=== PATIENT | male | born 1960 | race Caucasian/White ===

== ENCOUNTER → 2018-05-26 10:03 | Outpatient (CLI) | payer OTHER, SELFPAY ==
[2018-05-26 11:02] LABS: BUN Creatinine Ratio 26.4 (6-22); Blood Urea Nitrogen 29 mg/dL (9-20); Calcium 10.1 mg/dL (8.4-10.2); Carbon Dioxide 23 mmol/L (22-32); Chloride 106 mmol/L (98-107); Cholesterol 183 mg/dL (140-199); Estimated Glomerular Filt Rate > 60.0 mL/min (>60); Glucose 111 mg/dL (70-100); HDL Cholesterol 42 mg/dL (40-60); HEMOLYSIS < 15 (0-50); LDL Cholesterol Calculated 103 mg/dL (<100); Potassium 4.8 mmol/L (3.4-5.1); Sodium 143 mmol/L (137-145); Triglycerides 191 mg/dL (35-150)
[2018-05-26 11:17] LABS: Vitamin D 25 Hydroxy (D3) 30.7 ng/mL (30.0-100.0)
== END ==
PROVIDERS: PCP Student in an Organized Health Care Education/Training Program; Visit Provider Student in an Organized Health Care Education/Training Program
DX: Z13.220 Encounter for screening for lipoid disorders (principal); E55.9 Vitamin D deficiency, unspecified; Z87.442 Personal history of urinary calculi
CPT/HCPCS: 36415; 80048; 80061; 82306

== ENCOUNTER → 2019-10-10 09:33 | Outpatient (CLI) | payer OTHER, SELFPAY ==
[2019-10-10 11:20] LABS: Hemoglobin A1C% w Est Avg Glu 6.5 % (4.0-6.0)
[2019-10-10 11:23] LABS: BUN Creatinine Ratio 17.3 (6-22); Blood Urea Nitrogen 19 mg/dL (9-20); Calcium 10.1 mg/dL (8.4-10.2); Carbon Dioxide 27 mmol/L (22-32); Chloride 103 mmol/L (98-107); Estimated Glomerular Filt Rate > 60.0 mL/min (>60); Glucose 102 mg/dL (70-100); HEMOLYSIS < 15 (0-50); Potassium 5.1 mmol/L (3.4-5.1); Sodium 139 mmol/L (137-145)
== END ==
PROVIDERS: PCP Student in an Organized Health Care Education/Training Program; Referring Provider Student in an Organized Health Care Education/Training Program; Visit Provider Student in an Organized Health Care Education/Training Program
DX: E66.9 Obesity, unspecified (principal); I10 Essential (primary) hypertension
CPT/HCPCS: 36415; 80048; 83036

== ENCOUNTER 2020-04-21 13:54 | Emergency (ER) | payer OTHER, SELFPAY ==
[2020-04-21 14:26] VITALS: BP 126/83; PULSE 85; RESP 12; TEMP 36.8; O2SAT 96; BMI 38.0
--- NOTE | 2020-04-21 14:34 | DI.RAD.S_ITS ---
PROCEDURE: XR KUB INDICATIONS: left flank pain hx protein stones TECHNIQUE: One view of the abdomen acquired. COMPARISON: CT, ABDOMEN WITH CONTRAST, 05/14/2010, 14:05. FINDINGS: Surgical changes and devices: None. Bowel: Bowel gas pattern is normal. Soft tissues: No kidney stones identified. No suspicious abdominal calcifications. Visualized solid organ contours appear normal in size. Bones: No suspicious bony lesions. Bilateral hip arthroplasties. IMPRESSION: No kidney stones identified. Consider further evaluation with CT KUB. Dictated by: Gonzalez Laird M.D. on 04/21/2020 at 13:53 Approved by: Gonzalez Larid M.D. on 04/21/2020 at 13:54
[2020-04-21 15:06] LABS: Add Manual Diff / Slide Review NO; Basophils Absolute Auto 100 /uL (0-100); Basophils Percent Auto 0.8 % (0-2); Eosinophils Absolute Auto 200 /uL (0-450); Eosinophils Percent Auto 1.3 % (2-4); Hematocrit 47.8 % (41-53); Hemoglobin 15.9 g/dL (13.5-17.5); Lymphocytes Absolute Auto 1600 /uL (1100-4500); Lymphocytes Percent Auto 12.2 % (25-40); Mean Corpuscular HGB Conc 33.3 % (30-36); Mean Corpuscular Hemoglobin 29.7 PG (26-34); Mean Corpuscular Volume 89.3 fL (80-100); Monocytes Absolute Auto 1100 /uL (0-900); Neutrophils Absolute Auto 10400 /uL (1500-7000); Neutrophils Percent Auto 77.7 % (50-75); Platelet Count 361 X10^3/uL (150-400); Red Blood Cell Count 5.36 X10^6/uL (4.5-5.9); Red Cell Distribution Width 14.5 % (11.6-14.8); White Blood Cell Count 13.4 X10^3/uL (4.5-11.0)
[2020-04-21 15:15] LABS: Alanine Aminotransferase 27 IU/L (<50); Albumin Globulin Ratio 1.4 (1.0-2.8); Alkaline Phosphatase 53 U/L (38-126); Aspartate Aminotransferase 29 IU/L (17-59); BUN Creatinine Ratio 16.2 (6-22); Bilirubin Total 1.3 mg/dL (0.2-1.3); Blood Urea Nitrogen 22 mg/dL (9-20); Calcium 9.9 mg/dL (8.4-10.2); Carbon Dioxide 27 mmol/L (22-32); Chloride 97 mmol/L (98-107); Estimated Glomerular Filt Rate 53.5 mL/min (>60); Globulin 3.7 g/dL (1.7-4.1); Glucose 118 mg/dL (80-110); HEMOLYSIS 21 (0-50); Potassium 4.7 mmol/L (3.4-5.1); Sodium 134 mmol/L (137-145); Total Protein 8.7 g/dL (6.3-8.2)
--- NOTE | 2020-04-21 16:44 | PC.NURSE ---
pt with history of protein kidney stones. having L flank pain radiating to grown. taking flowmax which is helping his urinary flow. States this feels like previous episodes of stones. denies blood in urine.
[2020-04-21 16:56] VITALS: PULSE 75; O2SAT 96
--- NOTE | 2020-04-21 16:58 | DI.CT.S_ITS ---
PROCEDURE: CT KIDNEY URETER BLADDER (KUB) INDICATIONS: left flank pain, hx stones TECHNIQUE: Noncontrast 5 mm thick sections acquired from the diaphragms to the symphysis. 5 mm thick coronal and sagittal reformats were then performed. For radiation dose reduction, the following was used: automated exposure control, adjustment of mA and/or kV according to patient size. COMPARISON: [facility], CT, ABDOMEN WITH CONTRAST, 05/14/2010, 14:05. [facility], CR, XR KUB, 04/21/2020, 14:33. FINDINGS: Image quality: There is artifact associated with the metallic hardware. Lung bases: Lung bases are clear. Heart size is normal. Urinary system: Both kidneys are normal in size. No kidney stones. No hydronephrosis or perinephric fat stranding. Both ureters appear non-dilated throughout their expected courses. Bladder wall thickness is normal; no calcified bladder stones. Other solid organs: Liver is normal in size. Gallbladder wall is not thickened. Pancreas is normal in contours. Spleen is normal in size. No adrenal nodules. Peritoneum and bowel: Unenhanced bowel loops demonstrate normal wall thickness and caliber. No free fluid or air. Colonic diverticulosis is seen, without findings of active diverticulitis. Nodes and vessels: No retroperitoneal or mesenteric adenopathy by size criteria. Aorta and inferior vena cava are normal in caliber. Abdominal wall: A mild periumbilical hernia is seen, containing fat. Pelvis: No free pelvic fluid. No inguinal hernias or adenopathy. Bones: No suspicious bony lesions. Bilateral hip arthroplasty hardware is seen. No vertebral body compression fractures. Focal L4-L5 degenerative change is seen. Milder degenerative changes are seen elsewhere. IMPRESSION: No findings of stones or obstructive uropathy can be seen. Incidental note is made of: Fat containing periumbilical hernia Focal L4-5 degenerative change Diverticulosis, without active diverticulitis Bilateral hip arthroplasty hardware, with associated streak artifact Dictated by: Anthony Alarcon M.D. on 04/21/2020 at 16:36 Approved by: Anthony Alarcon M.D. on 04/21/2020 at 16:38
[2020-04-21] MEDS: SODIUM CHLORIDE 0.9% 1,000 ML 1000 ML IV (17:18)
--- NOTE | 2020-04-21 20:19 | ED_ITS ---
HPI - Male Genitourinary <HARRIETT Restrepo - Last Filed: 04/21/20 20:23> General Chief complaint: Urogenital-Male Stated complaint: lower abdominal/groin pain/stones Time Seen by Provider: 04/21/20 16:52 Source: patient and family Mode of arrival: Ambulatory Limitations: no limitations History of Present Illness HPI Narrative: The patient is a 59-year-old male nonsmoker presents with a chief complaint of left-sided flank pain radiating around to the left side of his groin. He has a history of kidney stones, states this feels incredibly from earlier. States that it came on about 3 days ago. Has nausea and vomiting when he has severe pain. Pain is colicky. Denies any fevers dysuria or hematuria. Denies any chest pain or shortness of breath. He has taken 1 pain pill this m orning because the pain got very bad. He states that using incredibly pain when he got here, urinated and felt much improved once he came back to the emergency department from the waiting room. Related Data Previous Rx's Medication Instructions Recorded aspirin 81 mg chewable tablet 81 mg PO DAILY #30 tab 05/15/18 lisinopril 20 1 tab PO DAILY #90 tab 11/06/19 mg-hydrochlorothiazide 25 mg tablet potassium citrate 10 mEq (1,080 10 meq PO QDAY #90 tab 11/06/19 mg) tablet,extended release tamsulosin 0.4 mg capsule 0.4 mg PO DAILY 14 Days #14 cap 04/20/20 Allergies Allergy/AdvReac Type Severity Reaction Status Date / Time No Known Drug Allergies Allergy Verified 04/21/20 14:31 Review of Systems <HARRIETT Restrepo - Last Filed: 04/21/20 20:23> Review of Systems Narrative: GENERAL: Denies chills, fatigue, malaise, fever, sweats. HEENT: Denies sinus pain, ear pain, sore throat, difficulty swallowing, dizziness. RESPIRATORY: Denies dyspnea, cough, wheezing, hemoptysis, sputum. CARDIOVASCULAR: Denies chest pain, palpitations, orthopnea, edema, GASTROINTESTINAL: See HPI : See HPI MUSCULOSKELETAL: denies weakness, joint pain, or bony pain SKIN: Denies rash, skin lesions, or other NEUROLOGIC: Denies weakness, headache, numbness, change in speech, confusion, seizures, incoordination. PSYCHIATRIC: No concerning psychosocial issues. 12 point review of systems is negative except for those stated above Patient History <HRARIETT Restrepo - Last Filed: 04/21/20 20:23> Medical History (Updated 04/21/20 @ 18:35 by HARRIETT Restrepo) ADD (attention deficit disorder) (Chronic) Carpal tunnel syndrome (Resolved 2012) Colon polyps (Resolved 04/2017) Diverticulosis of colon (Resolved 04/2017) External hemorrhoids without complication (Chronic) Hypertension (Chronic 1989) Kidney stones (Resolved 2000) Low testosterone (Chronic 2011) Obesity (BMI 35.0-39.9 without comorbidity) (Chronic) Osteoarthritis (Chronic) Surgical History (Updated 05/15/18 @ 15:17 by Esteban Newsome MD) History of carpal tunnel repair (Resolved 11/2013) History of hip surgery (Resolved ~11/2016) History of lithotripsy (Resolved) Hx of colonoscopy with polypectomy (Resolved 04/2017) Family History (Updated 07/06/16 @ 00:00 by Conversion Provider) Brother Age: 71 Hypertension Brother Age: 68 Hypertension Father Colon cancer Heart disease Grandfather Cancer Mother Cancer Social History Smoking Status: Never smoker alcohol intake: never substance use type: does not use Smoking Status: Never smoker Substance Use Type: marijuana Exam <HARRIETT Restrepo - Last Filed: 04/21/20 20:23> Narrative Exam Narrative: GENERAL: This is a well-nourished, well-developed patient, in no acute distress HEAD: Atraumatic. Normocephalic. No temporal or scalp tenderness. EYES: Pupils equal round and reactive. Extraocular motions intact. No scleral icterus. No injection or drainage. ENT: Nose without bleeding, purulent drainage or septal hematoma. Wearing a mask Airway patent. NECK: Trachea midline. No JVD or lymphadenopathy. Supple, nontender, no meningeal signs. CARDIOVASCULAR: Regular rate and rhythm RESPIRATORY: Clear to auscultation. Breath sounds equal bilaterally. No wheezes, rales, or rhonchi. No cough. No increased respiratory effort. No accessory muscle use. GASTROINTESTINAL: Abdomen soft, non-tender, nondistended. No hepato- splenomegaly, or palpable masses. No guarding. EXTREMITIES: No clubbing, cyanosis, or edema. No joint tenderness, effusion, or edema noted. BACK: Nontender without deformity or crepitance. No flank tenderness. NEURO: AOx3. SKIN: No rash or erythema on visible skin Initial Vital Signs Initial Vital Signs: Vital Signs Temperature 98.3 F 04/21/20 14:26 Pulse Rate 85 04/21/20 14:26 Respiratory Rate 12 04/21/20 14:26 Blood Pressure 126/83 04/21/20 14:26 Pulse Oximetry 96 04/21/20 14:26 <Tamar Hernandez MD - Last Filed: 04/29/20 08:28> Initial Vital Signs Initial Vital Signs: Vital Signs Temperature 98.3 F 04/21/20 14:26 Pulse Rate 85 04/21/20 14:26 Respiratory Rate 12 04/21/20 14:26 Blood Pressure 126/83 04/21/20 14:26 Pulse Oximetry 96 04/21/20 14:26 Scores <HARRIETT Restrepo - Last Filed: 04/21/20 20:23> GCS Sarah coma scale eye opening: Spontaneous [place] coma scale verbal response: Orientated [place] coma scale motor response: Obey commands [place] coma scale total score: 15 Course <HARRIETT Restrepo - Last Filed: 04/21/20 20:23> Orders Ordered: Discontinued Medications Sodium Chloride (Normal Saline 0.9%) 1,000 mls @ 1,000 mls/hr IV BOLUS ONE Stop: 04/21/20 17:57 Last Infusion: 04/21/20 18:21 Dose: 0 mls/hr Documented by: Admin: 04/21/20 17:18 Dose: 1,000 mls/hr Documented by: CARMEN Vital Signs Vital signs: Vital Signs - 8 hr 04/21/20 14:26 04/21/20 16:56 Temperature 98.3 F Pulse Rate 85 75 Respiratory Rate 12 Blood Pressure 126/83 Pulse Oximetry 96 96 <Tamar Hernandez MD - Last Filed: 04/29/20 08:28> Orders Ordered: Discontinued Medications Sodium Chloride (Normal Saline 0.9%) 1,000 mls @ 1,000 mls/hr IV BOLUS ONE Stop: 04/21/20 17:57 Last Infusion: 04/21/20 18:21 Dose: 0 mls/hr Documented by: Admin: 04/21/20 17:18 Dose: 1,000 mls/hr Documented by: CARMEN Vital Signs Vital signs: Vital Signs - 8 hr 04/21/20 14:26 04/21/20 16:56 Temperature 98.3 F Pulse Rate 85 75 Respiratory Rate 12 Blood Pressure 126/83 Pulse Oximetry 96 96 MDM - Male Genitourinary <SUSAN Restrepo - Last Filed: 04/21/20 20:23> Lab Data Result diagrams: 04/21/20 14:58 04/21/20 14:58 Labs: Lab Results 04/21/20 04/21/20 Range/Units 14:58 14:58 WBC 13.4 H (4.5-11.0) X10^3/uL RBC 5.36 (4.5-5.9) X10^6/uL Hgb 15.9 (13.5-17.5) g/dL Hct 47.8 (41-53) % MCV 89.3 (80-100) fL MCH 29.7 (26-34) PG MCHC 33.3 (30-36) % RDW 14.5 (11.6-14.8) % Plt Count 361 (150-400) X10^3/uL Neut % (Auto) 77.7 H (50-75) % Lymph % (Auto) 12.2 L (25-40) % [place] % (Auto) 8.0 (3-14) % Eos % (Auto) 1.3 L (2-4) % Baso % (Auto) 0.8 (0-2) % Neut # (Auto) 90693 H (7998-6034) /uL Lymph # (Auto) 1600 (0306-4921) /uL [place] # (Auto) 1100 H (0-900) /uL Eos # (Auto) 200 (0-450) /uL Baso # (Auto) 100 (0-100) /uL Sodium 134 L (137-145) mmol/L Potassium 4.7 (3.4-5.1) mmol/L Chloride 97 L (98-107) mmol/L Carbon Dioxide 27 (22-32) mmol/L BUN 22 H (9-20) mg/dL Creatinine 1.36 H (0.66-1.25) mg/dL Estimated GFR 53.5 L (>60) mL/min BUN/Creatinine Ratio 16.2 (6-22) Glucose 118 H (80-110) mg/dL Calcium 9.9 (8.4-10.2) mg/dL Total Bilirubin 1.3 (0.2-1.3) mg/dL AST 29 (17-59) IU/L ALT 27 (<50) IU/L Alkaline Phosphatase 53 (38-126) U/L Total Protein 8.7 H (6.3-8.2) g/dL Albumin 5.0 (3.5-5.0) g/dL Globulin 3.7 (1.7-4.1) g/dL Albumin/Globulin Ratio 1.4 (1.0-2.8) Urine Dip Bedside Urine Glucose Negative Bedside Urine Bilirubin - Negative Bedside Urine Ketone - Negative Urine Specific [place] 1.020 Bedside Urine Occult Blood - Negative Bedside Urine pH 6.0 Bedside Urine Protein +/- 15 Bedside Urine Urobilinogen - Negative Bedside Urine Nitrite - Negative Bedside Urine Leukocytes - Negative Esterase Imaging Data CT scan - abdomen/pelvis: Radiologist's Impression: [address] [place] [address] CT Scan Report Signed Patient: Tru Boykin [facility]#: [id number] : 1960Acct:[id number] Age/Sex: 59 / MDate of Service: 04/21/20 Loc: ED Accession Number: [id number] Procedure: CT kidney ureter bladder (KUB) Ordering Provider: Claudia Crews [employer]- PROCEDURE: CT KIDNEY URETER BLADDER (KUB) INDICATIONS: left flank pain, hx stones TECHNIQUE: Noncontrast 5 mm thick sections acquired from the diaphragms to the symphysis. 5 mm thick coronal and sagittal reformats were then performed. For radiation dose reduction, the following was used: automated exposure control, adjustment of mA and/or kV according to patient size. COMPARISON: [facility], CT, ABDOMEN WITH CONTRAST, 05/14/2010, 14:05. [facility], CR, XR KUB, 04/21/2020, 14:33. FINDINGS: Image quality: There is artifact associated with the metallic hardware. Lung bases: Lung bases are clear. Heart size is normal. Urinary system: Both kidneys are normal in size. No kidney stones. No hydronephrosis or perinephric fat stranding. Both ureters appear non-dilated throughout their expected courses. Bladder wall thickness is normal; no calcified bladder stones. Other solid organs: Liver is normal in size. Gallbladder wall is not thickened. Pancreas is normal in contours. Spleen is normal in size. No adrenal nodules. Peritoneum and bowel: Unenhanced bowel loops demonstrate normal wall thickness and caliber. No free fluid or air. Colonic diverticulosis is seen, without findings of active diverticulitis. Nodes and vessels: No retroperitoneal or mesenteric adenopathy by size criteria. Aorta and inferior vena cava are normal in caliber. Abdominal wall: A mild periumbilical hernia is seen, containing fat. Pelvis: No free pelvic fluid. No inguinal hernias or adenopathy. Bones: No suspicious bony lesions. Bilateral hip arthroplasty hardware is seen. No vertebral body compression fractures. Focal L4-L5 degenerative change is seen. Milder degenerative changes are seen elsewhere. IMPRESSION: No findings of stones or obstructive uropathy can be seen. Abdominal x-ray: Radiologist's Impression: [address] [place] [id number] XRay Report Signed Patient: Tru Boykin [facility]#: [id number] : 1960Acct:[id number] Age/Sex: 59 / MDate of Service: 04/21/20 Loc: ED Accession Number: [id number] Procedure: XR KUB Ordering Provider: Claudia Crews PROCEDURE: XR KUB INDICATIONS: left flank pain hx protein stones TECHNIQUE: One view of the abdomen acquired. COMPARISON: CT, ABDOMEN WITH CONTRAST, 05/14/2010, 14:05. FINDINGS: Surgical changes and devices: None. Bowel: Bowel gas pattern is normal. Soft tissues: No kidney stones identified. No suspicious abdominal calcifications. Visualized solid organ contours appear normal in size. Bones: No suspicious bony lesions. Bilateral hip arthroplasties. IMPRESSION: No kidney stones identified. Consider further evaluation with CT KUB. Dictated by: Gonzalez Laird M.D. on 04/21/2020 at 13:53 Approved by: Gonzalez Laird M.D. on 04/21/2020 at 13:54 [facility] Narrative Medical decision making narrative: The patient is a 59-year-old male presents with a chief complaint of left-sided flank pain radiating around his abdomen who presents believing he has a kidney stone. He has a history thereof. He was initially and much discomfort, then urinated and felt much improved. He has no obvious kidney stone on imaging. His creatinine is slightly increased to 1.36. Given his presentation and complaints, consistency with previous presentations of kidney stones, it is entirely possible that he had a stone and passed it prior to imaging today. I discussed at length rest, pushing fluids, following up with primary care provider in the next few days to monitor renal function etcetera. Patient has no questions or concerns upon discharge and states understanding return precautions as well as follow-up care. The patient declined any pain medications on discharge. He has no signs of infection in his urine and appears well and hemodynamically stable throughout his stay in the emergency department. Patient and have no questions or concerns upon discharge and state understanding return precautions as well as follow-up care. <Tamar Hernandez MD - Last Filed: 04/29/20 08:28> Lab Data Labs: Lab Results 04/21/20 04/21/20 Range/Units 14:58 14:58 WBC 13.4 H (4.5-11.0) X10^3/uL RBC 5.36 (4.5-5.9) X10^6/uL Hgb 15.9 (13.5-17.5) g/dL Hct 47.8 (41-53) % MCV 89.3 (80-100) fL MCH 29.7 (26-34) PG MCHC 33.3 (30-36) % RDW 14.5 (11.6-14.8) % Plt Count 361 (150-400) X10^3/uL Neut % (Auto) 77.7 H (50-75) % Lymph % (Auto) 12.2 L (25-40) % [place] % (Auto) 8.0 (3-14) % Eos % (Auto) 1.3 L (2-4) % Baso % (Auto) 0.8 (0-2) % Neut # (Auto) 12544 H (7672-3171) /uL Lymph # (Auto) 1600 (1857-9257) /uL [place] # (Auto) 1100 H (0-900) /uL Eos # (Auto) 200 (0-450) /uL Baso # (Auto) 100 (0-100) /uL Sodium 134 L (137-145) mmol/L Potassium 4.7 (3.4-5.1) mmol/L Chloride 97 L (98-107) mmol/L Carbon Dioxide 27 (22-32) mmol/L BUN 22 H (9-20) mg/dL Creatinine 1.36 H (0.66-1.25) mg/dL Estimated GFR 53.5 L (>60) mL/min BUN/Creatinine Ratio 16.2 (6-22) Glucose 118 H (80-110) mg/dL Calcium 9.9 (8.4-10.2) mg/dL Total Bilirubin 1.3 (0.2-1.3) mg/dL AST 29 (17-59) IU/L ALT 27 (<50) IU/L Alkaline Phosphatase 53 (38-126) U/L Total Protein 8.7 H (6.3-8.2) g/dL Albumin 5.0 (3.5-5.0) g/dL Globulin 3.7 (1.7-4.1) g/dL Albumin/Globulin Ratio 1.4 (1.0-2.8) Urine Dip Bedside Urine Glucose Negative Bedside Urine Bilirubin - Negative Bedside Urine Ketone - Negative Urine Specific [place] 1.020 Bedside Urine Occult Blood - Negative Bedside Urine pH 6.0 Bedside Urine Protein +/- 15 Bedside Urine Urobilinogen - Negative Bedside Urine Nitrite - Negative Bedside Urine Leukocytes - Negative Esterase Discharge Plan Departure Patient Disposition: Home Clinical Impression: Acute flank pain Discharge Date/Time: 04/21/20 18:37 Instructions: DI for Abdominal Pain-Adult, DI for Flank Pain Activity Restrictions/Additional Instructions: Thank you for trusting us with your care today. As discussed, your CT shows no evidence of stones at this point time Given her initial presentation, I believe it is likely that you passed a stone. Please rest and push fluids Your creatinine did increase slightly. Please follow-up with primary care provider so this can be monitored. Please come back to the emergency department for any acute concerns. Prescriptions: No Action aspirin 81 mg tablet,chewable 81 mg PO DAILY Qty: 30 RF: 0 lisinopril-hydrochlorothiazide 20-25 mg tablet 1 tab PO DAILY Qty: 90 RF: 3 potassium citrate [Urocit-K 10] 10 mEq (1,080 mg) tablet extended release 10 meq PO QDAY Qty: 90 RF: 3 tamsulosin 0.4 mg capsule 0.4 mg PO DAILY 14 Days Qty: 14 RF: 0 Referrals: Esteban Newsome MD [Primary Care Provider] - <Tamar Hernandez MD - Last Filed: 04/29/20 08:28> Cosign ED Attending Cosignature Attestation: I was immediately available in the department for consultation throughout this patient's visit. I agree with documentation as above. Tamar Hernandez MD
== END 2020-04-21 18:37 | disposition home or self-care (01) ==
PROVIDERS: Emergency Provider Nurse Practitioner Family; PCP Student in an Organized Health Care Education/Training Program
DX: R10.9 Unspecified abdominal pain (principal); R79.89 Other specified abnormal findings of blood chemistry; Z87.442 Personal history of urinary calculi
CPT/HCPCS: 36415; 74018; 74176; 80053; 81003; 85025; 96360; 99284

== ENCOUNTER → 2020-05-16 10:35 | Outpatient (CLI) | payer OTHER, SELFPAY ==
[2020-05-16 12:06] LABS: BUN Creatinine Ratio 23.6 (6-22); Blood Urea Nitrogen 29 mg/dL (9-20); Calcium 10.2 mg/dL (8.4-10.2); Carbon Dioxide 29 mmol/L (22-32); Chloride 102 mmol/L (98-107); Estimated Glomerular Filt Rate > 60.0 mL/min (>60); Glucose 93 mg/dL (80-110); HEMOLYSIS < 15 (0-50); Potassium 4.5 mmol/L (3.4-5.1); Sodium 140 mmol/L (137-145)
== END ==
PROVIDERS: PCP Student in an Organized Health Care Education/Training Program; Referring Provider Student in an Organized Health Care Education/Training Program; Visit Provider Student in an Organized Health Care Education/Training Program
DX: N17.9 Acute kidney failure, unspecified (principal); N20.0 Calculus of kidney
CPT/HCPCS: 36415; 80048

== ENCOUNTER 2020-06-18 07:27 | Emergency (ER) | payer OTHER, SELFPAY ==
--- NOTE | 2020-06-18 07:29 | ED_ITS ---
HPI - Back Pain/Injury General Chief Complaint: Urogenital-Male Stated Complaint: left lower back pain/vomiting x6 days Time Seen by Provider: 06/18/20 07:29 Source: patient Mode of arrival: Ambulatory Limitations: no limitations History of Present Illness HPI Narrative: 59-year-old male nonsmoker with history hypertension and prior kidney stones requiring surgical intervention presents with a chief complaint of about 1 week worth of left flank pain reminiscent of prior stones. He denies any injury nor fever or chills. He has been nauseated and had a few episodes of vomiting that seemed to be associated with spikes in his pain. He denies any provocation or palliation of his pain and states it radiates around his left flank a bit. MD Complaint: back pain Onset (ago): day(s) Duration: intermittent Similar Symptoms Previously: Yes Location: left flank Severity: severe Quality: burning and stabbing Radiation: flank Relieving factors: none Exacerbating factors: none Related Data Previous Rx's Medication Instructions Recorded aspirin 81 mg chewable tablet 81 mg PO DAILY #30 tab 05/15/18 lisinopril 20 1 tab PO DAILY #90 tab 11/06/19 mg-hydrochlorothiazide 25 mg tablet potassium citrate 10 mEq (1,080 10 meq PO QDAY #90 tab 11/06/19 mg) tablet,extended release tamsulosin 0.4 mg capsule 0.4 mg PO DAILY #90 cap 04/30/20 hydrocodone-acetaminophen 1 tab PO Q4-6H PRN #10 tab 06/18/20 ketorolac 10 mg PO Q6H PRN #14 tab 06/18/20 ondansetron 4 mg PO TID-QID PRN #10 tab 06/18/20 tamsulosin [Flomax] 0.4 mg PO DAILY #10 cap 06/18/20 Allergies Allergy/AdvReac Type Severity Reaction Status Date / Time No Known Drug Allergies Allergy Verified 04/21/20 14:31 Review of Systems Constitutional Constitutional: Denies chills, Denies fatigue, Denies fever(s), Denies frequent falls, Denies lethargy and Denies weakness Eyes Eyes: Denies change in vision, Denies eye discharge, Denies irritation and Denies loss of vision ENT Ears, Nose, Mouth, and Throat: Denies change in voice, Denies dizziness, Denies neck pain, Denies sore throat and Denies throat swelling Cardiovascular Cardiovascular: Denies chest pain, Denies irregular heart rhythm, Denies lightheadedness, Denies palpitations, Denies dyspnea, Denies dyspnea on exertion and Denies orthopnea Respiratory Respiratory: Denies cough, Denies dyspnea, Denies dyspnea on exertion and Denies wheezing Gastrointestinal Gastrointestinal: Denies abdominal pain, Denies change in bowel habits, Denies diarrhea, Denies nausea and Denies vomiting Genitourinary Genitourinary: Reports flank pain Genitourinary: Reports flank pain Musculoskeletal Musculoskeletal: Denies neck pain and Denies numbness Integumentary/Breasts Skin/Breast: Denies pruritus, Denies erythema, Denies rash and Denies wounds Neurologic Neurologic: Denies behavioral changes, Denies confusion, Denies dizziness, Denies frequent falls, Denies loss of vision, Denies numbness and Denies weakness Psychiatric Psychiatric: Denies anxiety, Denies behavioral changes, Denies confusion, Denies depression, Denies homicidal ideation and Denies suicidal ideation Endocrine Endocrine: Denies fatigue, Denies flushing and Denies palpitations Hematologic/Lymphatic Hematologic/Lymphatic: Denies easy bruising Allergic/Immunologic Allergic/Immunologic: Denies urticaria, Denies throat swelling and Denies wheezing Patient History Medical History ADD (attention deficit disorder) (Chronic) Carpal tunnel syndrome (Resolved 2012) Colon polyps (Resolved 04/2017) Diverticulosis of colon (Resolved 04/2017) External hemorrhoids without complication (Chronic) Hypertension (Chronic 1989) Kidney stones (Resolved 2000) Low testosterone (Chronic 2011) Obesity (BMI 35.0-39.9 without comorbidity) (Chronic) Osteoarthritis (Chronic) Surgical History History of carpal tunnel repair (Resolved 11/2013) History of hip surgery (Resolved ~11/2016) History of lithotripsy (Resolved) Hx of colonoscopy with polypectomy (Resolved 04/2017) Family History Brother Age: 71 Hypertension Brother Age: 68 Hypertension Father Colon cancer Heart disease Grandfather Cancer Mother Cancer Social History Smoking Status: Never smoker alcohol intake: never substance use type: does not use Smoking Status: Never smoker Substance Use Type: marijuana Exam Narrative Exam Narrative: GENERAL: [59] year old patient appears stated age. Well-no urished, well-developed patient, in mild distress. Obviously uncomfortable, pacing in his room HEAD: Atraumatic. Normocephalic. EYES: Pupils equal round and reactive. Extraocular motions intact. No scleral icterus. No injection or drainage. ENT: Nose without bleeding, purulent drainage. Throat without erythema, tonsillar hypertrophy or exudate. Airway patent. NECK: Trachea midline. Non tender CARDIOVASCULAR: Regular rate and rhythm without murmurs, gallops, or rubs. RESPIRATORY: Clear to auscultation. Breath sounds equal bilaterally. No wheezes, rales, or rhonchi. GASTROINTESTINAL: Abdomen soft, non-tender, nondistended. EXTREMITIES: No edema or joint tenderness. BACK: Nontender without deformity or crepitance. No flank tenderness. NEURO: AOx3. SKIN: No rash or erythema of visible areas Initial Vital Signs Initial Vital Signs: Vital Signs Temperature 98.4 F 06/18/20 07:36 Pulse Rate 93 H 06/18/20 07:36 Respiratory Rate 19 06/18/20 07:36 Blood Pressure 140/88 06/18/20 07:36 Pulse Oximetry 98 06/18/20 07:36 Course Orders Ordered: ED Orders 06/18/20 07:45 Basic Metabolic Panel Stat Complete Blood Count AUTO DIFF Stat 06/18/20 08:32 CT kidney ureter bladder (KUB) Stat Discontinued Medications Sodium Chloride (Normal Saline 0.9%) 1,000 mls @ 1,000 mls/hr IV BOLUS ONE Stop: 06/18/20 08:30 Last Infusion: 06/18/20 09:01 Dose: 0 mls/hr Documented by: Admin: 06/18/20 08:21 Dose: 1,000 mls/hr Documented by: BTONER Ketorolac Tromethamine (Toradol) 15 mg IV NOW ONE Stop: 06/18/20 07:32 Last Admin: 06/18/20 08:25 Dose: 15 mg Documented by: BTONER Ondansetron HCl (Zofran) 4 mg IV Q4HR PRN PRN Reason: Nausea And Vomiting Last Admin: 06/18/20 08:25 Dose: 4 mg Documented by: BTONER Vital Signs Vital signs: Vital Signs - 8 hr 06/18/20 07:36 06/18/20 09:55 Temperature 98.4 F Pulse Rate 93 H Respiratory Rate 19 16 Blood Pressure 140/88 99/61 Pulse Oximetry 98 98 MDM - Back Pain/Injury Lab Data Result diagrams: 06/18/20 07:45 06/18/20 07:45 Labs: Lab Results 06/18/20 06/18/20 Range/Units 07:45 07:45 WBC 9.5 (4.5-11.0) X10^3/uL RBC 5.43 (4.5-5.9) X10^6/uL Hgb 16.4 (13.5-17.5) g/dL Hct 48.5 (41-53) % MCV 89.3 (80-100) fL MCH 30.2 (26-34) PG MCHC 33.8 (30-36) % RDW 14.4 (11.6-14.8) % Plt Count 357 (150-400) X10^3/uL Neut % (Auto) 64.3 (50-75) % Lymph % (Auto) 24.0 L (25-40) % Luce % (Auto) 8.3 (3-14) % Eos % (Auto) 2.7 (2-4) % Baso % (Auto) 0.7 (0-2) % Neut # (Auto) 6100 (9089-9571) /uL Lymph # (Auto) 2300 (8582-6492) /uL Luce # (Auto) 800 (0-900) /uL Eos # (Auto) 300 (0-450) /uL Baso # (Auto) 100 (0-100) /uL Sodium 133 L (137-145) mmol/L Potassium 4.2 (3.4-5.1) mmol/L Chloride 101 (98-107) mmol/L Carbon Dioxide 24 (22-32) mmol/L BUN 20 (9-20) mg/dL Creatinine 1.18 (0.66-1.25) mg/dL Estimated GFR > 60.0 (>60) mL/min BUN/Creatinine Ratio 16.9 (6-22) Glucose 135 H (80-110) mg/dL Calcium 9.6 (8.4-10.2) mg/dL Urine Dip Bedside Urine Glucose Negative Bedside Urine Bilirubin - Negative Bedside Urine Ketone - Negative Urine Specific [place] 1.020 Bedside Urine Occult Blood - Negative Bedside Urine pH 6.0 Bedside Urine Protein - Negative Bedside Urine Urobilinogen - Negative Bedside Urine Nitrite - Negative Bedside Urine Leukocytes - Negative Esterase Imaging Data CT scan - abdomen/pelvis: Radiologist's Impression: 8 Gray Crowley DO Find Patient Imaging - Tru Boykin 59 M 1960 ACTIVITY DATE EXAM STATUS AUTHOR 06/18/20 08:[address] [address] [address] Scan Report Signed Patient: Tru Boykin [facility]#: [id number] : 1960Acct:[id number] Age/Sex: 59 / MDate of Service: 06/18/20 Loc: ED Accession Number: [id number] Procedure: CT kidney ureter bladder (KUB) Ordering Provider: Gray Crowley D.O. PROCEDURE: CT KIDNEY URETER BLADDER (KUB) INDICATIONS: severe L flank pain, hx of stones with surgery TECHNIQUE: Noncontrast 5 mm thick sections acquired from the diaphragms to the symphysis. 5 mm thick coronal and sagittal reformats were then performed. For radiation dose reduction, the following was used: automated exposure control, adjustment of mA and/or kV according to patient size. COMPARISON: [facility], CT, CT KIDNEY URETER BLADDER (KUB), 04/21/2020, 17:00. FINDINGS: Image quality: Excellent. Lung bases: Lung bases are clear. Heart size is normal. Urinary system: Both kidneys are normal in size. A 2 mm nonobstructing calculus is seen in the inferior pole of the right kidney. No hydronephrosis or perinephric fat stranding. Both ureters appear non-dilated throughout their expected courses. Bladder wall thickness is normal; no calcified bladder stones. Other solid organs: Liver is normal in size. Gallbladder appears normal. Pancreas is normal in contours. Spleen is normal in size. No adrenal nodules. Peritoneum and bowel: Multiple diverticula are seen in the colon without signs of acute diverticulitis. The appendix appears normal. No signs of small bowel obstruction. No free fluid or air. Nodes and vessels: No retroperitoneal or mesenteric adenopathy by size criteria. Aorta and inferior vena cava are normal in caliber. Abdominal wall: There is a small fat containing periumbilical hernia. Pelvis: No free pelvic fluid. No inguinal hernias or adenopathy. Bones: No suspicious bony lesions. No vertebral body compression fractures. Postsurgical changes are seen from bilateral hip arthroplasties. Mild degenerative changes are seen in the spine. Stable calcifications are seen at the origin of the left adductor longus muscle that are most likely the sequela of a prior injury/strain. IMPRESSION: 1. Nonobstructing 2 mm calculus in the inferior pole of the right kidney. No hydronephrosis. 2. Colonic diverticulosis without signs of acute diverticulitis. Dictated by: Lew Eastman M.D. on 06/18/2020 at 8:45 Approved by: Lew Eastman M.D. on 06/18/2020 at 8:55 Discharge Plan Departure Patient Disposition: Home Clinical Impression: Acute flank pain Discharge Date/Time: 06/18/20 09:35 Instructions: DI for Kidney Stones Activity Restrictions/Additional Instructions: *You have been diagnosed with [left flank pain, possibly ureteral spasm or a passed kidney stone, however CT does not show a current kidney stone] *What to do: *Take medications as directed: Prescriptions have been sent to [facility] at your request *Follow up with your primary care provider in 2-3 days, call for an appointment. Let them know you were seen in the Emergency Department and that we ask that you be seen in follow up *Return to ER if you should have any new, worsening or concerning symptoms, such as [worsening pain, fever greater than 101 F, shaking chills, persistent v omiting or other bothersome symptoms] Prescriptions: New hydrocodone-acetaminophen 5-325 mg tablet 1 tab PO Q4-6H PRN (Reason: pain) Qty: 10 RF: 0 ketorolac 10 mg tablet 10 mg PO Q6H PRN (Reason: pain) Qty: 14 RF: 0 tamsulosin [Flomax] 0.4 mg capsule 0.4 mg PO DAILY Qty: 10 RF: 0 ondansetron 4 mg tablet,disintegrating 4 mg PO TID-QID PRN (Reason: nausea and vomiting) Qty: 10 RF: 0 No Action aspirin 81 mg tablet,chewable 81 mg PO DAILY Qty: 30 RF: 0 lisinopril-hydrochlorothiazide 20-25 mg tablet 1 tab PO DAILY Qty: 90 RF: 3 potassium citrate [Urocit-K 10] 10 mEq (1,080 mg) tablet extended release 10 meq PO QDAY Qty: 90 RF: 3 tamsulosin 0.4 mg capsule 0.4 mg PO DAILY Qty: 90 RF: 1 Referrals: Esteban Newsome MD [Primary Care Provider] -
[2020-06-18 07:36] VITALS: BP 140/88; PULSE 93; RESP 19; TEMP 36.9; O2SAT 98; BMI 39.3
[2020-06-18 07:54] LABS: Add Manual Diff / Slide Review NO; Basophils Absolute Auto 100 /uL (0-100); Basophils Percent Auto 0.7 % (0-2); Eosinophils Absolute Auto 300 /uL (0-450); Eosinophils Percent Auto 2.7 % (2-4); Hematocrit 48.5 % (41-53); Hemoglobin 16.4 g/dL (13.5-17.5); Lymphocytes Absolute Auto 2300 /uL (1100-4500); Mean Corpuscular HGB Conc 33.8 % (30-36); Mean Corpuscular Hemoglobin 30.2 PG (26-34); Mean Corpuscular Volume 89.3 fL (80-100); Monocytes Absolute Auto 800 /uL (0-900); Monocytes Percent Auto 8.3 % (3-14); Neutrophils Absolute Auto 6100 /uL (1500-7000); Neutrophils Percent Auto 64.3 % (50-75); Platelet Count 357 X10^3/uL (150-400); Red Blood Cell Count 5.43 X10^6/uL (4.5-5.9); Red Cell Distribution Width 14.4 % (11.6-14.8); White Blood Cell Count 9.5 X10^3/uL (4.5-11.0)
[2020-06-18 08:05] LABS: BUN Creatinine Ratio 16.9 (6-22); Blood Urea Nitrogen 20 mg/dL (9-20); Calcium 9.6 mg/dL (8.4-10.2); Carbon Dioxide 24 mmol/L (22-32); Chloride 101 mmol/L (98-107); Estimated Glomerular Filt Rate > 60.0 mL/min (>60); Glucose 135 mg/dL (80-110); HEMOLYSIS 24 (0-50); Potassium 4.2 mmol/L (3.4-5.1); Sodium 133 mmol/L (137-145)
[2020-06-18] MEDS: SODIUM CHLORIDE 0.9% 1,000 ML 1000 ML IV (08:21)
[2020-06-18] MEDS: ONDANSETRON 4 MG/2 ML INJ IV (08:25)
[2020-06-18] MEDS: KETOROLAC 60 MG/2 ML VIAL 15 MG IV (08:25)
--- NOTE | 2020-06-18 08:32 | DI.CT.S_ITS ---
PROCEDURE: CT KIDNEY URETER BLADDER (KUB) INDICATIONS: severe L flank pain, hx of stones with surgery TECHNIQUE: Noncontrast 5 mm thick sections acquired from the diaphragms to the symphysis. 5 mm thick coronal and sagittal reformats were then performed. For radiation dose reduction, the following was used: automated exposure control, adjustment of mA and/or kV according to patient size. COMPARISON: [facility], CT, CT KIDNEY URETER BLADDER (KUB), 04/21/2020, 17:00. FINDINGS: Image quality: Excellent. Lung bases: Lung bases are clear. Heart size is normal. Urinary system: Both kidneys are normal in size. A 2 mm nonobstructing calculus is seen in the inferior pole of the right kidney. No hydronephrosis or perinephric fat stranding. Both ureters appear non-dilated throughout their expected courses. Bladder wall thickness is normal; no calcified bladder stones. Other solid organs: Liver is normal in size. Gallbladder appears normal. Pancreas is normal in contours. Spleen is normal in size. No adrenal nodules. Peritoneum and bowel: Multiple diverticula are seen in the colon without signs of acute diverticulitis. The appendix appears normal. No signs of small bowel obstruction. No free fluid or air. Nodes and vessels: No retroperitoneal or mesenteric adenopathy by size criteria. Aorta and inferior vena cava are normal in caliber. Abdominal wall: There is a small fat containing periumbilical hernia. Pelvis: No free pelvic fluid. No inguinal hernias or adenopathy. Bones: No suspicious bony lesions. No vertebral body compression fractures. Postsurgical changes are seen from bilateral hip arthroplasties. Mild degenerative changes are seen in the spine. Stable calcifications are seen at the origin of the left adductor longus muscle that are most likely the sequela of a prior injury/strain. IMPRESSION: 1. Nonobstructing 2 mm calculus in the inferior pole of the right kidney. No hydronephrosis. 2. Colonic diverticulosis without signs of acute diverticulitis. Dictated by: Lew Eastman M.D. on 06/18/2020 at 8:45 Approved by: Lew Eastman M.D. on 06/18/2020 at 8:55
--- NOTE | 2020-06-18 08:44 | PC.NURSE ---
pt states feels like last time kidney stone.
[2020-06-18 09:55] VITALS: BP 99/61; RESP 16; O2SAT 98
== END 2020-06-18 09:35 | disposition home or self-care (01) ==
PROVIDERS: Emergency Provider Emergency Medicine; PCP Student in an Organized Health Care Education/Training Program
DX: R10.9 Unspecified abdominal pain (principal); R11.2 Nausea with vomiting, unspecified; Z87.442 Personal history of urinary calculi
CPT/HCPCS: 36415; 74176; 80048; 81003; 85025; 96361; 96374; 96375; 99284; J1885; J2405

== ENCOUNTER → 2020-06-20 17:01 | Outpatient (ROUT) | payer OTHER, SELFPAY ==
[2020-06-20 17:22] LABS: Hemoglobin A1C% w Est Avg Glu 6.4 % (4.0-6.0)
[2020-06-20 17:52] LABS: Prostate Specific Antigen Scrn 2.38 ng/mL (0.1-4.0)
== END ==
PROVIDERS: PCP Student in an Organized Health Care Education/Training Program; Visit Provider Student in an Organized Health Care Education/Training Program
DX: R73.03 Prediabetes (principal); Z12.5 Encounter for screening for malignant neoplasm of prostate
CPT/HCPCS: 83036; G0103

== ENCOUNTER → 2020-07-08 09:52 | Outpatient (CLI) | payer OTHER, SELFPAY ==
--- NOTE | 2020-07-08 11:33 | DIET.PN ---
Diabetes Intake: Initial Assessment Assess: Mr. Nunez is a 59 YOM referred for type 2 diabetes with a hx of kidney stones and obesity. He has been able to manage his diabetes without medication, but knows he needs to lose weight to avoid complications. 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 He does not have a glucometer. He reports nearly 30 lb weight loss since making dietary changes for improved glycemic control and kidney health. Labs: Per pt report: 6.5 Meds: na Diet: per 24 hr recall: B: 2 brkfast burritos, hashbrown, diet soda; oatmeal w/ helton L: 12 subway sandw on WW bread D: chicken stirfry w/ br rice Sn: potato chips, popcorn Wt: 280lb Ht: 72 in BMI: 38 BP: 140.80 DX: Altered nutrition related laboratory values related to impaired glucose metabolism, lack of previous exposure to nutrition information as evidenced by pt report, diagnosis of diabetes, previous diet high in refined carbohydrates. Intervention: 1. Completed intake assessment. Discussed barriers to care. 2. Discussed pathophysiology of diabetes. Reviewed A1c and its correlation to blood glucose numbers. Discussed recommended BG ranges. 3. Discussed importance of self-monitoring, how often, and when to check. 4. Reviewed hyper/hypoglycemia and treatment. 5. Reviewed safe disposal of equipment (strip/lancets/insulin needles). 6. Created SMART goals for pt self-care and success. 7. Discussed program curriculum outline and class needs based on individual goals. SMART Goals: 1. Pt goal of 225lb through improved dietary habits including portion control, calorie counting, and consistent carb intake as well as incorporating resistance training at least 2 x/week. Monitor/Evaluate: Pt will attend full DSME program. Basic Nutrition class scheduled for Jul 31.
== END ==
PROVIDERS: PCP Student in an Organized Health Care Education/Training Program; Referring Provider Student in an Organized Health Care Education/Training Program; Visit Provider Student in an Organized Health Care Education/Training Program
DX: E11.9 Type 2 diabetes mellitus without complications (principal); E66.9 Obesity, unspecified; Z71.3 Dietary counseling and surveillance; Z68.38 Body mass index [BMI] 38.0-38.9, adult; Z87.442 Personal history of urinary calculi
CPT/HCPCS: G0108

== ENCOUNTER 2020-07-13 05:47 | Emergency (ER) | payer OTHER, SELFPAY ==
[2020-07-13 05:56] VITALS: BP 139/86; PULSE 72; RESP 18; TEMP 37; O2SAT 96; BMI 38.0
--- NOTE | 2020-07-13 06:00 | ED_ITS ---
HPI - Male Genitourinary General Chief complaint: Urogenital-Male Stated complaint: right side pain Time Seen by Provider: 07/13/20 06:00 Source: patient Mode of arrival: Ambulatory Limitations: no limitations History of Present Illness HPI Narrative: 59-year-old male nonsmoker with history hypertension and prior ki dney stones requiring surgical intervention presents with a chief complaint of severe left flank pain with some radiation around his left side that started rather suddenly yesterday and has gradually worsened. He is unable to find a position of comfort and finds himself pacing. He denies provocation or palliation his pain. He has had nausea but denies any vomiting. He was seen here few weeks ago and diagnosed with the 2 mm stone on a CT scan and encouraged to follow-up with his primary care provider. He was then referred to local urology and had an evaluation. No interventions were performed. He denies runny nose, sore throat or cough. He denies chest pain or shortness of breath. He denies fever or chills. Onset (ago): hour(s) Duration: intermittent Severity: moderate Quality: aching and sharp Relieving factors: none Exacerbating factors: none Related Data Previous Rx's Medication Instructions Recorded aspirin 81 mg chewable tablet 81 mg PO DAILY #30 tab 05/15/18 lisinopril 20 1 tab PO DAILY #90 tab 11/06/19 mg-hydrochlorothiazide 25 mg tablet potassium citrate 10 mEq (1,080 10 meq PO QDAY #90 tab 11/06/19 mg) tablet,extended release tamsulosin 0.4 mg capsule 0.4 mg PO DAILY #90 cap 06/20/20 ketorolac 10 mg PO Q6H PRN #14 tab 07/13/20 cephalexin [Keflex] 500 mg PO TID #21 cap 07/14/20 cyclobenzaprine 10 mg PO TID PRN #12 tab 07/14/20 hydrocodone-acetaminophen 1 tab PO Q6H PRN #10 tab 07/14/20 hydrocodone-acetaminophen [Max] 1 tab PO Q4-6H PRN #10 tab 07/14/20 ondansetron HCl [Zofran] 4 mg PO Q6H PRN #14 tab 07/14/20 Allergies Allergy/AdvReac Type Severity Reaction Status Date / Time No Known Drug Allergies Allergy Verified 07/14/20 11:47 Review of Systems Constitutional Constitutional: Denies chills, Denies fatigue, Denies fever(s), Denies frequent falls, Denies lethargy and Denies weakness Eyes Eyes: Denies change in vision, Denies eye discharge, Denies irritation and Denies loss of vision ENT Ears, Nose, Mouth, and Throat: Denies change in voice, Denies dizziness, Denies neck pain, Denies sore throat and Denies throat swelling Cardiovascular Cardiovascular: Denies chest pain, Denies irregular heart rhythm, Denies ligh theadedness, Denies palpitations, Denies dyspnea, Denies dyspnea on exertion and Denies orthopnea Respiratory Respiratory: Denies cough, Denies dyspnea, Denies dyspnea on exertion and Denies wheezing Gastrointestinal Gastrointestinal: Denies abdominal pain, Denies change in bowel habits, Denies diarrhea, Denies nausea and Denies vomiting Genitourinary Genitourinary: Reports flank pain Genitourinary: Reports flank pain Musculoskeletal Musculoskeletal: Denies neck pain and Denies numbness Integumentary/Breasts Skin/Breast: Denies pruritus, Denies erythema, Denies rash and Denies wounds Neurologic Neurologic: Denies behavioral changes, Denies confusion, Denies dizziness, Denies frequent falls, Denies loss of vision, Denies numbness and Denies weakness Psychiatric Psychiatric: Denies anxiety, Denies behavioral changes, Denies confusion, Denies depression, Denies homicidal ideation and Denies suicidal ideation Endocrine Endocrine: Denies fatigue, Denies flushing and Denies palpitations Hematologic/Lymphatic Hematologic/Lymphatic: Denies easy bruising Allergic/Immunologic Allergic/Immunologic: Denies urticaria, Denies throat swelling and Denies wheezing Patient History Medical History ADD (attention deficit disorder) Carpal tunnel syndrome (2012) Colon polyps (04/2017) Diverticulosis of colon (04/2017) External hemorrhoids without complication Hypertension (1989) Kidney stones (2000) Low testosterone (2011) Obesity (BMI 35.0-39.9 without comorbidity) Osteoarthritis Pre-diabetes Surgical History History of carpal tunnel repair (11/2013) History of hip surgery (~11/2016) History of lithotripsy Hx of colonoscopy with polypectomy (04/2017) Family History Brother Age: 72 Hypertension Brother Age: 69 Hypertension Father Colon cancer Heart disease Grandfather Cancer Mother Cancer Social History Smoking Status: Never smoker alcohol intake: never substance use type: does not use eating out: 1-3 times/week Type(s) of exercise: advised to exercise at least 150 min/week (moderate intensity aerobic) and advised to perform resistance training at least 2x/week Smoking Status: Never smoker Substance Use Type: marijuana Exam Narrative Exam Narrative: GENERAL: [59] year old patient appears stated age. Well- nourished, well-developed patient, in moderate distress, pacing in his room, rubbing his left flank. HEAD: Atraumatic. Normocephalic. EYES: Pupils equal round and reactive. Extraocular motions intact. No scleral icterus. No injection or drainage. ENT: Nose without bleeding, purulent drainage. Throat without erythema, tonsill ar hypertrophy or exudate. Airway patent. NECK: Trachea midline. Non tender CARDIOVASCULAR: Regular rate and rhythm without murmurs, gallops, or rubs. RESPIRATORY: Clear to auscultation. Breath sounds equal bilaterally. No wheezes, rales, or rhonchi. GASTROINTESTINAL: Abdomen soft, non-tender, nondistended. EXTREMITIES: No edema or joint tenderness. BACK: Nontender without deformity or crepitance. No flank tenderness. NEURO: AOx3. SKIN: No rash or erythema of visible areas Initial Vital Signs Initial Vital Signs: Vital Signs Temperature 98.6 F 07/13/20 05:56 Pulse Rate 72 07/13/20 05:56 Respiratory Rate 18 07/13/20 05:56 Blood Pressure 139/86 07/13/20 05:56 Pulse Oximetry 96 07/13/20 05:56 Course Orders Ordered: Discontinued Medications Sodium Chloride (Normal Saline 0.9%) 1,000 mls @ 1,000 mls/hr IV BOLUS ONE Stop: 07/13/20 07:00 Last Infusion: 07/13/20 07:03 Dose: 0 mls/hr Documented by: Admin: 07/13/20 06:17 Dose: 1,000 mls/hr Documented by: FRANCESCO Ketorolac Tromethamine (Ketorolac 60 Mg/2 Ml Vial) 15 mg IV NOW ONE Stop: 07/13/20 06:02 Last Admin: 07/13/20 06:17 Dose: 15 mg Documented by: FRANCESCO Ondansetron HCl (Ondansetron 4 Mg/2 Ml Inj) 4 mg IV Q4HR PRN PRN Reason: Nausea And Vomiting Last Admin: 07/13/20 06:17 Dose: 4 mg Documented by: FRANCESCO Vital Signs Vital signs: Vital Signs - 8 hr 07/13/20 05:56 Temperature 98.6 F Pulse Rate 72 Respiratory Rate 18 Blood Pressure 139/86 Pulse Oximetry 96 MDM - Male Genitourinary Lab Data Result diagrams: 07/13/20 06:15 07/13/20 06:15 Labs: Lab Results 07/13/20 07/13/20 Range/Units 06:15 06:15 WBC 7.8 (4.5-11.0) X10^3/uL RBC 5.40 (4.5-5.9) X10^6/uL Hgb 16.4 (13.5-17.5) g/dL Hct 48.4 (41-53) % MCV 89.7 (80-100) fL MCH 30.4 (26-34) PG MCHC 33.9 (30-36) % RDW 13.8 (11.6-14.8) % Plt Count 323 (150-400) X10^3/uL Neut % (Auto) 58.8 (50-75) % Lymph % (Auto) 27.0 (25-40) % [place] % (Auto) 9.5 (3-14) % Eos % (Auto) 3.9 (2-4) % Baso % (Auto) 0.8 (0-2) % Neut # (Auto) 4600 (5863-7178) /uL Lymph # (Auto) 2100 (8683-9088) /uL [place] # (Auto) 700 (0-900) /uL Eos # (Auto) 300 (0-450) /uL Baso # (Auto) 100 (0-100) /uL Sodium 136 L (137-145) mmol/L Potassium 4.3 (3.4-5.1) mmol/L Chloride 102 (98-107) mmol/L Carbon Dioxide 26 (22-32) mmol/L BUN 27 H (9-20) mg/dL Creatinine 1.17 (0.66-1.25) mg/dL Estimated GFR > 60.0 (>60) mL/min BUN/Creatinine Ratio 23.1 H (6-22) Glucose 112 H (80-110) mg/dL Calcium 9.8 (8.4-10.2) mg/dL Urine Dip Bedside Urine Glucose Negative Bedside Urine Bilirubin - Negative Bedside Urine Ketone - Negative Urine Specific [place] 1.02 Bedside Urine Occult Blood - Negative Bedside Urine pH 6.0 Bedside Urine Protein - Negative Bedside Urine Urobilinogen - Negative Bedside Urine Nitrite - Negative Bedside Urine Leukocytes - Negative Esterase Discharge Plan Departure Patient Disposition: Home Clinical Impression: Acute flank pain Instructions: DI for Kidney Stones Activity Restrictions/Additional Instructions: *You have been diagnosed with [ left flank pain, possibly a kidney stone or even bowel gas. Xray, labs, and urine are all very reassuring. ] *What to do: *Take medications as directed: Please limit the use of your opioids as there is evidence of increased stool burden in your bowels which may be playing a role in your pain *Follow up with your primary care provider in 2-3 days, call for an appointment. Let them know you were seen in the Emergency Department and that we ask that you be seen in follow up *Return to ER if you should have any new, worsening or concerning symptoms Prescriptions: New ketorolac 10 mg tablet 10 mg PO Q6H PRN (Reason: pain) Qty: 14 RF: 0 No Action aspirin 81 mg tablet,chewable 81 mg PO DAILY Qty: 30 RF: 0 lisinopril-hydrochlorothiazide 20-25 mg tablet 1 tab PO DAILY Qty: 90 RF: 3 potassium citrate [Urocit-K 10] 10 mEq (1,080 mg) tablet extended release 10 meq PO QDAY Qty: 90 RF: 3 tamsulosin 0.4 mg capsule 0.4 mg PO DAILY Qty: 90 RF: 1 cephalexin [Keflex] 500 mg capsule 500 mg PO TID Qty: 21 RF: 0 hydrocodone-acetaminophen 5-325 mg tablet 1 tab PO Q6H PRN (Reason: pain) Qty: 10 RF: 0 ondansetron HCl [Zofran] 4 mg tablet 4 mg PO Q6H PRN (Reason: nausea and vomiting) Qty: 14 RF: 0 hydrocodone-acetaminophen [Max] 5-325 mg tablet 1 tab PO Q4-6H PRN (Reason: pain) Qty: 10 RF: 0 cyclobenzaprine 10 mg tablet 10 mg PO TID PRN (Reason: muscle spasm) Qty: 12 RF: 0 Referrals: Esteban Newsome MD [Primary Care Provider] -
--- NOTE | 2020-07-13 06:12 | DI.RAD.S_ITS ---
PROCEDURE: XR KUB INDICATIONS: left flank pain, known stone TECHNIQUE: One view of the abdomen acquired. COMPARISON: [facility], CR, XR KUB, 04/21/2020, 14:33. [facility], CT, CT KIDNEY URETER BLADDER (KUB), 04/21/2020, 17:00. [facility], CT, CT KIDNEY URETER BLADDER (KUB), 06/18/2020, 8:29. FINDINGS: Surgical changes and devices: Bilateral hip arthroplasty hardware is seen. Bowel: Bowel gas pattern is normal. Soft tissues: No suspicious abdominal calcifications. Visualized solid organ contours appear normal in size. Bones: No suspicious bony lesions. IMPRESSION: No stones are seen by plain film. Note: No significant discrepancy from the preliminary report. Dictated by: Anthony Alarcon M.D. on 07/13/2020 at 7:26 Approved by: Anthony Alarcon M.D. on 07/13/2020 at 7:27
[2020-07-13] MEDS: ONDANSETRON 4 MG/2 ML INJ IV (06:17)
[2020-07-13] MEDS: SODIUM CHLORIDE 0.9% 1,000 ML 1000 ML IV (06:17)
[2020-07-13] MEDS: KETOROLAC 60 MG/2 ML VIAL 15 MG IV (06:17)
[2020-07-13 06:21] LABS: Add Manual Diff / Slide Review NO; Basophils Absolute Auto 100 /uL (0-100); Basophils Percent Auto 0.8 % (0-2); Eosinophils Absolute Auto 300 /uL (0-450); Eosinophils Percent Auto 3.9 % (2-4); Hematocrit 48.4 % (41-53); Hemoglobin 16.4 g/dL (13.5-17.5); Lymphocytes Absolute Auto 2100 /uL (1100-4500); Mean Corpuscular HGB Conc 33.9 % (30-36); Mean Corpuscular Hemoglobin 30.4 PG (26-34); Mean Corpuscular Volume 89.7 fL (80-100); Monocytes Absolute Auto 700 /uL (0-900); Monocytes Percent Auto 9.5 % (3-14); Neutrophils Absolute Auto 4600 /uL (1500-7000); Neutrophils Percent Auto 58.8 % (50-75); Platelet Count 323 X10^3/uL (150-400); Red Cell Distribution Width 13.8 % (11.6-14.8); White Blood Cell Count 7.8 X10^3/uL (4.5-11.0)
[2020-07-13 06:37] LABS: BUN Creatinine Ratio 23.1 (6-22); Blood Urea Nitrogen 27 mg/dL (9-20); Calcium 9.8 mg/dL (8.4-10.2); Carbon Dioxide 26 mmol/L (22-32); Chloride 102 mmol/L (98-107); Estimated Glomerular Filt Rate > 60.0 mL/min (>60); Glucose 112 mg/dL (80-110); HEMOLYSIS < 15 (0-50); Potassium 4.3 mmol/L (3.4-5.1); Sodium 136 mmol/L (137-145)
== END 2020-07-13 07:04 | disposition home or self-care (01) ==
PROVIDERS: Emergency Provider Emergency Medicine; PCP Student in an Organized Health Care Education/Training Program
DX: R10.9 Unspecified abdominal pain (principal); N20.0 Calculus of kidney; R11.0 Nausea
CPT/HCPCS: 36415; 74018; 80048; 81003; 85025; 96361; 96374; 96375; 99281; 99284; J1885; J2405

== ENCOUNTER 2020-07-14 03:24 | Emergency (ER) | payer OTHER, SELFPAY ==
[2020-07-14 03:33] VITALS: BP 139/83; PULSE 86; RESP 20; TEMP 36.4; O2SAT 97; BMI 38.0
--- NOTE | 2020-07-14 03:42 | DI.CT.S_ITS ---
PROCEDURE: CT KIDNEY URETER BLADDER (KUB) INDICATIONS: left flank pain on going for 2 weeks TECHNIQUE: Noncontrast 5 mm thick sections acquired from the diaphragms to the symphysis. 5 mm thick coronal and sagittal reformats were then performed. For radiation dose reduction, the following was used: automated exposure control, adjustment of mA and/or kV according to patient size. COMPARISON: [facility], CT, ABDOMEN WITH CONTRAST, 05/14/2010, 14:05. [facility], CT, CT KIDNEY URETER BLADDER (KUB), 06/18/2020, 8:29. FINDINGS: Image quality: There is metallic streak artifact from patient's bilateral hip prostheses. Lung bases: Lung bases are clear. Heart size is normal. Urinary system: There is a punctate nonobstructing stone within the inferior pole of the right kidney. Bilateral parapelvic cysts are redemonstrated. No evidence of hydronephrosis. Bilateral mild nonspecific perinephric stranding is redemonstrated bilaterally. Visualized ureters appear non-dilated throughout their expected courses. There is minimal periureteral fat stranding along the mid to distal left ureter. The distal ureters are not well visualized at the ureterovesicular junctions. The urinary bladder is also obscured due to metallic streak artifact in the pelvis. Bladder wall appears grossly within normal limits. Other solid organs: There is a small hypodensity in the left hepatic lobe measuring up to 5 mm which appears stable compared to the prior studies. Gallbladder appears within normal limits without calcified gallstones. Pancreas is normal in contours without peripancreatic fat stranding or fluid collections. Spleen is normal in size. No adrenal nodules. Peritoneum and bowel: Unenhanced bowel loops demonstrate normal wall thickness and caliber. The appendix is normal in appearance. There is colonic diverticulosis without acute diverticulitis. No free fluid or air. Nodes and vessels: No retroperitoneal or mesenteric adenopathy by size criteria. Aorta and inferior vena cava are normal in caliber. Abdominal wall: No ventral hernias. Pelvis: No free pelvic fluid. No inguinal hernias or adenopathy. Bones: No suspicious bony lesions. No vertebral body compression fractures. IMPRESSION: 1. No evidence of hydronephrosis. 2. Punctate nonobstructing right renal stone. 3. Nonspecific bilateral perinephric stranding redemonstrated likely representing chronic changes. 4. Minimal periureteral fat stranding along the distal left ureter without associated dilatation is also nonspecific and may reflect a possible recently passed stone. 5. Colonic diverticulosis without acute diverticulitis. Concordant with preliminary interpretation. Dictated by: Bryn Vela M.D. on 07/14/2020 at 8:54 Approved by: Bryn Vela M.D. on 07/14/2020 at 9:06
[2020-07-14] MEDS: SODIUM CHLORIDE 0.9% 1,000 ML 150 ML IV (03:49)
[2020-07-14] MEDS: KETOROLAC 60 MG/2 ML VIAL 15 MG IV (03:49)
[2020-07-14 03:51] LABS: Add Manual Diff / Slide Review NO; Basophils Absolute Auto 100 /uL (0-100); Basophils Percent Auto 1.1 % (0-2); Eosinophils Absolute Auto 300 /uL (0-450); Eosinophils Percent Auto 3.2 % (2-4); Hematocrit 47.1 % (41-53); Hemoglobin 16.1 g/dL (13.5-17.5); Lymphocytes Absolute Auto 2000 /uL (1100-4500); Lymphocytes Percent Auto 25.5 % (25-40); Mean Corpuscular HGB Conc 34.2 % (30-36); Mean Corpuscular Hemoglobin 30.3 PG (26-34); Mean Corpuscular Volume 88.6 fL (80-100); Monocytes Absolute Auto 700 /uL (0-900); Monocytes Percent Auto 8.9 % (3-14); Neutrophils Absolute Auto 4900 /uL (1500-7000); Neutrophils Percent Auto 61.3 % (50-75); Platelet Count 327 X10^3/uL (150-400); Red Blood Cell Count 5.32 X10^6/uL (4.5-5.9); Red Cell Distribution Width 14.1 % (11.6-14.8)
--- NOTE | 2020-07-14 03:55 | ED.MALEGU ---
HPI - Male Genitourinary General Chief complaint: Urogenital-Male Stated complaint: acute side pain right Time Seen by Provider: 07/14/20 03:32 Source: patient Mode of arrival: Ambulatory Limitations: no limitations History of Present Illness HPI Narrative: Patient is a 5-year-old male with history of a kidney stone presenting for the 2nd time in 2 days for ongoing of left flank pain. He said this has really been going on for the last 2 weeks off and on since March. He had a CT 06/10/2020 which confirmed a 2 mm stone in the right inferior pole of the kidney but nothing in the left. 2 days ago he was even received Toradol along with a prescription. He says the pain is out of control now. Pain is nonradiating to his leg or groin. He has not had any nausea or vomiting. Onset (ago): week(s) Duration: intermittent Location: left flank Related Data Previous Rx's Medication Instructions Recorded aspirin 81 mg chewable tablet 81 mg PO DAILY #30 tab 05/15/18 lisinopril 20 1 tab PO DAILY #90 tab 11/06/19 mg-hydrochlorothiazide 25 mg tablet potassium citrate 10 mEq (1,080 10 meq PO QDAY #90 tab 11/06/19 mg) tablet,extended release tamsulosin 0.4 mg capsule 0.4 mg PO DAILY #90 cap 06/20/20 ketorolac 10 mg PO Q6H PRN #14 tab 07/13/20 cephalexin [Keflex] 500 mg PO TID #21 cap 07/14/20 hydrocodone-acetaminophen 1 tab PO Q6H PRN #10 tab 07/14/20 Allergies Allergy/AdvReac Type Severity Reaction Status Date / Time No Known Drug Allergies Allergy Verified 06/20/20 15:58 Review of Systems Review of Systems Narrative: GENERAL: Denies chills, fatigue, malaise, fever, sweats, travel HEENT: Denies sinus pain, ear pain, sore throat, difficulty swallowing, neck pain RESPIRATORY: Denies dyspnea, cough, wheezing, hemoptysis, sputum. CARDIOVASCULAR: Denies chest pain, palpitations, orthopnea, edema GASTROINTESTINAL: Denies nausea, vomiting, abdominal pain, diarrhea, constipation, melena. : See HPI MUSCULOSKELETAL: Denies weakness, joint pain, or bony pain SKIN: No rash, no erythema, no pruritus NEUROLOGIC: Denies weakness, dizziness, headache, numbness, change in speech, confusion PSYCHIATRIC: No concerning psychosocial issues. 12 point review of systems is negative except for those stated above and HPI Patient History Medical History ADD (attention deficit disorder) Carpal tunnel syndrome (2012) Colon polyps (04/2017) Diverticulosis of colon (04/2017) External hemorrhoids without complication Hypertension (1989) Kidney stones (2000) Low testosterone (2011) Obesity (BMI 35.0-39.9 without comorbidity) Osteoarthritis Pre-diabetes Surgical History History of carpal tunnel repair (11/2013) History of hip surgery (~11/2016) History of lithotripsy Hx of colonoscopy with polypectomy (04/2017) Family History Brother Age: 72 Hypertension Brother Age: 69 Hypertension Father Colon cancer Heart disease Grandfather Cancer Mother Cancer Social History Smoking Status: Never smoker alcohol intake: never substance use type: does not use eating out: 1-3 times/week Type(s) of exercise: advised to exercise at least 150 min/week (moderate intensity aerobic) and advised to perform resistance training at least 2x/week Smoking Status: Never smoker Substance Use Type: marijuana Exam Initial Vital Signs Initial Vital Signs: Vital Signs Temperature 97.6 F 07/14/20 03:33 Pulse Rate 86 07/14/20 03:33 Respiratory Rate 20 07/14/20 03:33 Blood Pressure 139/83 07/14/20 03:33 Pulse Oximetry 97 07/14/20 03:33 GENERAL: Pacing room appears extremely uncomfortable and in no acute distress. HEENT: Head atraumatic,EOMI, pupils reactive, face symmetric, moist mucous membranes CARDIOVASCULAR: Regular rate and rhythm without murmurs, rubs or gallops. RESPIRATORY: Breath sounds equal bilaterally, no wheezes rales or rhonchi. ABDOMEN: Soft, nontender. Normoactive bowel sounds all 4 quadrants. No guarding or rebound. : Left CVA tenderness EXTREMITIES: Normal range of motion, no clubbing or edema. Neurovascularly intact NEUROLOGICAL: Alert and oriented x4.Normal gait and speech.] SKIN: Warm, dry, no laceration, no petechiae, no rashes or lesions. Course Orders Ordered: ED Orders 07/14/20 03:42 CT kidney ureter bladder (KUB) Stat 07/14/20 03:45 Complete Blood Count AUTO DIFF Stat Comprehensive Metabolic Panel Stat Lipase Stat Discontinued Medications Cefazolin Sodium (Cephalexin 250 Mg Prepack) 1 bottle MISC SEEINSTR ONE Stop: 07/14/20 05:11 Last Admin: 07/14/20 05:48 Dose: Not Given Documented by: FRANCESCO Hydromorphone HCl (Hydromorphone 1 Mg Inj) 1 mg IM NOW ONE Stop: 07/14/20 05:47 Last Admin: 07/14/20 06:04 Dose: 1 mg Documented by: FRANCESCO Sodium Chloride (Normal Saline 0.9%) 1,000 mls @ 150 mls/hr IV CONT LOVE Last Infusion: 07/14/20 05:47 Dose: 0 mls/hr Documented by: Admin: 07/14/20 03:49 Dose: 150 mls/hr Documented by: FRANCESCO Ketorolac Tromethamine (Ketorolac 60 Mg/2 Ml Vial) 15 mg IV NOW ONE Stop: 07/14/20 03:44 Last Admin: 07/14/20 03:49 Dose: 15 mg Documented by: FRANCESCO Ondansetron HCl (Ondansetron 4 Mg Odt Prepack) 1 bottle MISC SEEINSTR ONE Stop: 07/14/20 05:47 Last Admin: 07/14/20 06:04 Dose: 1 bottle Documented by: FRANCESCO Ondansetron HCl (Ondansetron 4 Mg Odt) 4 mg SL NOW ONE Stop: 07/14/20 05:47 Last Admin: 07/14/20 06:04 Dose: 4 mg Documented by: FRANCESCO Trimethoprim/Sulfamethoxazole (Trimeth/Sulfa 160/800 Prepack) 1 bottle MISC SEEINSTR ONE Stop: 07/14/20 05:01 Vital Signs Vital signs: Vital Signs - 8 hr 07/14/20 03:33 07/14/20 06:04 Temperature 97.6 F Pulse Rate 86 81 Respiratory Rate 20 18 Blood Pressure 139/83 116/83 Pulse Oximetry 97 97 MDM - Male Genitourinary Lab Data Attestation: I reviewed the patient's lab results. Result diagrams: 07/14/20 03:45 07/14/20 03:45 Labs: Lab Results 07/14/20 07/14/20 Range/Units 03:45 03:45 WBC 8.0 (4.5-11.0) X10^3/uL RBC 5.32 (4.5-5.9) X10^6/uL Hgb 16.1 (13.5-17.5) g/dL Hct 47.1 (41-53) % MCV 88.6 (80-100) fL MCH 30.3 (26-34) PG MCHC 34.2 (30-36) % RDW 14.1 (11.6-14.8) % Plt Count 327 (150-400) X10^3/uL Neut % (Auto) 61.3 (50-75) % Lymph % (Auto) 25.5 (25-40) % [place] % (Auto) 8.9 (3-14) % Eos % (Auto) 3.2 (2-4) % Baso % (Auto) 1.1 (0-2) % Neut # (Auto) 4900 (1626-7317) /uL Lymph # (Auto) 2000 (4364-6274) /uL [place] # (Auto) 700 (0-900) /uL Eos # (Auto) 300 (0-450) /uL Baso # (Auto) 100 (0-100) /uL Sodium 133 L (137-145) mmol/L Potassium 4.5 (3.4-5.1) mmol/L Chloride 101 (98-107) mmol/L Carbon Dioxide 26 (22-32) mmol/L BUN 24 H (9-20) mg/dL Creatinine 1.28 H (0.66-1.25) mg/dL Estimated GFR 57.3 L (>60) mL/min BUN/Creatinine Ratio 18.8 (6-22) Glucose 121 H (80-110) mg/dL Calcium 9.5 (8.4-10.2) mg/dL Total Bilirubin 1.6 H (0.2-1.3) mg/dL AST 30 (17-59) IU/L ALT 28 (<50) IU/L Alkaline Phosphatase 50 (38-126) U/L Total Protein 8.1 (6.3-8.2) g/dL Albumin 4.5 (3.5-5.0) g/dL Globulin 3.6 (1.7-4.1) g/dL Albumin/Globulin Ratio 1.3 (1.0-2.8) Lipase 59 (23-300) U/L Urine Dip Bedside Urine Glucose Negative Bedside Urine Bilirubin - Negative Bedside Urine Ketone - Negative Urine Specific [place] 1.025 Bedside Urine Occult Blood - Negative Bedside Urine pH 5.5 Bedside Urine Protein - Negative Bedside Urine Urobilinogen - Negative Bedside Urine Nitrite - Negative Bedside Urine Leukocytes - Negative Esterase Imaging Data CT scan - abdomen/pelvis: Radiologist's Impression: Preliminary report: Nonobstructing right lower pole intrarenal calculus. Mild bilateral perinephric inflammatory changes which is nonspecific finding. Mild left. A ureteral inflammatory changes possibly related to infection or recently passed left stone. No evidence of colitis diverticulitis bowel obstruction or acute appendicitis. MDM Narrative Medical decision making narrative: The patient is having significant pain pacing the room appears to clinically be a kidney stone. A previous CT did not show stone on the left side only the right. Pain improved with Toradol and Dilaudid. CT again today does not show any kidney stone on the left possible pyelonephritis or recently passed stone. However patient has been having ongoing symptoms for number of weeks. He has no leukocytosis or fever his urinalysis is clean questionable pyelonephritis. However nothing else seems to be working will try him on Keflex. Patient was discharged and then immediately upon being discharged she had severe pain and nausea. He was given Zofran and Dilaudid which seemed to help. Discharge Plan Departure Patient Disposition: Home Clinical Impression: Urinary tract infection Qualifiers: Urinary tract infection type: acute pyelonephritis Qualified Code(s): N10 - Acute pyelonephritis Instructions: DI for Kidney Infection Activity Restrictions/Additional Instructions: *You have been diagnosed with presumed kidney infection *What to do: At this time you see their likely passed a kidney stone or you possibly have an infection. It is strongly recommended that he follow-up with urology *Continue to take medications as directed--> SENT TO [facility] [place] Keflex 500 mg 3 times a day for 7 days [place] 1 tablet every 6 hours if needed for severe pain *Follow up with your primary care provider in 2-3 days *Return to ER if you should have increasing pain fever, or any new, worsening or concerning symptoms CONTROLLED SUBSTANCE DISCHARGE (Narcotoic/benzodiazepine/Flexeril/Phenergan) 1. You have been prescribed narcotic medications, it does have acetaminophen/Tylenol/paracetamol in it so do not take extra Tylenol or Tylenol containing products TRAMADOL DOES NOT CONTAIN TYLENOL 2. Please understand that we cannot provide further refills of narcotics, benzodiazepines or controlled substances through the ED and her pain management will need to be through your provider. 3. While on these medications you cannot drive or operate heavy machinery. 4. You cannot sign legal documents or perform any duties such as this. 5. As long as you're taking opiate pain medications he should also be taking a stool softener such as Colace, Dulcolax, MiraLAX or prune juice, to help avoid constipation. Prescriptions: New cephalexin [Keflex] 500 mg capsule 500 mg PO TID Qty: 21 RF: 0 hydrocodone-acetaminophen 5-325 mg tablet 1 tab PO Q6H PRN (Reason: pain) Qty: 10 RF: 0 No Action aspirin 81 mg tablet,chewable 81 mg PO DAILY Qty: 30 RF: 0 lisinopril-hydrochlorothiazide 20-25 mg tablet 1 tab PO DAILY Qty: 90 RF: 3 potassium citrate [Urocit-K 10] 10 mEq (1,080 mg) tablet extended release 10 meq PO QDAY Qty: 90 RF: 3 tamsulosin 0.4 mg capsule 0.4 mg PO DAILY Qty: 90 RF: 1 ketorolac 10 mg tablet 10 mg PO Q6H PRN (Reason: pain) Qty: 14 RF: 0 Referrals: Esteban Newsome MD [Primary Care Provider] -
[2020-07-14 04:01] LABS: Alanine Aminotransferase 28 IU/L (<50); Albumin 4.5 g/dL (3.5-5.0); Albumin Globulin Ratio 1.3 (1.0-2.8); Alkaline Phosphatase 50 U/L (38-126); Aspartate Aminotransferase 30 IU/L (17-59); BUN Creatinine Ratio 18.8 (6-22); Bilirubin Total 1.6 mg/dL (0.2-1.3); Blood Urea Nitrogen 24 mg/dL (9-20); Calcium 9.5 mg/dL (8.4-10.2); Carbon Dioxide 26 mmol/L (22-32); Chloride 101 mmol/L (98-107); Estimated Glomerular Filt Rate 57.3 mL/min (>60); Globulin 3.6 g/dL (1.7-4.1); Glucose 121 mg/dL (80-110); HEMOLYSIS 31 (0-50); Lipase 59 U/L (23-300); Potassium 4.5 mmol/L (3.4-5.1); Sodium 133 mmol/L (137-145); Total Protein 8.1 g/dL (6.3-8.2)
[2020-07-14 06:04] VITALS: BP 116/83; PULSE 81; RESP 18; O2SAT 97
[2020-07-14] MEDS: HYDROMORPHONE 1 MG INJ IM (06:04)
[2020-07-14] MEDS: ONDANSETRON 4 MG ODT SL (06:04)
[2020-07-14] MEDS: ONDANSETRON 4 MG ODT PREPACK 1 BOTTLE MISC (06:04)
== END 2020-07-14 06:06 | disposition home or self-care (01) ==
PROVIDERS: Emergency Provider Emergency Medicine; PCP Student in an Organized Health Care Education/Training Program
DX: N10 Acute pyelonephritis (principal); N39.0 Urinary tract infection, site not specified; R11.0 Nausea; Z87.442 Personal history of urinary calculi; R10.9 Unspecified abdominal pain
CPT/HCPCS: 36415; 74176; 80048; 80053; 81003; 83690; 85025; 87086; 96361; 96372; 96374; 96375; 99281; 99284; STOP; J1170; J1885; J2405

== ENCOUNTER 2020-07-14 11:35 | Emergency (ER) | payer OTHER, SELFPAY ==
--- NOTE | 2020-07-14 11:54 | ED_ITS ---
HPI - Recheck/Abnormal Lab/Rx General Chief Complaint: Recheck/Abnormal Lab/Rx Stated Complaint: Kidney stones of some sort,inflammation Time Seen by Provider: 07/14/20 11:45 Source: patient Mode of arrival: Ambulatory Limitations: no limitations History of Present Illness HPI narrative: 59-year-old male who was seen in the emergency department just several hours ago for left-sided flank pain. He has a history of kidney stones. During that evaluation he was evaluated the CT scan and labs. Review that CT scan shows inflammation of the left-sided ureter which they thought was consistent with a recently passed stone. He had a punctate stone in his right kidney but no other signs of infection. No other intra-abdominal pathology. Patient was discharged home. His pain has continued. The family called mul tiple times prior to returning to the emergency department asking for referral to see Urology. Your unfortunately unable to help them as I was not the provider who saw the patient last evening. The return to the emergency department stating that they needed to see a urologist stating that their [facility] provider's office told them to come to the emergency department because we has a department could refer them to a urologist. Patient states he has been taking the medicines that he was prescribed. He also describes some constipation which he normally gets with opioid use. Denies any fevers. Has had some nausea. Related Data Previous Rx's Medication Instructions Recorded aspirin 81 mg chewable tablet 81 mg PO DAILY #30 tab 05/15/18 lisinopril 20 1 tab PO DAILY #90 tab 11/06/19 mg-hydrochlorothiazide 25 mg tablet potassium citrate 10 mEq (1,080 10 meq PO QDAY #90 tab 11/06/19 mg) tablet,extended release tamsulosin 0.4 mg capsule 0.4 mg PO DAILY #90 cap 06/20/20 ketorolac 10 mg PO Q6H PRN #14 tab 07/13/20 cephalexin [Keflex] 500 mg PO TID #21 cap 07/14/20 cyclobenzaprine 10 mg PO TID PRN #12 tab 07/14/20 hydrocodone-acetaminophen 1 tab PO Q6H PRN #10 tab 07/14/20 hydrocodone-acetaminophen [Wales] 1 tab PO Q4-6H PRN #10 tab 07/14/20 ondansetron HCl [Zofran] 4 mg PO Q6H PRN #14 tab 07/14/20 Allergies Allergy/AdvReac Type Severity Reaction Status Date / Time No Known Drug Allergies Allergy Verified 07/14/20 11:47 Review of Systems Constitutional Constitutional: Denies chills, Denies fever(s) and Denies headache(s) ENT Ears, Nose, Mouth, and Throat: Denies headache(s) Cardiovascular Cardiovascular: Denies chest pain and Denies dyspnea Respiratory Respiratory: Denies dyspnea Gastrointestinal Gastrointestinal: Reports constipation, Reports nausea and Denies vomiting Comments: Left-sided flank pain Genitourinary Genitourinary: Denies dysuria and Reports urinary hesitancy Genitourinary: Denies dysuria and Reports urinary hesitancy Musculoskeletal Musculoskeletal: Denies arthralgias and Denies myalgias Integumentary/Breasts Skin/Breast: Denies lesions and Denies rash Neurologic Neurologic: Denies behavioral changes and Denies headache(s) Psychiatric Psychiatric: Denies behavioral changes Hematologic/Lymphatic Hematologic/Lymphatic: Denies easy bleeding and Denies easy bruising Allergic/Immunologic Allergic/Immunologic: Denies urticaria Patient History Medical History ADD (attention deficit disorder) Carpal tunnel syndrome (2012) Colon polyps (04/2017) Diverticulosis of colon (04/2017) External hemorrhoids without complication Hypertension (1989) Kidney stones (2000) Low testosterone (2011) Obesity (BMI 35.0-39.9 without comorbidity) Osteoarthritis Pre-diabetes Surgical History History of carpal tunnel repair (11/2013) History of hip surgery (~11/2016) History of lithotripsy Hx of colonoscopy with polypectomy (04/2017) Family History Brother Age: 72 Hypertension Brother Age: 69 Hypertension Father Colon cancer Heart disease Grandfather Cancer Mother Cancer Social History Smoking Status: Never smoker alcohol intake: never substance use type: does not use eating out: 1-3 times/week Type(s) of exercise: advised to exercise at least 150 min/week (moderate intensity aerobic) and advised to perform resistance training at least 2x/week Smoking Status: Never smoker Substance Use Type: marijuana Exam Initial Vital Signs Initial Vital Signs: Vital Signs Pulse Rate 59 L 07/14/20 11:55 Blood Pressure 143/83 H 07/14/20 11:55 Pulse Oximetry 98 07/14/20 11:55 Const General: cooperative and well developed Limitations: mental status not altered HENMT Head: normal to inspection and normocephalic Resp Effort & Inspection: normal respiratory effort Auscultation: clear to auscultation bilaterally Cardio Rate: regular rate Rhythm: regular rhythm GI Inspection: non-distended Palpation: soft, No firm and No tender Back/Spine/Pelvis Back: CVA tenderness left Skin Lesions: no lesions Neuro General: patient alert and patient awake Cognition: normal cognition Speech: speech normal Extrem General: normal to inspection and capillary refill normal Psych Appearance: grossly normal and well kempt Scores GCS Agness coma scale eye opening: Spontaneous Agness coma scale verbal response: Orientated Agness coma scale motor response: Obey commands Sarah coma scale total score: 15 Course Orders Ordered: ED Orders 07/14/20 11:58 Basic Metabolic Panel Stat Complete Blood Count AUTO DIFF Stat 07/14/20 14:56 Urine Culture Stat Discontinued Medications Hydrocodone Bitart/Acetaminophen (Hydrocodone/Acet 5/325 Tablet) 1 tab PO NOW ONE Stop: 07/14/20 14:27 Last Admin: 07/14/20 14:48 Dose: 1 tab Documented by: DARBY Hydromorphone HCl (Hydromorphone 1 Mg Inj) 1 mg IV NOW ONE Stop: 07/14/20 12:43 Last Admin: 07/14/20 12:51 Dose: 1 mg Documented by: DARBY Ondansetron HCl (Ondansetron 4 Mg/2 Ml Inj) 4 mg IV NOW ONE Stop: 07/14/20 12:43 Last Admin: 07/14/20 12:51 Dose: 4 mg Documented by: DARBY Vital Signs Vital signs: Vital Signs - 8 hr 07/14/20 11:55 07/14/20 12:00 07/14/20 12:48 Pulse Rate 59 L 62 60 Respiratory Rate Blood Pressure 143/83 H 129/87 122/82 Pulse Oximetry 98 98 98 07/14/20 14:57 Pulse Rate 60 Respiratory Rate 14 Blood Pressure 132/88 Pulse Oximetry 98 MDM - Recheck/Abnormal Lab/Rx Medical Records Attestation: I reviewed the patient's medical records. Lab Data Attestation: I reviewed the patient's lab results. Result diagrams: 07/14/20 11:58 07/14/20 11:58 Labs: Lab Results 07/14/20 07/14/20 Range/Units 11:58 11:58 WBC 7.8 (4.5-11.0) X10^3/uL RBC 5.11 (4.5-5.9) X10^6/uL Hgb 15.4 (13.5-17.5) g/dL Hct 45.5 (41-53) % MCV 89.1 (80-100) fL MCH 30.2 (26-34) PG MCHC 33.9 (30-36) % RDW 14.1 (11.6-14.8) % Plt Count 287 (150-400) X10^3/uL Neut % (Auto) 73.2 (50-75) % Lymph % (Auto) 16.5 L (25-40) % Cache % (Auto) 7.7 (3-14) % Eos % (Auto) 1.9 L (2-4) % Baso % (Auto) 0.7 (0-2) % Neut # (Auto) 5700 (5466-9723) /uL Lymph # (Auto) 1300 (7959-5578) /uL Cache # (Auto) 600 (0-900) /uL Eos # (Auto) 100 (0-450) /uL Baso # (Auto) 100 (0-100) /uL Sodium 135 L (137-145) mmol/L Potassium 4.1 (3.4-5.1) mmol/L Chloride 101 (98-107) mmol/L Carbon Dioxide 27 (22-32) mmol/L BUN 24 H (9-20) mg/dL Creatinine 1.36 H (0.66-1.25) mg/dL Estimated GFR 53.5 L (>60) mL/min BUN/Creatinine Ratio 17.6 (6-22) Glucose 111 H (80-110) mg/dL Calcium 9.4 (8.4-10.2) mg/dL Urine Dip Bedside Urine Glucose Negative Bedside Urine Bilirubin - Negative Bedside Urine Ketone +/- 5 Urine Specific [place] 1.020 Bedside Urine Occult Blood - Negative Bedside Urine pH 6.0 Bedside Urine Protein - Negative Bedside Urine Urobilinogen - Negative Bedside Urine Nitrite - Negative Bedside Urine Leukocytes - Negative Esterase MDM Narrative Medical decision making narrative: Patient arrives today with continued pain that he was evaluated for last evening. I was able to review his labs at that time. His CT scan showed no acute intra-abdominal pathology. The inflammation around the left ureter was reported to be consistent with a recently passed stone. He does have a history of stones any thought that that was potentially was happening however he is continuing to have symptoms. Repeated his labs today does not show leukocytosis. His kidney function today is similar to yesterday. His urine has no blood and no signs of an infection. He does have some reproducible pain on had his left flank along the paraspinal muscles. His symptoms could potentially be muscular in origin. There are no skin changes consistent with zoster. Considered repeating a CT scan with contrast however given his symptoms today and lack of leukocytosis and unchanged labs I felt that the risks of getting the CT scan and the radiation outweigh any potential benefit. Had a long discussion with him and his . I offered to contact our urologist at the [facility] however I told them given his CT scan last evening and his labs today that the be unlikely that they would accept any transfers there is no emergent urologic condition occurring. We will hold on consultation after this discussion. Patient's stated that she went back to his primary doctor's office and was told that the patient could be admitted for pain control. I did discuss the case with Dr. anderson who was on-call for Internal Medicine who declined to admit the patient for pain control. I agree with this refusal. I do not feel that there is an emergent urological condition going on. A urine culture from today's urine was pending. I feel we should hold on further workup for now however did told the patient that if his symptoms continue to worsen or if he develops a rash or develops fevers or other urinary symptoms or if his pain moves that he should return to the emergency department. Given the fact this somewhat reproducible with palpation will start the patient on muscle relaxers however he was told that of these do not improve his symptoms after 1 or 2 does the should stop taking them. Will also have him stop taking the antibiotics as his urine today is negative. We will contact him after the urine culture results and if is positive to restart the antibioti cs. I also contacted the Urology Department here at the hospital and they have information of the patient stated that he can call and make an outpatient follow-up if you would like. This information was passed on to the patient and his . They both expressed understanding and agreement. Discharge Plan Departure Patient Disposition: Home Clinical Impression: Acute flank pain Instructions: DI for Flank Pain Activity Restrictions/Additional Instructions: Recommend that you contact your insurance company and also the urology department here at [facility] for a follow-up. Also recommend you contact your primary provider. I do recommend that you stop the Keflex/Cephalexin. A urine culture was pending at the time your discharging we will contact you if you need to restart this medication. Also recommend that you stop the Ultram/tramadol and start taking the new medications as directed. Prescriptions: New ondansetron HCl [Zofran] 4 mg tablet 4 mg PO Q6H PRN (Reason: nausea and vomiting) Qty: 14 RF: 0 hydrocodone-acetaminophen [Wales] 5-325 mg tablet 1 tab PO Q4-6H PRN (Reason: pain) Qty: 10 RF: 0 cyclobenzaprine 10 mg tablet 10 mg PO TID PRN (Reason: muscle spasm) Qty: 12 RF: 0 No Action aspirin 81 mg tablet,chewable 81 mg PO DAILY Qty: 30 RF: 0 lisinopril-hydrochlorothiazide 20-25 mg tablet 1 tab PO DAILY Qty: 90 RF: 3 potassium citrate [Urocit-K 10] 10 mEq (1,080 mg) tablet extended release 10 meq PO QDAY Qty: 90 RF: 3 tamsulosin 0.4 mg capsule 0.4 mg PO DAILY Qty: 90 RF: 1 cephalexin [Keflex] 500 mg capsule 500 mg PO TID Qty: 21 RF: 0 hydrocodone-acetaminophen 5-325 mg tablet 1 tab PO Q6H PRN (Reason: pain) Qty: 10 RF: 0 ketorolac 10 mg tablet 10 mg PO Q6H PRN (Reason: pain) Qty: 14 RF: 0 Referrals: Esteban Newsome MD [Primary Care Provider] -
[2020-07-14 11:55] VITALS: BP 143/83; PULSE 59; O2SAT 98
[2020-07-14 12:00] VITALS: BP 129/87; PULSE 62; O2SAT 98
[2020-07-14 12:05] LABS: Add Manual Diff / Slide Review NO; Basophils Absolute Auto 100 /uL (0-100); Basophils Percent Auto 0.7 % (0-2); Eosinophils Absolute Auto 100 /uL (0-450); Eosinophils Percent Auto 1.9 % (2-4); Hematocrit 45.5 % (41-53); Hemoglobin 15.4 g/dL (13.5-17.5); Lymphocytes Absolute Auto 1300 /uL (1100-4500); Lymphocytes Percent Auto 16.5 % (25-40); Mean Corpuscular HGB Conc 33.9 % (30-36); Mean Corpuscular Hemoglobin 30.2 PG (26-34); Mean Corpuscular Volume 89.1 fL (80-100); Monocytes Absolute Auto 600 /uL (0-900); Monocytes Percent Auto 7.7 % (3-14); Neutrophils Absolute Auto 5700 /uL (1500-7000); Neutrophils Percent Auto 73.2 % (50-75); Platelet Count 287 X10^3/uL (150-400); Red Blood Cell Count 5.11 X10^6/uL (4.5-5.9); Red Cell Distribution Width 14.1 % (11.6-14.8); White Blood Cell Count 7.8 X10^3/uL (4.5-11.0)
[2020-07-14 12:14] LABS: BUN Creatinine Ratio 17.6 (6-22); Blood Urea Nitrogen 24 mg/dL (9-20); Calcium 9.4 mg/dL (8.4-10.2); Carbon Dioxide 27 mmol/L (22-32); Chloride 101 mmol/L (98-107); Estimated Glomerular Filt Rate 53.5 mL/min (>60); Glucose 111 mg/dL (80-110); HEMOLYSIS < 15 (0-50); Potassium 4.1 mmol/L (3.4-5.1); Sodium 135 mmol/L (137-145)
[2020-07-14 12:48] VITALS: BP 122/82; PULSE 60; O2SAT 98
[2020-07-14] MEDS: HYDROMORPHONE 1 MG INJ IV (12:51)
[2020-07-14] MEDS: ONDANSETRON 4 MG/2 ML INJ IV (12:51)
[2020-07-14] MEDS: HYDROCODONE/ACET 5/325 TABLET 1 TAB PO (14:48)
[2020-07-14 14:57] VITALS: BP 132/88; PULSE 60; RESP 14; O2SAT 98
== END 2020-07-14 14:59 | disposition home or self-care (01) ==
PROVIDERS: Emergency Provider Emergency Medicine; PCP Student in an Organized Health Care Education/Training Program
DX: R10.9 Unspecified abdominal pain (principal); Z87.442 Personal history of urinary calculi; R11.0 Nausea
CPT/HCPCS: 36415; 80048; 81003; 85025; 87086; J1170; J2405

== ENCOUNTER 2020-07-16 08:52 | Emergency (ER) | payer OTHER, SELFPAY ==
[2020-07-16 09:00] VITALS: BP 134/89; PULSE 80; RESP 18; TEMP 36.5; O2SAT 100; BMI 38.0
--- NOTE | 2020-07-16 09:06 | ED.GENADULT ---
HPI - General Adult General Chief complaint: Abdominal Pain Stated complaint: buldging out the side pretty bad Time Seen by Provider: 07/16/20 08:54 Source: patient Mode of arrival: Ambulatory Limitations: no limitations History of Present Illness HPI narrative: Patient is a 59-year-old male here for the 3rd time in the past week for issues with his left flank. He was initially seen and diagnosed with what they thought was a recently passed left-sided kidney stone. He had a CT scan at that time. Had a slight elevation in his creatinine. He returned several hours later where I evaluated him for very similar symptoms. He had no change in his laboratory results. Had no skin changes of her concerning for zoster. I sent him home with a prescription for muscle relaxers as I thought that it was potentially a muscle spasm issue. Since that time he has been taking his medicines and he feels that the muscle relaxers have been helping his symptoms. He returns to the emergency department today because he woke up this morning with a bulge in his left flank. He denies any rashes. No nausea vomiting. Urinating fine. Did have a bowel movement this morning. States that the bulge is not painful. He still thinks that the muscle relaxers are helping his back/flank pain. Reports no new trauma. Related Data Previous Rx's Medication Instructions Recorded aspirin 81 mg chewable tablet 81 mg PO DAILY #30 tab 05/15/18 lisinopril 20 1 tab PO DAILY #90 tab 11/06/19 mg-hydrochlorothiazide 25 mg tablet potassium citrate 10 mEq (1,080 10 meq PO QDAY #90 tab 11/06/19 mg) tablet,extended release tamsulosin 0.4 mg capsule 0.4 mg PO DAILY #90 cap 06/20/20 ketorolac 10 mg PO Q6H PRN #14 tab 07/13/20 cephalexin [Keflex] 500 mg PO TID #21 cap 07/14/20 cyclobenzaprine 10 mg PO TID PRN #12 tab 07/14/20 hydrocodone-acetaminophen 1 tab PO Q6H PRN #10 tab 07/14/20 hydrocodone-acetaminophen [[place]] 1 tab PO Q4-6H PRN #10 tab 07/14/20 ondansetron HCl [Zofran] 4 mg PO Q6H PRN #14 tab 11/23/20 cyclobenzaprine 10 mg PO TID PRN #21 tab 07/16/20 gabapentin 300 mg PO BID #30 cap 07/16/20 hydrocodone-acetaminophen [[place]] 1 tab PO Q6H PRN #14 tab 07/16/20 Allergies Allergy/AdvReac Type Severity Reaction Status Date / Time No Known Drug Allergies Allergy Verified 07/14/20 11:47 Review of Systems Constitutional Constitutional: Denies fatigue, Denies fever(s) and Denies headache(s) ENT Ears, Nose, Mouth, and Throat: Denies headache(s) Cardiovascular Cardiovascular: Denies chest pain and Denies dyspnea Respiratory Respiratory: Denies dyspnea Gastrointestinal Gastrointestinal: Denies abdominal pain, Denies change in bowel habits, Denies nausea and Denies vomiting Comments: Bulge left flank Genitourinary Genitourinary: Denies dysuria Genitourinary: Denies dysuria Musculoskeletal Comments: Left lower thoracic/lumbar back pain Integumentary/Breasts Skin/Breast: Denies lesions and Denies rash Neurologic Neurologic: Denies behavioral changes and Denies headache(s) Psychiatric Psychiatric: Denies behavioral changes Endocrine Endocrine: Denies fatigue Hematologic/Lymphatic Hematologic/Lymphatic: Denies easy bleeding and Denies easy bruising Allergic/Immunologic Allergic/Immunologic: Denies urticaria Patient History Medical History ADD (attention deficit disorder) Carpal tunnel syndrome (2012) Colon polyps (04/2017) Diverticulosis of colon (04/2017) External hemorrhoids without complication Hypertension (1989) Kidney stones (2000) Low testosterone (2011) Obesity (BMI 35.0-39.9 without comorbidity) Osteoarthritis Pre-diabetes Surgical History History of carpal tunnel repair (11/2013) History of hip surgery (~11/2016) History of lithotripsy Hx of colonoscopy with polypectomy (04/2017) Family History Brother Age: 72 Hypertension Brother Age: 69 Hypertension Father Colon cancer Heart disease Grandfather Cancer Mother Cancer Social History Smoking Status: Never smoker alcohol intake: never substance use type: does not use eating out: 1-3 times/week Type(s) of exercise: advised to exercise at least 150 min/week (moderate intensity aerobic) and advised to perform resistance training at least 2x/week Smoking Status: Never smoker Substance Use Type: marijuana Exam Initial Vital Signs Initial Vital Signs: Vital Signs Temperature 97.7 F 07/16/20 09:00 Pulse Rate 80 07/16/20 09:00 Respiratory Rate 18 07/16/20 09:00 Blood Pressure 134/89 07/16/20 09:00 Pulse Oximetry 100 07/16/20 09:00 Const General: cooperative, healthy appearing and comfortable Limitations: mental status not altered HENMT Head: normal to inspection and normocephalic Resp Effort & Inspection: normal respiratory effort Cardio Rate: regular rate GI Inspection: non-distended Palpation: soft, No firm and No tender Back/Spine/Pelvis Other: Patient does have a 8 cm x 5 cm bulge on his left flank about the level of the kidney. It is soft. Does disappear when he lays down on his right side. Skin Lesions: no lesions Rashes: no rashes Neuro General: patient alert and patient awake Cognition: normal cognition Speech: speech normal Extrem General: normal to inspection and capillary refill normal Psych Appearance: grossly normal and well kempt Course Orders Ordered: ED Orders 07/16/20 09:30 Complete Blood Count AUTO DIFF Stat Comprehensive Metabolic Panel Stat Lipase Stat 07/16/20 10:13 CT abdomen pelvis w con Stat 07/16/20 10:55 US abdomen limited Stat 07/16/20 11:22 US renal complete Stat Discontinued Medications Hydrocodone Bitart/Acetaminophen (Hydrocodone/Acet 5/325 Tablet) 1 tab PO NOW ONE Stop: 07/16/20 14:39 Last Admin: 07/16/20 14:49 Dose: 1 tab Documented by: ELIZABETH Cyclobenzaprine HCl (Cyclobenzaprine 10 Mg Tablet) 10 mg PO NOW ONE Stop: 07/16/20 09:52 Last Admin: 07/16/20 09:56 Dose: 10 mg Documented by: ELIZABETH Sodium Chloride (Normal Saline 0.9%) 1,000 mls @ 1,000 mls/hr IV BOLUS ONE Stop: 07/16/20 10:05 Last Infusion: 07/16/20 12:01 Dose: 0 mls/hr Documented by: Admin: 07/16/20 09:41 Dose: 1,000 mls/hr Documented by: GERI Ketorolac Tromethamine (Ketorolac 60 Mg/2 Ml Vial) 30 mg IV NOW ONE Stop: 07/16/20 12:39 Last Admin: 07/16/20 13:06 Dose: 30 mg Documented by: GERI Vital Signs Vital signs: Vital Signs - 8 hr 07/16/20 09:00 07/16/20 14:16 Temperature 97.7 F Pulse Rate 80 78 Respiratory Rate 18 21 Blood Pressure 134/89 105/57 L Pulse Oximetry 100 98 Medical Decision Making Medical Records Medical records reviewed: Yes I reviewed the patient's medical records. Lab Data Lab results reviewed: Yes I reviewed the patient's lab results. Result diagrams: 07/16/20 09:30 07/16/20 09:30 Labs: Lab Results 07/16/20 07/16/20 Range/Units 09:30 09:30 WBC 6.2 (4.5-11.0) X10^3/uL RBC 5.13 (4.5-5.9) X10^6/uL Hgb 15.5 (13.5-17.5) g/dL Hct 45.9 (41-53) % MCV 89.5 (80-100) fL MCH 30.3 (26-34) PG MCHC 33.8 (30-36) % RDW 13.8 (11.6-14.8) % Plt Count 280 (150-400) X10^3/uL Neut % (Auto) 65.5 (50-75) % Lymph % (Auto) 20.8 L (25-40) % [place] % (Auto) 8.3 (3-14) % Eos % (Auto) 4.2 H (2-4) % Baso % (Auto) 1.2 (0-2) % Neut # (Auto) 4000 (4864-2411) /uL Lymph # (Auto) 1300 (5886-3744) /uL [place] # (Auto) 500 (0-900) /uL Eos # (Auto) 300 (0-450) /uL Baso # (Auto) 100 (0-100) /uL Sodium 136 L (137-145) mmol/L Potassium 4.1 (3.4-5.1) mmol/L Chloride 104 (98-107) mmol/L Carbon Dioxide 25 (22-32) mmol/L BUN 25 H (9-20) mg/dL Creatinine 1.31 H (0.66-1.25) mg/dL Estimated GFR 55.8 L (>60) mL/min BUN/Creatinine Ratio 19.1 (6-22) Glucose 106 (80-110) mg/dL Calcium 9.3 (8.4-10.2) mg/dL Total Bilirubin 1.5 H (0.2-1.3) mg/dL AST 27 (17-59) IU/L ALT 23 (<50) IU/L Alkaline Phosphatase 48 (38-126) U/L Total Protein 7.4 (6.3-8.2) g/dL Albumin 4.4 (3.5-5.0) g/dL Globulin 3.0 (1.7-4.1) g/dL Albumin/Globulin Ratio 1.5 (1.0-2.8) Lipase 47 (23-300) U/L Imaging Data CT scan - abdomen/pelvis: Radiologist's Impression: [address] [id number] Scan ReportSigned Patient: Tru Boykin [facility]#: [id number]: 1960Acct:[id number]/Sex: 59 / MDate of Service: 07/16/20Loc: EDAccession Number: [id number] Procedure: CT abdomen pelvis w con Ordering Provider: Carlos Cleveland D.O. PROCEDURE: CT ABDOMEN PELVIS W CON INDICATIONS: Left-sided flank bulging TECHNIQUE: After the administration of intravenous contrast, 5 mm thick sections acquired from the diaphragm to the symphysis. 5 mm coronal and sagittal reformats were acquired. For radiation dose reduction, the following was used: automated exposure control, adjustment of mA and/or kV according to patient size. COMPARISON: [facility], CT, CT KIDNEY URETER BLADDER (KUB), 07/14/2020, 3:54. FINDINGS: Image quality: Excellent. ABDOMEN: Lung bases: Lung bases are clear. Heart size is normal. Solid organs: Liver is normal in size and enhancement. 5 mm hypodensity in the left hepatic lobe appears stable when compared to prior studies. Gallbladder appears normal. Biliary system is non dilated. Pancreas enhances normally. Spleen is normal in size and enhancement. No adrenal nodules. Kidneys demonstrate normal size and enhancement, without hydronephrosis. A punctate nonobstructing calculus is again seen in the inferior pole of the right kidney. Bilateral parapelvic cysts are noted. Chronic bilateral perinephric stranding appears stable. Perirenal fat appears mildly prominent but symmetric. No ureteral calculus is seen. The previously seen minimal distal left periureteral fat stranding has slightly decreased when compared to the prior exam. Peritoneum and bowel: A few scattered diverticula are seen in the colon. The appendix appears normal. There are no signs of bowel obstruction. No free fluid or air. Nodes and vessels: No retroperitoneal or mesenteric adenopathy by size criteria. Aorta and inferior vena cava are normal in size. Miscellaneous: A small fat containing umbilical hernia is present. PELVIS: Genitourinary: Bladder wall thickness is normal. Miscellaneous: No inguinal hernias or adenopathy. Bones: Bilateral hip arthroplasties are noted with associated metallic streak artifact. Mild multilevel degenerative changes are seen in the included spine. No suspicious bony lesions. No vertebral body compression fractures. IMPRESSION: 1. No acute abnormality is seen. No significant interval change when compared to the CT from 07/14/2020. 2. Punctate nonobstructing right renal calculus appears stable. 3. Minimal distal left periureteral fat stranding has mildly decreased when compared to the prior study. 4. Mild colonic diverticulosis without signs of acute diverticulitis. Dictated by: Lew Eastman M.D. on 07/16/2020 at 10:25 Approved by: Lew Eastman M.D. on 07/16/2020 at 10:38 Renal ultrasound: Radiologist's Impression: [address] [id number] ReportSigned Patient: Tru Boykin [facility]#: [id number]: 1960Acct:[id number]/Sex: 59 / MDate of Service: 07/16/20Loc: EDAccession Number: [id number] Procedure: US renal complete Ordering Provider: Carlos Cleveland D.O. PROCEDURE: US RENAL COMPLETE INDICATIONS: L kidney pain TECHNIQUE: Real-time scanning was performed of the kidneys and bladder, with image documentation. COMPARISON: [facility], , US ABDOMEN LIMITED, 07/16/2020, 11:38. [facility], CT, CT ABDOMEN PELVIS W CON, 07/16/2020, 10:08. [facility], CT, CT KIDNEY URETER BLADDER (KUB), 07/14/2020, 3:54. FINDINGS: Kidneys: Kidneys are normal in size. Right kidney measures 14.2 cm long; left kidney measures 14.3 cm long. Right renal cortical thickness is 1.3 cm; left renal cortical thickness is 1.3 cm. Renal cortical echotexture is normal. No hydronephrosis. No suspicious solid mass lesions. At the inferior pole of the right kidney, there is a 1.7 cm cyst. The patient's known right lower pole kidney stone is not seen on the current study. No left-sided stones are seen. Echogenic foci are seen involving the left kidney, which are regarded to be artifactual. Bladder: Bladder demonstrate no intraluminal masses or stones. On pre-void images, both ureteral jets are noted with color Doppler interrogation. (Of note, ureteral jets may not be detectable in up to 25% of cases due to insufficient differences in specific gravity between ureteral and bladder urine). Miscellaneous: No free pelvic fluid. IMPRESSION: No left-sided hydronephrosis can be seen. No ultrasound imaging explanation is found for the patient's presenting history of left-sided kidney pain. Dictated by: Anthony Alarcon M.D. on 07/16/2020 at 11:17 Approved by: Anthony Alarcon M.D. on 07/16/2020 at 11:21 Limited abdominal ultrasound: Radiologist's Impression: No abnormality identified by ultrasound. Depending on the clinical status follow-up contrast in hands MR scanning may become necessary MDM Narrative Medical decision making narrative: Patient looks better today than when I evaluated him a couple days ago. He does state that the Flexeril that I discharge him home with seems to be helping his symptoms somewhat although it does not last. He woke up this morning with what appears to be a bulge/mass in his anterior left flank. I agree and was easily seen when the patient is standing and does seem to resolve when he lays down. His CT scan today shows no acute pathology. Does appear that the stranding around the ureters which was seen during his 1st visit here several days ago is improving. His blood work today is unchanged. His renal ultrasound is normal. A ultrasound of the area of the ball shows no acute pathology. I am unsure exactly what is causing his left flank pain and what is causing the bulge in his left abdomen. Does not appear to be a kidney stone. Does not appear to be any mass or hernia. Does not appear to be an infectious etiology. There was no broken ribs. Is not enlarged spleen. Is not hydronephrosis. Is not a bowel obstruction. The fact that he is getting some relief from the Flexeril makes me think that his initial back pain is musculoskeletal in etiology however on exam does not appear to have a specific muscle spasm. Also considered other etiologies such as zoster that has not presented itself as a rash. He has no testicular pain. I feel that there is little more that we could do for him in the emergency department other than pain control. I was able to contact his primary doctor's office and got an appointment scheduled with him at the beginning of next week with a provider who had an opening. Will have him continue with the Flexeril and I refilled this. Will have him switch from the ketorolac to an [id number] nonsteroidal anti-inflammatory. Will place him on a H2 yara. He was given the name of famotidine that he can purchased [id number]. Also start him on gabapentin. Informed him that this medicine could potentially need to be increased however the next several days will be a trial to see if his symptoms improve with this. Also send home with [place] for breakthrough pain. Family and his understand the lack of a definitive etiology of his symptoms. They expressed understanding and agreement with this plan. Discharge Plan Departure Patient Disposition: Home Clinical Impression: Flank pain Instructions: DI for Flank Pain Activity Restrictions/Additional Instructions: I was able to schedule you an appointment on Tuesday July 21, [address] Bejarano at 930 in the morning. Please check in 15 minutes prior to this.. This will be at the [facility]. I recommend that you stop taking the ketorolac and start on a anti-inflammatories such as Motrin/ibuprofen or Naprosyn. This can be purchased [id number]. Also recommend that you start on a heartburn/stomach ulcer medication such as Pepcid/famotidine. This can also be purchased [id number]. Your last dose of cyclobenzaprine was given here in the emergency department at 1000. Return to the emergency department for any new or worsening symptoms Prescriptions: New cyclobenzaprine 10 mg tablet 10 mg PO TID PRN (Reason: muscle spasm) Qty: 21 RF: 0 hydrocodone-acetaminophen [[place]] 5-325 mg tablet 1 tab PO Q6H PRN (Reason: pain) Qty: 14 RF: 0 gabapentin 300 mg capsule 300 mg PO BID Qty: 30 RF: 0 No Action aspirin 81 mg tablet,chewable 81 mg PO DAILY Qty: 30 RF: 0 lisinopril-hydrochlorothiazide 20-25 mg tablet 1 tab PO DAILY Qty: 90 RF: 3 potassium citrate [Urocit-K 10] 10 mEq (1,080 mg) tablet extended release 10 meq PO QDAY Qty: 90 RF: 3 tamsulosin 0.4 mg capsule 0.4 mg PO DAILY Qty: 90 RF: 1 cephalexin [Keflex] 500 mg capsule 500 mg PO TID Qty: 21 RF: 0 hydrocodone-acetaminophen 5-325 mg tablet 1 tab PO Q6H PRN (Reason: pain) Qty: 10 RF: 0 ondansetron HCl [Zofran] 4 mg tablet 4 mg PO Q6H PRN (Reason: nausea and vomiting) Qty: 14 RF: 0 hydrocodone-acetaminophen [[place]] 5-325 mg tablet 1 tab PO Q4-6H PRN (Reason: pain) Qty: 10 RF: 0 cyclobenzaprine 10 mg tablet 10 mg PO TID PRN (Reason: muscle spasm) Qty: 12 RF: 0 ketorolac 10 mg tablet 10 mg PO Q6H PRN (Reason: pain) Qty: 14 RF: 0 Referrals: Esteban Newsome MD [Primary Care Provider] -
[2020-07-16 09:40] LABS: Add Manual Diff / Slide Review NO; Basophils Absolute Auto 100 /uL (0-100); Basophils Percent Auto 1.2 % (0-2); Eosinophils Absolute Auto 300 /uL (0-450); Eosinophils Percent Auto 4.2 % (2-4); Hematocrit 45.9 % (41-53); Hemoglobin 15.5 g/dL (13.5-17.5); Lymphocytes Absolute Auto 1300 /uL (1100-4500); Lymphocytes Percent Auto 20.8 % (25-40); Mean Corpuscular HGB Conc 33.8 % (30-36); Mean Corpuscular Hemoglobin 30.3 PG (26-34); Mean Corpuscular Volume 89.5 fL (80-100); Monocytes Absolute Auto 500 /uL (0-900); Monocytes Percent Auto 8.3 % (3-14); Neutrophils Absolute Auto 4000 /uL (1500-7000); Neutrophils Percent Auto 65.5 % (50-75); Platelet Count 280 X10^3/uL (150-400); Red Blood Cell Count 5.13 X10^6/uL (4.5-5.9); Red Cell Distribution Width 13.8 % (11.6-14.8); White Blood Cell Count 6.2 X10^3/uL (4.5-11.0)
[2020-07-16] MEDS: SODIUM CHLORIDE 0.9% 1,000 ML 1000 ML IV (09:41)
[2020-07-16 09:51] LABS: Alanine Aminotransferase 23 IU/L (<50); Albumin 4.4 g/dL (3.5-5.0); Albumin Globulin Ratio 1.5 (1.0-2.8); Alkaline Phosphatase 48 U/L (38-126); Aspartate Aminotransferase 27 IU/L (17-59); BUN Creatinine Ratio 19.1 (6-22); Bilirubin Total 1.5 mg/dL (0.2-1.3); Blood Urea Nitrogen 25 mg/dL (9-20); Calcium 9.3 mg/dL (8.4-10.2); Carbon Dioxide 25 mmol/L (22-32); Chloride 104 mmol/L (98-107); Estimated Glomerular Filt Rate 55.8 mL/min (>60); Glucose 106 mg/dL (80-110); HEMOLYSIS < 15 (0-50); Lipase 47 U/L (23-300); Potassium 4.1 mmol/L (3.4-5.1); Sodium 136 mmol/L (137-145); Total Protein 7.4 g/dL (6.3-8.2)
[2020-07-16] MEDS: CYCLOBENZAPRINE 10 MG TABLET PO (09:56)
--- NOTE | 2020-07-16 10:13 | DI.CT.S_ITS ---
PROCEDURE: CT ABDOMEN PELVIS W CON INDICATIONS: Left-sided flank bulging TECHNIQUE: After the administration of intravenous contrast, 5 mm thick sections acquired from the diaphragm to the symphysis. 5 mm coronal and sagittal reformats were acquired. For radiation dose reduction, the following was used: automated exposure control, adjustment of mA and/or kV according to patient size. COMPARISON: [facility], CT, CT KIDNEY URETER BLADDER (KUB), 07/14/2020, 3:54. FINDINGS: Image quality: Excellent. ABDOMEN: Lung bases: Lung bases are clear. Heart size is normal. Solid organs: Liver is normal in size and enhancement. 5 mm hypodensity in the left hepatic lobe appears stable when compared to prior studies. Gallbladder appears normal. Biliary system is non dilated. Pancreas enhances normally. Spleen is normal in size and enhancement. No adrenal nodules. Kidneys demonstrate normal size and enhancement, without hydronephrosis. A punctate nonobstructing calculus is again seen in the inferior pole of the right kidney. Bilateral parapelvic cysts are noted. Chronic bilateral perinephric stranding appears stable. Perirenal fat appears mildly prominent but symmetric. No ureteral calculus is seen. The previously seen minimal distal left periureteral fat stranding has slightly decreased when compared to the prior exam. Peritoneum and bowel: A few scattered diverticula are seen in the colon. The appendix appears normal. There are no signs of bowel obstruction. No free fluid or air. Nodes and vessels: No retroperitoneal or mesenteric adenopathy by size criteria. Aorta and inferior vena cava are normal in size. Miscellaneous: A small fat containing umbilical hernia is present. PELVIS: Genitourinary: Bladder wall thickness is normal. Miscellaneous: No inguinal hernias or adenopathy. Bones: Bilateral hip arthroplasties are noted with associated metallic streak artifact. Mild multilevel degenerative changes are seen in the included spine. No suspicious bony lesions. No vertebral body compression fractures. IMPRESSION: 1. No acute abnormality is seen. No significant interval change when compared to the CT from 07/14/2020. 2. Punctate nonobstructing right renal calculus appears stable. 3. Minimal distal left periureteral fat stranding has mildly decreased when compared to the prior study. 4. Mild colonic diverticulosis without signs of acute diverticulitis. Dictated by: Lew Eastman M.D. on 07/16/2020 at 10:25 Approved by: Lew Eastman M.D. on 07/16/2020 at 10:38
--- NOTE | 2020-07-16 10:55 | DI.US.S_ITS ---
PROCEDURE: US ABDOMEN LIMITED INDICATIONS: Left-sided soft tissue mass lower abdominal body wall TECHNIQUE: Real-time focused scanning was performed of the abdomen, with image documentation. COMPARISON: None. FINDINGS: No lipoma or herniation found, source of current symptoms is not seen. IMPRESSION: No abnormality identified by ultrasound. Depending on the clinical status follow-up by contrast-enhanced MR scanning may become necessary. Dictated by: Michael Machado M.D. on 07/16/2020 at 12:03 Approved by: Michael Machado M.D. on 07/16/2020 at 12:04
--- NOTE | 2020-07-16 11:22 | DI.US.S_ITS ---
PROCEDURE: US RENAL COMPLETE INDICATIONS: L kidney pain TECHNIQUE: Real-time scanning was performed of the kidneys and bladder, with image documentation. COMPARISON: [facility], US, US ABDOMEN LIMITED, 07/16/2020, 11:38. [facility], CT, CT ABDOMEN PELVIS W CON, 07/16/2020, 10:08. [facility], CT, CT KIDNEY URETER BLADDER (KUB), 07/14/2020, 3:54. FINDINGS: Kidneys: Kidneys are normal in size. Right kidney measures 14.2 cm long; left kidney measures 14.3 cm long. Right renal cortical thickness is 1.3 cm; left renal cortical thickness is 1.3 cm. Renal cortical echotexture is normal. No hydronephrosis. No suspicious solid mass lesions. At the inferior pole of the right kidney, there is a 1.7 cm cyst. The patient's known right lower pole kidney stone is not seen on the current study. No left-sided stones are seen. Echogenic foci are seen involving the left kidney, which are regarded to be artifactual. Bladder: Bladder demonstrate no intraluminal masses or stones. On pre-void images, both ureteral jets are noted with color Doppler interrogation. (Of note, ureteral jets may not be detectable in up to 25% of cases due to insufficient differences in specific gravity between ureteral and bladder urine). Miscellaneous: No free pelvic fluid. IMPRESSION: No left-sided hydronephrosis can be seen. No ultrasound imaging explanation is found for the patient's presenting history of left-sided kidney pain. Dictated by: Anthony Alarcon M.D. on 07/16/2020 at 11:17 Approved by: Anthony Alarcon M.D. on 07/16/2020 at 11:21
[2020-07-16] MEDS: KETOROLAC 60 MG/2 ML VIAL 30 MG IV (13:06)
[2020-07-16 14:16] VITALS: BP 105/57; PULSE 78; RESP 21; O2SAT 98
[2020-07-16] MEDS: HYDROCODONE/ACET 5/325 TABLET 1 TAB PO (14:49)
== END 2020-07-16 14:58 | disposition home or self-care (01) ==
PROVIDERS: Emergency Provider Emergency Medicine; PCP Student in an Organized Health Care Education/Training Program
DX: R10.9 Unspecified abdominal pain (principal); R19.09 Other intra-abdominal and pelvic swelling, mass and lump
CPT/HCPCS: 36415; 74177; 76705; 76770; 80053; 83690; 85025; 96361; 96374; 99284; J1885; Q9967

== ENCOUNTER → 2020-08-05 09:51 | Outpatient (CLI) | payer OTHER, SELFPAY ==
--- NOTE | 2020-08-05 11:53 | DIET.PN ---
Diabetes: Healthy Eating 2 Intervention: Fats effects on glucose, weight, heart disease, cholesterol Sat Vs Unsat Protein- animal and plant based options Low, med, high fat meats Sugar substitutes Sodium Health claims Grocery shopping guidelines Eating away from home Alcohol Sick day guidelines Ketone Testing
== END ==
PROVIDERS: PCP Student in an Organized Health Care Education/Training Program; Referring Provider Student in an Organized Health Care Education/Training Program; Visit Provider Student in an Organized Health Care Education/Training Program
DX: E11.9 Type 2 diabetes mellitus without complications (principal); Z71.3 Dietary counseling and surveillance
CPT/HCPCS: G0109

== ENCOUNTER → 2020-09-02 09:52 | Outpatient (CLI) | payer OTHER, SELFPAY ==
--- NOTE | 2020-09-02 11:17 | DIET.PN ---
Diabetes: Healthy Eating 1 Intervention: ? Discussed pathophysiology of diabetes and impact of nutrition/diet on blood sugar control.? Discussed fed versus non-fed state.?? ? Reviewed importance of Balance, Variety, and Moderation. ? Discussed the effect of carbohydrates/protein/fat on blood sugar control.? ? Stressed importance of consistent carbohydrate intake at each meal and provided instructions for recommended servings/portions of carbohydrates/protein per meal. Provided educational material. ? Reviewed carbohydrate counting and measuring carbohydrate content via serving sizes and reading nutrition labels.? Provided handouts.?? ? Discussed the difference between simple versus complex carbohydrates and the effect of fiber on blood sugar control.? Discussed various methods to increase fiber content in diet. ? Discussed the plate method for creating more carbohydrate conscious balanced meals. ? Stressed importance of meal timing and not going >4-5 hours between meals. Encouraged adding protein to evening snack to support glucose control overnight. ? Discussed importance of making dietary habits part of lifestyle change.
== END ==
PROVIDERS: PCP Student in an Organized Health Care Education/Training Program; Referring Provider Student in an Organized Health Care Education/Training Program; Visit Provider Student in an Organized Health Care Education/Training Program
DX: E11.9 Type 2 diabetes mellitus without complications (principal); Z71.3 Dietary counseling and surveillance
CPT/HCPCS: G0109

== ENCOUNTER → 2020-09-10 10:57 | Outpatient (CLI) | payer OTHER, SELFPAY ==
--- NOTE | 2020-09-10 12:15 | DIET.PN ---
DIABETES Nutrition Initial Assessment:? ASSESS:?? Mr. Boykin is a 59 yom??referred for type 2 diabetes seen as part of DSME program. He has made several changes to his dietary habits including reduced portion sizes, reduced sodium and sugar substitute intake, increased vegetables and water. He has lost 12 lbs since our visit in Jun. He has not been able to be active due to severe neck, flank, and knee pain. He recently thought he had another kidney stone which was found to be shingles. He is content with steady weight loss. ??? LABS: Per pt report:? A1c: 6.4 ? MEDS:?? na ? DIET: Per 24-hour recall:? B: oatmeal, strawb, milk, stevia Eating Out: 1-3x/wk Changes in Appetite: no change; eating less Nutrition Supplements: ? Weight: 268lb Height: 72in BMI: ? 36.3 ? Exercise:? active at work NUTRITION DX 1. Altered Nutrition related labs related to impaired glucose metabolism, lack of previous exposure to accurate nutrition information as evidenced by pt report, dx of diabetes, previous diet high in refined carbohydrates.? INTERVENTION(s): 1. Reviewed pathophysiology of diabetes and impact of nutrition/diet on blood sugar control.? Discussed fed versus non-fed state.?? 2. Discussed the effect of carbohydrates/protein/fat on blood sugar control.? Stressed importance of consistent carbohydrate intake at each meal and provided instructions for recommended servings/portions of carbohydrates/protein per meal. Provided pt with educational material. 3. Reviewed carbohydrate counting and measuring carbohydrate content via serving sizes and reading nutrition labels.? Provided handouts.?? 4. Discussed the difference between simple versus complex carbohydrates and the effect of fiber on blood sugar control.? Discussed various methods to increase fiber content in diet. 5. Stressed importance of meal timing and not going >4-5 hours between meals. Encouraged adding protein to evening snack to support glucose control overnight. Patient agreeable. 6. Discussed healthy weight loss goals of 1-2lbs per week through diet and exercise.? Pt agreeable to walking at least 30 minutes daily. 7. Recommend monitoring fasting and alternating 2 hr PP mealtime glucose. MONITOR/EVALUATE: Anticipate good compliance.? Nutrition follow-up scheduled for 1 month.
[2020-09-10 12:16] VITALS: BMI 36.4
== END ==
PROVIDERS: PCP Student in an Organized Health Care Education/Training Program; Referring Provider Student in an Organized Health Care Education/Training Program; Visit Provider Student in an Organized Health Care Education/Training Program
DX: E11.9 Type 2 diabetes mellitus without complications (principal)
CPT/HCPCS: G0109

== ENCOUNTER → 2020-11-14 09:50 | Outpatient (CLI) | payer OTHER, SELFPAY ==
--- NOTE | 2020-11-14 09:51 | DI.RAD.S_ITS ---
PROCEDURE: XR KUB INDICATIONS: Kidney stone TECHNIQUE: One view of the abdomen acquired. COMPARISON: [facility], US, US ABDOMEN LIMITED, 07/16/2020, 11:38. [facility], US, US RENAL COMPLETE, 07/16/2020, 11:30. [facility], CT, CT ABDOMEN PELVIS W CON, 07/16/2020, 10:08. [facility], CT, CT KIDNEY URETER BLADDER (KUB), 07/14/2020, 3:54. [facility], CR, XR KUB, 07/13/2020, 6:14. FINDINGS: Surgical changes and devices: Bilateral hip arthroplasties are present. Bowel: Bowel gas pattern is normal. Soft tissues: No suspicious abdominal calcifications. Visualized solid organ contours appear normal in size. Bones: No suspicious bony lesions. IMPRESSION: No visualized calcification overlying the renal shadows or expected course of the ureters. Dictated by: Gisselle Henley M.D. on 11/14/2020 at 10:24 Approved by: Gisselle Henley M.D. on 11/14/2020 at 10:25
[2020-11-14 10:36] LABS: Calcium 9.7 mg/dL (8.4-10.2); Uric Acid 7.9 mg/dL (3.5-8.5)
[2020-11-15 06:37] LABS: Parathyroid Hormone Int 44 pg/mL (15-65)
== END ==
PROVIDERS: PCP Student in an Organized Health Care Education/Training Program; Referring Provider Specialist; Visit Provider Specialist
DX: N20.0 Calculus of kidney (principal)
CPT/HCPCS: 36415; 74018; 82310; 83970; 84550

== ENCOUNTER → 2021-07-06 10:09 | Outpatient (CLI) | payer OTHER, SELFPAY ==
--- NOTE | 2021-07-06 10:11 | DI.RAD.S_ITS ---
PROCEDURE: XR KUB INDICATIONS: Kidney stone TECHNIQUE: One view of the abdomen acquired. COMPARISON: [facility], CT, CT ABDOMEN PELVIS W CON, 07/16/2020, 10:08. [facility], CR, XR KUB, 11/14/2020, 9:51. [facility], CR, XR KUB, 07/13/2020, 6:14. FINDINGS: Surgical changes and devices: None. Bowel: Bowel gas pattern is normal. Soft tissues: No suspicious abdominal calcifications. Visualized solid organ contours appear normal in size. Bones: No suspicious bony lesions. Bilateral hip arthroplasties. IMPRESSION: No kidney stone identified. Dictated by: Gonzalez Laird M.D. on 07/06/2021 at 11:43 Approved by: Gonzalez Laird M.D. on 07/06/2021 at 11:46
== END ==
PROVIDERS: PCP Student in an Organized Health Care Education/Training Program; Referring Provider Specialist; Visit Provider Specialist
DX: N20.1 Calculus of ureter (principal)
CPT/HCPCS: 74018

== ENCOUNTER → 2021-09-16 10:53 | Outpatient (CLI) | payer OTHER, SELFPAY ==
[2021-09-16 12:22] LABS: COVID19 -Nasal RAPID Negative (Negative)
== END ==
PROVIDERS: PCP Student in an Organized Health Care Education/Training Program; Referring Provider Physician Assistant; Visit Provider Physician Assistant
DX: Z20.822 Contact with and (suspected) exposure to COVID-19 (principal)
CPT/HCPCS: 87635

== ENCOUNTER → 2021-10-12 10:16 | Outpatient (CLI) | payer OTHER, SELFPAY ==
[2021-10-12 12:09] LABS: Hemoglobin A1C% w Est Avg Glu 6.8 % (4.0-6.0)
[2021-10-12 12:11] LABS: BUN Creatinine Ratio 19.3 (6-22); Blood Urea Nitrogen 28 mg/dL (9-20); Calcium 9.6 mg/dL (8.4-10.2); Carbon Dioxide 26 mmol/L (22-32); Chloride 105 mmol/L (98-107); Cholesterol 197 mg/dL (140-199); Estimated Glomerular Filt Rate 49.5 mL/min (>60); Glucose 113 mg/dL (80-110); HDL Cholesterol 36 mg/dL (40-60); HEMOLYSIS < 15 (0-50); LDL Cholesterol Calculated 111 mg/dL (<100); Potassium 4.5 mmol/L (3.4-5.1); Sodium 137 mmol/L (137-145); Triglycerides 251 mg/dL (35-150)
[2021-10-12 12:40] LABS: Prostate Specific Antigen Scrn 3.52 ng/mL (0.1-4.0)
== END ==
PROVIDERS: PCP Student in an Organized Health Care Education/Training Program; Referring Provider Student in an Organized Health Care Education/Training Program; Visit Provider Student in an Organized Health Care Education/Training Program
DX: I10 Essential (primary) hypertension (principal); Z87.442 Personal history of urinary calculi; E11.9 Type 2 diabetes mellitus without complications; Z13.220 Encounter for screening for lipoid disorders; Z12.5 Encounter for screening for malignant neoplasm of prostate
CPT/HCPCS: 36415; 80048; 80061; 83036; G0103

== ENCOUNTER → 2021-11-02 11:35 | Outpatient (CLI) | payer OTHER, SELFPAY ==
[2021-11-02 13:15] LABS: Appearance Urine UA CLEAR; Bilirubin Urine UA NEGATIVE (NEGATIVE); Color Urine UA YELLOW; Glucose Urine UA NEGATIVE (Negative); Ketones Urine UA NEGATIVE (NEGATIVE); Leukocyte Esterase Urine UA NEGATIVE (NEGATIVE); Nitrite Urine UA NEGATIVE (Negative); Occult Blood Urine UA TRACE-LYSED (Negative); Protein Urine UA NEGATIVE (Negative); Specific Gravity Urine UA 1.025 (1.000-1.035); Urobilinogen Urine UA 0.2 E.U./dL (0.2)
[2021-11-02 13:16] LABS: BUN Creatinine Ratio 21.8 (6-22); Blood Urea Nitrogen 31 mg/dL (9-20); Estimated Glomerular Filt Rate 50.7 mL/min (>60)
[2021-11-02 13:27] LABS: Bacteria Urine None Seen; Culture Indicated Urine Cult Not Indicated; RBC Urine None Seen (0-5/HPF); Urine Comments Microscopic Normal; WBC Urine None Seen (0-5/HPF)
[2021-11-02 19:33] LABS: Microalbumin Urine Random 8.1 mg/dL (0-1.6)
[2021-11-02 19:45] LABS: Creatinine Urine Random 153.7 mg/dL; Microalbumi Creatinin Ratio Ur 52.7 ug/mg CR (<30)
== END ==
PROVIDERS: PCP Student in an Organized Health Care Education/Training Program; Referring Provider Student in an Organized Health Care Education/Training Program; Visit Provider Student in an Organized Health Care Education/Training Program
DX: N17.9 Acute kidney failure, unspecified (principal)
CPT/HCPCS: 36415; 81001; 82043; 82565; 82570; 84520

== ENCOUNTER → 2022-01-20 08:10 | Outpatient (CLI) | payer OTHER, SELFPAY ==
[2022-01-20 08:49] LABS: Hemoglobin A1C% w Est Avg Glu 6.5 % (4.0-6.0)
[2022-01-20 08:57] LABS: Cholesterol 135 mg/dL (140-199); HDL Cholesterol 33 mg/dL (40-60); LDL Cholesterol Calculated 83 mg/dL (<100); Triglycerides 96 mg/dL (35-150)
[2022-01-20 09:24] LABS: Prostate Specific Antigen Scrn 3.91 ng/mL (0.1-4.0)
== END ==
PROVIDERS: PCP Student in an Organized Health Care Education/Training Program; Referring Provider Student in an Organized Health Care Education/Training Program; Visit Provider Student in an Organized Health Care Education/Training Program
DX: E11.69 Type 2 diabetes mellitus with other specified complication (principal); E78.5 Hyperlipidemia, unspecified; Z12.5 Encounter for screening for malignant neoplasm of prostate
CPT/HCPCS: 36415; 80061; 83036; G0103

== ENCOUNTER → 2022-02-01 11:43 | Outpatient (CLI) | payer OTHER, SELFPAY ==
[2022-02-01 12:51] LABS: Creatinine Urine Random 73.1 mg/dL; Protein (Total) Urine Random 6 mg/dL (0-12); Protein Creatinine Ratio Urine 0.08 GRAM/24H
[2022-02-01 12:58] LABS: Hematocrit 43.5 % (41-53); Hemoglobin 14.9 g/dL (13.5-17.5)
[2022-02-01 13:15] LABS: Blood Urea Nitrogen 30 mg/dL (9-20); Calcium 9.9 mg/dL (8.4-10.2); Carbon Dioxide 25 mmol/L (22-32); Chloride 103 mmol/L (98-107); Estimated Glomerular Filt Rate > 60 mL/min (>60); Glucose 90 mg/dL (80-110); HEMOLYSIS < 15 (0-50); Potassium 4.3 mmol/L (3.4-5.1); Sodium 137 mmol/L (137-145)
== END ==
PROVIDERS: PCP Student in an Organized Health Care Education/Training Program; Referring Provider Student in an Organized Health Care Education/Training Program; Visit Provider Student in an Organized Health Care Education/Training Program
DX: N05.9 Unspecified nephritic syndrome with unspecified morphologic changes (principal); D64.9 Anemia, unspecified; R80.9 Proteinuria, unspecified
CPT/HCPCS: 36415; 80048; 82570; 84156; 85014; 85018

== ENCOUNTER → 2022-04-22 08:47 | Outpatient (CLI) | payer OTHER, SELFPAY ==
[2022-04-22 10:43] LABS: Hematocrit 42.8 % (41-53); Hemoglobin 14.5 g/dL (13.5-17.5)
[2022-04-22 11:24] LABS: BUN Creatinine Ratio 23.8 (6-22); Blood Urea Nitrogen 34 mg/dL (9-20); Calcium 9.5 mg/dL (8.4-10.2); Carbon Dioxide 28 mmol/L (22-32); Chloride 101 mmol/L (98-107); Estimated Glomerular Filt Rate 55 mL/min (>60); Glucose 82 mg/dL (80-110); HEMOLYSIS < 15 (0-50); Phosphorous 2.4 mg/dL (2.3-3.7); Potassium 4.6 mmol/L (3.4-5.1); Sodium 139 mmol/L (137-145); Uric Acid 8.4 mg/dL (3.5-8.5)
[2022-04-22 11:37] LABS: Appearance Urine UA CLEAR; Bilirubin Urine UA NEGATIVE (NEGATIVE); Color Urine UA YELLOW; Glucose Urine UA NEGATIVE (Negative); Ketones Urine UA NEGATIVE (NEGATIVE); Leukocyte Esterase Urine UA NEGATIVE (NEGATIVE); Nitrite Urine UA NEGATIVE (Negative); Occult Blood Urine UA NEGATIVE (Negative); Protein Urine UA NEGATIVE (Negative); Urobilinogen Urine UA 0.2 E.U./dL (0.2)
[2022-04-22 12:09] LABS: Bacteria Urine None Seen; Culture Indicated Urine Cult Not Indicated; RBC Urine None Seen (0-5/HPF); Urine Comments Microscopic Normal; WBC Urine None Seen (0-5/HPF)
[2022-04-23 05:47] LABS: Parathyroid Hormone Int 46 pg/mL (15-65)
== END ==
PROVIDERS: PCP Student in an Organized Health Care Education/Training Program; Referring Provider Student in an Organized Health Care Education/Training Program; Visit Provider Student in an Organized Health Care Education/Training Program
DX: N05.9 Unspecified nephritic syndrome with unspecified morphologic changes (principal); D64.9 Anemia, unspecified; E83.30 Disorder of phosphorus metabolism, unspecified; N25.81 Secondary hyperparathyroidism of renal origin; M10.00 Idiopathic gout, unspecified site; N30.00 Acute cystitis without hematuria
CPT/HCPCS: 36415; 80048; 81001; 83970; 84100; 84550; 85014; 85018

== ENCOUNTER → 2022-06-16 07:22 | Outpatient (CLI) | payer OTHER, SELFPAY ==
[2022-06-16 08:59] LABS: Prostate Specific Antigen 4.46 ng/mL (0.10-4.00)
== END ==
PROVIDERS: PCP Student in an Organized Health Care Education/Training Program; Referring Provider Specialist; Visit Provider Specialist
DX: R97.20 Elevated prostate specific antigen [PSA] (principal)
CPT/HCPCS: 36415; 84153

== ENCOUNTER → 2022-07-20 08:52 | Outpatient (CLI) | payer OTHER, SELFPAY ==
[2022-07-20 11:31] LABS: Hemoglobin A1C% w Est Avg Glu 6.3 % (4.0-6.0)
== END ==
PROVIDERS: PCP Student in an Organized Health Care Education/Training Program; Referring Provider Student in an Organized Health Care Education/Training Program; Visit Provider Student in an Organized Health Care Education/Training Program
DX: E11.9 Type 2 diabetes mellitus without complications (principal)
CPT/HCPCS: 36415; 83036

== ENCOUNTER → 2022-09-06 07:26 | Outpatient (CLI) | payer OTHER, SELFPAY ==
[2022-09-06 08:40] LABS: Hematocrit 46.5 % (41-53); Hemoglobin 15.7 g/dL (13.5-17.5)
[2022-09-06 08:52] LABS: BUN Creatinine Ratio 23.1 (6-22); Blood Urea Nitrogen 28 mg/dL (9-20); Calcium 9.3 mg/dL (8.4-10.2); Carbon Dioxide 26 mmol/L (22-32); Chloride 102 mmol/L (98-107); Estimated Glomerular Filt Rate > 60 mL/min (>60); Glucose 102 mg/dL (80-110); HEMOLYSIS < 15 (0-50); Potassium 4.2 mmol/L (3.4-5.1); Sodium 136 mmol/L (137-145); Uric Acid 7.6 mg/dL (3.5-8.5)
[2022-09-08 11:49] LABS: PSA Free % 35.2 % (.); PSA, Total 3.3 ng/mL (0.0-4.0); Parathyroid Hormone Int 59 pg/mL (15-65)
== END ==
PROVIDERS: Specialist; PCP Student in an Organized Health Care Education/Training Program; Referring Provider Student in an Organized Health Care Education/Training Program; Visit Provider Student in an Organized Health Care Education/Training Program
DX: N05.9 Unspecified nephritic syndrome with unspecified morphologic changes (principal); D64.9 Anemia, unspecified; M10.00 Idiopathic gout, unspecified site; N25.81 Secondary hyperparathyroidism of renal origin; R97.20 Elevated prostate specific antigen [PSA]
CPT/HCPCS: 36415; 80048; 83970; 84153; 84154; 84550; 85014; 85018

== ENCOUNTER → 2022-12-10 07:54 | Outpatient (CLI) | payer OTHER, SELFPAY ==
[2022-12-10 09:11] LABS: BUN Creatinine Ratio 19.5 (6-22); Blood Urea Nitrogen 25 mg/dL (9-20); Calcium 9.6 mg/dL (8.4-10.2); Carbon Dioxide 27 mmol/L (22-32); Chloride 101 mmol/L (98-107); Estimated Glomerular Filt Rate > 60 mL/min (>60); Glucose 108 mg/dL (80-110); HEMOLYSIS < 15 (0-50); Potassium 4.4 mmol/L (3.4-5.1); Sodium 137 mmol/L (137-145); Uric Acid 7.3 mg/dL (3.5-8.5)
[2022-12-14 12:08] LABS: Parathyroid Hormone Int 69 pg/mL (15-65)
[2022-12-14 12:08] LABS: PSA Free % 33.5 % (.); PSA, Total 3.1 ng/mL (0.0-4.0)
== END ==
PROVIDERS: Specialist; PCP Student in an Organized Health Care Education/Training Program; Referring Provider Student in an Organized Health Care Education/Training Program; Visit Provider Student in an Organized Health Care Education/Training Program
DX: N05.9 Unspecified nephritic syndrome with unspecified morphologic changes (principal); M10.00 Idiopathic gout, unspecified site; R80.9 Proteinuria, unspecified; N25.81 Secondary hyperparathyroidism of renal origin; R97.20 Elevated prostate specific antigen [PSA]
CPT/HCPCS: 36415; 80048; 83970; 84153; 84154; 84550

== ENCOUNTER → 2023-01-10 07:31 | Outpatient (CLI) | payer OTHER, SELFPAY ==
[2023-01-10 08:52] LABS: BUN Creatinine Ratio 23.7 (6-22); Blood Urea Nitrogen 31 mg/dL (9-20); Calcium 9.6 mg/dL (8.4-10.2); Carbon Dioxide 27 mmol/L (22-32); Chloride 98 mmol/L (98-107); Cholesterol 133 mg/dL (140-199); Estimated Glomerular Filt Rate > 60 mL/min (>60); Glucose 88 mg/dL (80-110); HDL Cholesterol 35 mg/dL (40-60); HEMOLYSIS < 15 (0-50); LDL Cholesterol Calculated 72 mg/dL (<100); Potassium 4.4 mmol/L (3.4-5.1); Sodium 134 mmol/L (137-145); Triglycerides 128 mg/dL (35-150)
[2023-01-11 03:10] LABS: x Labcorp Estim. Avg Glu (eAG) 140 mg/dL (.); x Labcorp Hemoglobin A1c 6.5 % (4.8-5.6)
== END ==
PROVIDERS: PCP Student in an Organized Health Care Education/Training Program; Referring Provider Student in an Organized Health Care Education/Training Program; Visit Provider Student in an Organized Health Care Education/Training Program
DX: E11.69 Type 2 diabetes mellitus with other specified complication (principal); E11.9 Type 2 diabetes mellitus without complications; E78.5 Hyperlipidemia, unspecified; I10 Essential (primary) hypertension
CPT/HCPCS: 36415; 80048; 80061; 83036

== ENCOUNTER → 2023-01-11 08:55 | Outpatient (CLI) | payer OTHER, SELFPAY ==
[2023-01-11 10:38] LABS: Creatinine Urine Random 56.6 mg/dL
[2023-01-11 10:42] LABS: Microalbumi Creatinin Ratio Ur 10.6 ug/mg CR (<30); Microalbumin Urine Random 0.6 mg/dL (0-1.6)
== END ==
PROVIDERS: PCP Student in an Organized Health Care Education/Training Program; Referring Provider Student in an Organized Health Care Education/Training Program; Visit Provider Student in an Organized Health Care Education/Training Program
DX: E11.69 Type 2 diabetes mellitus with other specified complication (principal); E11.9 Type 2 diabetes mellitus without complications; E78.5 Hyperlipidemia, unspecified; I10 Essential (primary) hypertension
CPT/HCPCS: 82043; 82570

== ENCOUNTER 2023-03-09 10:33 | Emergency (ER) | payer OTHER, SELFPAY ==
[2023-03-09] VITALS (15 sets, daily range): BP systolic 98–110; BP diastolic 53–64; PULSE 53–65; RESP 18; TEMP 35.7; O2SAT 93–100; BMI 36.6
--- NOTE | 2023-03-09 10:48 | DI.CT.S_ITS ---
PROCEDURE: CT KIDNEY URETER BLADDER (KUB) INDICATIONS: left flank pain, radiates to abd TECHNIQUE: Axial sections were acquired from the lung bases to the pubic symphysis. Coronal and sagittal reformats were performed. For radiation dose reduction, the following was used: automated exposure control, adjustment of mA and/or kV according to patient size. COMPARISON: [facility], CT, CT KIDNEY URETER BLADDER (KUB), 07/14/2020, 3:54. [facility], CT, CT ABDOMEN PELVIS W CON, 07/16/2020, 10:08. FINDINGS: Image quality: Portions of the lower pelvis are suboptimally evaluated secondary to metallic streak artifact from bilateral hip arthroplasty. Lung bases: Unremarkable. Heart: No significant findings. URINARY: Right Kidney: Renal atrophy is present. Parapelvic cysts. Punctate inferior pole calcification. No obstruction. Simple exophytic cyst. Right Ureter: No hydroureter. Left Kidney: Renal atrophy with parapelvic cysts. No stones. No obstruction. Left Ureter: No hydroureter. Bladder: Normal wall thickness. No stones. ABDOMEN: Liver: Unremarkable. Gallbladder: Unremarkable. Biliary ducts: Unremarkable. Pancreas: Unremarkable. Spleen: Unremarkable. Adrenal Glands: Unremarkable. Stomach and Bowel: Stomach, small bowel loops, and colon are nonobstructive. Colonic diverticula are present. No inflammatory change. Peritoneum: No abnormal intraperitoneal fluid. No free air. Ventral Wall: Fat containing ventral hernia. Abdominal Nodes: No enlarged retroperitoneal or mesenteric lymph nodes. Vessels: Aorta and inferior vena cava are normal in size. PELVIS: Pelvic Organs: Unremarkable. Pelvic Nodes: Unremarkable. Miscellaneous: Fat containing left inguinal hernia. Bones: Unremarkable. IMPRESSION: No acute intra-abdominal pelvic process. Diverticulosis. Dictated by: Gisselle Henley M.D. on 03/09/2023 at 13:16 Approved by: Gisselle Henley M.D. on 03/09/2023 at 13:19
[2023-03-09] MEDS: ONDANSETRON 4 MG/2 ML INJ IV (10:51)
[2023-03-09] MEDS: KETOROLAC 30 MG/ML VIAL 15 MG IV (10:51)
[2023-03-09 10:56] LABS: Add Manual Diff / Slide Review NO; Basophils Absolute Auto 100 /uL (0-100); Basophils Percent Auto 0.5 % (0-2); Eosinophils Absolute Auto 200 /uL (0-450); Eosinophils Percent Auto 1.8 % (2-4); Hematocrit 47.1 % (41-53); Hemoglobin 16.5 g/dL (13.5-17.5); Lymphocytes Absolute Auto 2000 /uL (1100-4500); Lymphocytes Percent Auto 14.9 % (25-40); Mean Corpuscular Hemoglobin 30.8 PG (26-34); Monocytes Absolute Auto 800 /uL (0-900); Monocytes Percent Auto 5.6 % (3-14); Neutrophils Absolute Auto 10500 /uL (1500-7000); Neutrophils Percent Auto 77.2 % (50-75); Platelet Count 359 X10^3/uL (150-400); Red Blood Cell Count 5.35 X10^6/uL (4.5-5.9); White Blood Cell Count 13.7 X10^3/uL (4.5-11.0)
[2023-03-09 11:12] LABS: Alanine Aminotransferase 27 IU/L (<50); Albumin 4.8 g/dL (3.5-5.0); Albumin Globulin Ratio 1.4 (1.0-2.8); Alkaline Phosphatase 85 U/L (38-126); Aspartate Aminotransferase 28 IU/L (17-59); BUN Creatinine Ratio 21.8 (6-22); Bilirubin Total 1.9 mg/dL (0.2-1.3); Blood Urea Nitrogen 29 mg/dL (9-20); Calcium 9.8 mg/dL (8.4-10.2); Carbon Dioxide 20 mmol/L (22-32); Chloride 97 mmol/L (98-107); Estimated Glomerular Filt Rate > 60 mL/min (>60); Globulin 3.5 g/dL (1.7-4.1); Glucose 176 mg/dL (80-110); HEMOLYSIS < 15 (0-50); Lipase 61 U/L (23-300); Potassium 4.2 mmol/L (3.4-5.1); Sodium 130 mmol/L (137-145); Total Protein 8.3 g/dL (6.3-8.2)
[2023-03-09] MEDS: HYDROMORPHONE 1 MG INJ IV (11:29)
--- NOTE | 2023-03-09 12:13 | ED.ABDPAIN ---
HPI - Abdominal Pain <Alfonso Bennett PA-C - Last Filed: 03/09/23 16:48> General Chief Complaint: Abdominal Pain Stated Complaint: Kidney pain Time Seen by Provider: 03/09/23 11:24 Source: patient Mode of arrival: Ambulatory History of Present Illness HPI narrative: This is a 62-year-old male presents emergency department Due to left-sided flank pain that radiates to the abdomen. Patient has been having pain for last 2 weeks. History of kidney stones and the patient states this feels somewhat similar.. Established urologist, Dr. Garza for which he saw yesterday and a CT scan was ordered. Patient denies any hematuria, penile discharge, testicular pain, nausea, vomiting, or any other concerning signs or symptoms. Related Data Home Medications Medication Instructions Recorded Confirmed aspirin 81 mg tablet,delayed 81 mg PO DAILY 09/29/20 03/08/23 release (Adult Aspirin Regimen) allopurinol 100 mg tablet 100 mg PO DAILY 10/06/22 03/08/23 Previous Rx's Medication Instructions Recorded lisinopril 20 See Rx Instructions .Route 10/12/22 mg-hydrochlorothiazide 25 mg tablet .COMPLEX #90 tabs potassium citrate 15 mEq (1,620 15 meq PO TID #270 tabs 12/23/22 mg) tablet,extended release atorvastatin 40 mg tablet (Lipitor) 40 mg PO DAILY cholesterol #90 tabs 01/18/23 semaglutide 0.25 mg or 0.5 mg (2 0.25 mg (0.4 mL) SUBCUT QWEEK #3 mL 01/18/23 mg/3 mL) subcutaneous pen injector (Ozempic) tamsulosin 0.4 mg capsule See Rx Instructions .Route 02/08/23 .COMPLEX #90 caps hydrocodone 5 mg-acetaminophen 325 1 tab PO Q8H PRN pain #20 tabs 03/09/23 mg tablet ondansetron 4 mg disintegrating 4 mg PO Q8H PRN nausea and 03/09/23 tablet vomiting #20 tabs tamsulosin 0.4 mg capsule (Flomax) 0.4 mg PO DAILY #14 caps 03/09/23 Allergies Allergy/AdvReac Type Severity Reaction Status Date / Time No Known Drug Allergies Allergy Verified 03/08/23 07:44 Review of Systems <Alfonso Bennett PA-C - Last Filed: 03/09/23 16:48> Review of Systems Narrative: GENERAL: Denies chills, fatigue, malaise, fever, sweats. HEENT: Denies sinus pain, ear pain, sore throat, difficulty swallowing, dizziness. RESPIRATORY: Denies dyspnea, cough, wheezing, hemoptysis, sputum. CARDIOVASCULAR: Denies chest pain, palpitations, orthopnea, edema, GASTROINTESTINAL: Reports left-sided abdominal pain, Denies nausea, vomiting, diarrhea, constipation, melena. : Denies dysuria, frequency, incontinence, hematuria, urinary retention. MUSCULOSKELETAL: denies weakness, joint pain, or bony pain SKIN: Denies rash, skin lesions, or other NEUROLOGIC: Denies weakness, headache, numbness, change in speech, confusion, seizures, incoordination. PSYCHIATRIC: No concerning psychosocial issues. 12 point review of systems is negative except for those stated above Patient History <Alfonso Bennett PA-C - Last Filed: 03/09/23 16:48> Medical History (Updated 03/09/23 @ 13:57 by Alfonso Bennett PA-C) ADD (attention deficit disorder) Arthritis Benign essential HTN BPH w urinary obs/LUTS Carpal tunnel syndrome (2012) CKD (chronic kidney disease) stage 3, GFR 30-59 ml/min Colon polyps (04/2017) Diverticulosis of colon (04/2017) External hemorrhoids without complication Gout History of elevated PSA Hyperlipidemia Hypertension (1989) Low testosterone (2011) Obesity (BMI 35.0-39.9 without comorbidity) Osteoarthritis Pre-diabetes Renal colic on left side Surgical History History of carpal tunnel repair (11/2013) History of hip surgery (~11/2016) History of lithotripsy Hx of colonoscopy with polypectomy (04/2017) Family History Brother Age: 74 Hypertension Kidney stones Brother Age: 71 Hypertension Kidney stones Father Colon cancer Heart disease Hyperlipidemia Hypertension Grandfather Cancer Mother Cancer Social History marital status: number of children: 2 occupational status: employed Smoking Status: Never smoker alcohol intake: never substance use type: does not use caffeine: No eating out: 1-3 times/week Type(s) of exercise: advised to exercise at least 150 min/week (moderate intensity aerobic) and advised to perform resistance training at least 2x/week Smoking Status: Never smoker Substance Use Type: marijuana Exam <Alfonso Bennett PA-C - Last Filed: 03/09/23 16:48> Narrative Exam Narrative: GENERAL: Well-developed patient, in mild distress. HEAD: Atraumatic. Normocephalic. EYES: Pupils equal round and reactive. Extraocular motions intact. No scleral icterus. No injection or drainage. ENT: Nose without bleeding, purulent drainage. Throat without erythema, tonsillar hypertrophy or exudate. Airway patent. NECK: Trachea midline. Non tender CARDIOVASCULAR: Regular rate and rhythm without murmurs, gallops, or rubs. RESPIRATORY: Clear to auscultation. Breath sounds equal bilaterally. No wheezes, rales, or rhonchi. GASTROINTESTINAL: Abdomen soft, non-tender, nondistended. EXTREMITIES: No edema or joint tenderness. BACK: Nontender without deformity or crepitance. No flank tenderness. NEURO: AOx3. SKIN: No rash or erythema of visible areas Initial Vital Signs Initial Vital Signs: Vital Signs Pulse Rate 64 03/09/23 10:42 Pulse Oximetry 96 03/09/23 10:42 <Claudia Tucker DO - Last Filed: 03/09/23 19:24> Initial Vital Signs Initial Vital Signs: Vital Signs Pulse Rate 64 03/09/23 10:42 Pulse Oximetry 96 03/09/23 10:42 Course <Alfonso Bennett PA-C - Last Filed: 03/09/23 16:48> Orders Ordered: ED Orders 03/09/23 10:48 CT kidney ureter bladder (KUB) Stat Complete Blood Count AUTO DIFF Stat Comprehensive Metabolic Panel Stat Lipase Stat EKG-12 Lead Stat 03/09/23 12:14 Urine Microscopic Stat Discontinued Medications Hydromorphone HCl (Hydromorphone 1 Mg Inj) 1 mg IV NOW ONE Stop: 03/09/23 11:25 Last Admin: 03/09/23 11:29 Dose: 1 mg Documented By: YUN Ketorolac Tromethamine (Ketorolac 30 Mg/Ml Vial) 15 mg IV NOW ONE Stop: 03/09/23 10:49 Last Admin: 03/09/23 10:51 Dose: 15 mg Documented By: YUN Ondansetron HCl (Ondansetron 4 Mg/2 Ml Inj) 4 mg IV NOW PRN PRN Reason: Nausea And Vomiting Last Admin: 03/09/23 10:51 Dose: 4 mg Documented By: YUN Vital Signs Vital signs: Vital Signs - 8 hr 03/09/23 11:30 03/09/23 11:31 03/09/23 11:31 Pulse Rate 53 L 54 L Blood Pressure 110/53 L Pulse Oximetry 100 100 03/09/23 12:00 03/09/23 12:01 03/09/23 12:01 Pulse Rate 58 L 58 L Blood Pressure 98/64 Pulse Oximetry 100 99 03/09/23 12:14 03/09/23 12:16 03/09/23 12:16 Pulse Rate 60 58 L Blood Pressure 109/63 Pulse Oximetry 95 99 03/09/23 12:30 03/09/23 13:00 03/09/23 13:30 Pulse Rate 58 L 54 L 56 L Blood Pressure Pulse Oximetry 100 93 99 03/09/23 14:00 03/09/23 14:03 03/09/23 14:03 Pulse Rate 54 L 61 Blood Pressure 107/64 Pulse Oximetry 99 99 <Cluadia Tucker, - Last Filed: 03/09/23 19:24> Orders Ordered: ED Orders 03/09/23 10:48 CT kidney ureter bladder (KUB) Stat Complete Blood Count AUTO DIFF Stat Comprehensive Metabolic Panel Stat Lipase Stat EKG-12 Lead Stat 03/09/23 12:14 Urine Microscopic Stat Discontinued Medications Hydromorphone HCl (Hydromorphone 1 Mg Inj) 1 mg IV NOW ONE Stop: 03/09/23 11:25 Last Admin: 03/09/23 11:29 Dose: 1 mg Documented By: YUN Ketorolac Tromethamine (Ketorolac 30 Mg/Ml Vial) 15 mg IV NOW ONE Stop: 03/09/23 10:49 Last Admin: 03/09/23 10:51 Dose: 15 mg Documented By: YUN Ondansetron HCl (Ondansetron 4 Mg/2 Ml Inj) 4 mg IV NOW PRN PRN Reason: Nausea And Vomiting Last Admin: 03/09/23 10:51 Dose: 4 mg Documented By: YUN Vital Signs Vital signs: Vital Signs - 8 hr 03/09/23 11:30 03/09/23 11:31 03/09/23 11:31 Pulse Rate 53 L 54 L Blood Pressure 110/53 L Pulse Oximetry 100 100 03/09/23 12:00 03/09/23 12:01 03/09/23 12:01 Pulse Rate 58 L 58 L Blood Pressure 98/64 Pulse Oximetry 100 99 03/09/23 12:14 03/09/23 12:16 03/09/23 12:16 Pulse Rate 60 58 L Blood Pressure 109/63 Pulse Oximetry 95 99 03/09/23 12:30 03/09/23 13:00 03/09/23 13:30 Pulse Rate 58 L 54 L 56 L Blood Pressure Pulse Oximetry 100 93 99 03/09/23 14:00 03/09/23 14:03 03/09/23 14:03 Pulse Rate 54 L 61 Blood Pressure 107/64 Pulse Oximetry 99 99 MDM - Abdominal Pain <Alfonso Bennett PA-C - Last Filed: 03/09/23 16:48> Lab Data 03/09/23 10:48 03/09/23 10:48 Labs: Lab Results 03/09/23 03/09/23 03/09/23 Range/Units 10:48 10:48 12:14 WBC 13.7 H (4.5-11.0) X10^3/uL RBC 5.35 (4.5-5.9) X10^6/uL Hgb 16.5 (13.5-17.5) g/dL Hct 47.1 (41-53) % MCV 88.0 (80-100) fL MCH 30.8 (26-34) PG MCHC 35.0 (30-36) % RDW 14.0 (11.6-14.8) % Plt Count 359 (150-400) X10^3/uL Neut % (Auto) 77.2 H (50-75) % Lymph % (Auto) 14.9 L (25-40) % [place] % (Auto) 5.6 (3-14) % Eos % (Auto) 1.8 L (2-4) % Baso % (Auto) 0.5 (0-2) % Neut # (Auto) 73990 H (4867-6237) /uL Lymph # (Auto) 2000 (8722-7897) /uL [place] # (Auto) 800 (0-900) /uL Eos # (Auto) 200 (0-450) /uL Baso # (Auto) 100 (0-100) /uL Sodium 130 L (137-145) mmol/L Potassium 4.2 (3.4-5.1) mmol/L Chloride 97 L (98-107) mmol/L Carbon Dioxide 20 L (22-32) mmol/L BUN 29 H (9-20) mg/dL Creatinine 1.33 H (0.66-1.25) mg/dL Estimated GFR > 60 (>60) mL/min BUN/Creatinine Ratio 21.8 (6-22) Glucose 176 H (80-110) mg/dL Calcium 9.8 (8.4-10.2) mg/dL Total Bilirubin 1.9 H (0.2-1.3) mg/dL AST 28 (17-59) IU/L ALT 27 (<50) IU/L Alkaline Phosphatase 85 (38-126) U/L Total Protein 8.3 H (6.3-8.2) g/dL Albumin 4.8 (3.5-5.0) g/dL Globulin 3.5 (1.7-4.1) g/dL Albumin/Globulin Ratio 1.4 (1.0-2.8) Lipase 61 (23-300) U/L Urine RBC 0-1/hpf (0-5/HPF) Urine WBC 0-1/hpf (0-5/HPF) Ur Squamous Epith Cells 0-1 /hpf (0-5/HPF) Urine Bacteria None seen (None) Hyaline Casts 0-1/lpf (None) Ur Culture Indicated? Cult not indicated Point of care testing: Urine Dip Bedside Urine Glucose Negative Bedside Urine Bilirubin - Negative Bedside Urine Ketone ++ 40 Urine Specific Omro 1.025 Bedside Urine Occult Blood - Negative Bedside Urine pH 6.0 Bedside Urine Protein +/- 15 Bedside Urine Urobilinogen - Negative Bedside Urine Nitrite - Negative Bedside Urine Leukocytes - Negative Esterase Imaging Data CT scan - abdomen/pelvis: Radiologist's Impression: [address] [address] [address] Scan Report Signed Patient: Tru Boykin MR#: [id number] : 1960 Acct:[id number] Age/Sex: 62 / M Date of Service: 03/09/23 Loc: ED Accession Number: [id number] ?? Procedure: CT kidney ureter bladder (KUB) Ordering Provider: Claudia Tucker D.O. PROCEDURE:? CT KIDNEY URETER BLADDER (KUB) ? INDICATIONS:? left flank pain, radiates to abd ? TECHNIQUE:? Axial sections were acquired from the lung bases to the pubic symphysis.? Coronal and sagittal reformats were performed.? For radiation dose reduction, the following was used: ?automated exposure control, adjustment of mA and/or kV according to patient size.? ? COMPARISON:? [facility], CT, CT KIDNEY URETER BLADDER (KUB), 07/14/2020, 3:54.? [facility], CT, CT ABDOMEN PELVIS W CON, 07/16/2020, 10:08. ? FINDINGS:? Image quality:? Portions of the lower pelvis are suboptimally evaluated secondary to metallic streak artifact from bilateral hip arthroplasty. ? Lung bases:? Unremarkable.? ? Heart:? No significant findings. ? URINARY: Right Kidney:? Renal atrophy is present.? Parapelvic cysts.? Punctate inferior pole calcification.? No obstruction.? Simple exophytic cyst.? Right Ureter:? No hydroureter.? ? Left Kidney:? Renal atrophy with parapelvic cysts.? No stones.? No obstruction.? Left Ureter:? No hydroureter.? ? Bladder:? Normal wall thickness. No stones. ? ? ? ABDOMEN: Liver:? Unremarkable.? ? Gallbladder:? Unremarkable.? ? Biliary ducts:? Unremarkable.? ? Pancreas:? Unremarkable.? ? Spleen:? Unremarkable.? ? Adrenal Glands:? Unremarkable.? ? ? Stomach and Bowel:? Stomach, small bowel loops, and colon are nonobstructive.? Colonic diverticula are present.? No inflammatory change. Peritoneum:? No abnormal intraperitoneal fluid.? No free air.? ? Ventral Wall: ? Fat containing ventral hernia.? Abdominal Nodes:? No enlarged retroperitoneal or mesenteric lymph nodes.? Vessels:? Aorta and inferior vena cava are normal in size.? ? PELVIS: Pelvic Organs:? Unremarkable.? ? Pelvic Nodes: Unremarkable. Miscellaneous:? Fat containing left inguinal hernia. ? Bones:? Unremarkable. ? IMPRESSION:? ? No acute intra-abdominal pelvic process. ? Diverticulosis. ? ? ? Dictated by: Gisselle Henley M.D. on 03/09/2023 at 13:16 ? ? Approved by: Gisselle Henley M.D. on 03/09/2023 at 13:19 ? MDM Narrative Medical decision making narrative: MDM * differential diagnosis includes but not limited to pyelonephritis, kidney stone, UTI, hydronephrosis, gonorrhea, chlamydia, diverticulosis , muscular strain * Prior records reviewed: Patient has not been here for similar complaints in the past. * My lab interpretation: Patient's CBC showed mild leukocytosis at 13.7. Hemoglobin within normal limits. Mildly hyponatremic at 1:30 a.m.. Mild elevated creatinine of 1.33 elbows though this appears chronic for the patient. * My imaging interpretation: CT showed no acute findings, did show diverticulosis. * Clinical Decision Rules/Scores evaluated: None * Independent discussions with: None ED Course: This is a 62-year-old male presents emergency department due to left flank pain for the last 3 weeks. He states that it does feel similar to kidney stones he is in the past and has an established urologist already who we saw [address] scan was ordered which showed no obvious kidney stones but did show diverticulosis. Patient states that he has a history of kidney stones that ?do not show up on CT scan ?which maybe a possibility. Recommended he follow up with his urologist later this week which has a established. Urinalysis showed no evidence of urinary tract infection. Lab work unremarkable although he did have a mild leukocytosis suspected to be reactive. Also recommended provided diverticulosis recommendations as it is maybe a possible cause of the patient's pain. Patient will follow up with Urology outpatient. Shared Decision Making: Discussed plan with patient who is comfortable with the plan. Social Considerations: None Disposition: Discharged to home <Claudia Tucker, - Last Filed: 03/09/23 19:24> Lab Data Labs: Lab Results 03/09/23 03/09/23 03/09/23 Range/Units 10:48 10:48 12:14 WBC 13.7 H (4.5-11.0) X10^3/uL RBC 5.35 (4.5-5.9) X10^6/uL Hgb 16.5 (13.5-17.5) g/dL Hct 47.1 (41-53) % MCV 88.0 (80-100) fL MCH 30.8 (26-34) PG MCHC 35.0 (30-36) % RDW 14.0 (11.6-14.8) % Plt Count 359 (150-400) X10^3/uL Neut % (Auto) 77.2 H (50-75) % Lymph % (Auto) 14.9 L (25-40) % [place] % (Auto) 5.6 (3-14) % Eos % (Auto) 1.8 L (2-4) % Baso % (Auto) 0.5 (0-2) % Neut # (Auto) 78468 H (0539-4487) /uL Lymph # (Auto) 2000 (8768-1241) /uL [place] # (Auto) 800 (0-900) /uL Eos # (Auto) 200 (0-450) /uL Baso # (Auto) 100 (0-100) /uL Sodium 130 L (137-145) mmol/L Potassium 4.2 (3.4-5.1) mmol/L Chloride 97 L (98-107) mmol/L Carbon Dioxide 20 L (22-32) mmol/L BUN 29 H (9-20) mg/dL Creatinine 1.33 H (0.66-1.25) mg/dL Estimated GFR > 60 (>60) mL/min BUN/Creatinine Ratio 21.8 (6-22) Glucose 176 H (80-110) mg/dL Calcium 9.8 (8.4-10.2) mg/dL Total Bilirubin 1.9 H (0.2-1.3) mg/dL AST 28 (17-59) IU/L ALT 27 (<50) IU/L Alkaline Phosphatase 85 (38-126) U/L Total Protein 8.3 H (6.3-8.2) g/dL Albumin 4.8 (3.5-5.0) g/dL Globulin 3.5 (1.7-4.1) g/dL Albumin/Globulin Ratio 1.4 (1.0-2.8) Lipase 61 (23-300) U/L Urine RBC 0-1/hpf (0-5/HPF) Urine WBC 0-1/hpf (0-5/HPF) Ur Squamous Epith Cells 0-1 /hpf (0-5/HPF) Urine Bacteria None seen (None) Hyaline Casts 0-1/lpf (None) Ur Culture Indicated? Cult not indicated Point of care testing: Urine Dip Bedside Urine Glucose Negative Bedside Urine Bilirubin - Negative Bedside Urine Ketone ++ 40 Urine Specific Omro 1.025 Bedside Urine Occult Blood - Negative Bedside Urine pH 6.0 Bedside Urine Protein +/- 15 Bedside Urine Urobilinogen - Negative Bedside Urine Nitrite - Negative Bedside Urine Leukocytes - Negative Esterase Discharge Plan Departure Patient Disposition: Home Clinical Impression: Acute flank pain Instructions: DI for Diverticulosis Activity Restrictions/Additional Instructions: Thank you for coming to the [facility] Emergency Department today. As we discussed your CT scan showed no obvious findings of any kidney stone. It did show diverticulosis which you are already aware of. I recommended follow up with the urologist as scheduled to discuss further investigation of the cause of your pain. Please take the medications as prescribed. I hope you feel better soon. Prescriptions: New tamsulosin [Flomax] 0.4 mg capsule 0.4 mg PO DAILY Qty: 14 0RF ondansetron 4 mg tablet,disintegrating 4 mg PO Q8H PRN (Reason: nausea and vomiting) Qty: 20 0RF hydrocodone-acetaminophen 5-325 mg tablet 1 tab PO Q8H PRN (Reason: pain) Qty: 20 0RF No Action aspirin [Adult Aspirin Regimen] 81 mg tablet,delayed release (DR/EC) 81 mg PO DAILY lisinopril-hydrochlorothiazide 20-25 mg tablet See Rx Instructions .ROUTE .COMPLEX Qty: 90 2RF Dose Instruction: Take 1 tablet by mouth daily Rx Instructions: Take 1 tablet by mouth daily potassium citrate 15 mEq tablet extended release 15 meq PO TID Qty: 270 3RF Rx Instructions: Take with meals tamsulosin 0.4 mg capsule See Rx Instructions .ROUTE .COMPLEX Qty: 90 3RF Dose Instruction: Take 1 capsule (0.4 mg) by mouth daily Rx Instructions: Take 1 capsule (0.4 mg) by mouth daily atorvastatin [Lipitor] 40 mg tablet 40 mg PO DAILY Qty: 90 3RF Ozempic 0.25 mg or 0.5 mg (2 mg/3 mL) pen injector 0.25 mg SUBCUT QWEEK Qty: 3 11RF Rx Instructions: for 4 weeks, then 0.5 mg subQ weekly allopurinol 100 mg tablet 100 mg PO DAILY Referrals: Esteban Newsome MD [Primary Care Provider] - Stand Alone Forms: Patient Portal/API <Claudia Tucker DO - Last Filed: 03/09/23 19:24> Cosign ED Attending Cosretaature Attestation: I was immediately available in the department for consultation. Documentation has been reviewed. Patient case was discussed with myself, notes patient describes history of radiopaque kidney stones he does have follow up with Urology. Reviewed plan, return precautions.
[2023-03-09 12:39] LABS: Bacteria Urine None Seen; Culture Indicated Urine Cult Not Indicated; Hyaline Casts Urine 0-1/LPF; RBC Urine 0-1/HPF (0-5/HPF); Squamous Epithelial Cell Urine 0-1 /HPF (0-5/HPF); WBC Urine 0-1/HPF (0-5/HPF)
== END 2023-03-09 14:12 | disposition home or self-care (01) ==
PROVIDERS: Emergency Medicine; Emergency Provider Physician Assistant Medical; PCP Student in an Organized Health Care Education/Training Program
DX: R10.9 Unspecified abdominal pain (principal); R00.1 Bradycardia, unspecified
CPT/HCPCS: 36415; 74176; 80053; 81003; 81015; 83690; 85025; 93005; 96374; 96375; 99284; J1170; J1885; J2405

== ENCOUNTER 2023-03-16 16:51 | Emergency (ER) | payer OTHER, SELFPAY ==
[2023-03-16] VITALS (14 sets, daily range): BP systolic 91–113; BP diastolic 51–69; PULSE 50–86; RESP 22; TEMP 36.6; O2SAT 97–99; BMI 36.6
[2023-03-16] MEDS: ONDANSETRON 4 MG/2 ML INJ IV (17:49)
[2023-03-16 18:07] LABS: Add Manual Diff / Slide Review NO; Basophils Absolute Auto 0 /uL (0-100); Basophils Percent Auto 0.5 % (0-2); Eosinophils Absolute Auto 100 /uL (0-450); Eosinophils Percent Auto 1.4 % (2-4); Hematocrit 45.4 % (41-53); Lymphocytes Absolute Auto 1600 /uL (1100-4500); Lymphocytes Percent Auto 15.3 % (25-40); Mean Corpuscular HGB Conc 35.2 % (30-36); Mean Corpuscular Hemoglobin 30.7 PG (26-34); Mean Corpuscular Volume 87.3 fL (80-100); Monocytes Absolute Auto 700 /uL (0-900); Monocytes Percent Auto 6.7 % (3-14); Neutrophils Absolute Auto 7800 /uL (1500-7000); Neutrophils Percent Auto 76.1 % (50-75); Platelet Count 313 X10^3/uL (150-400); Red Blood Cell Count 5.21 X10^6/uL (4.5-5.9); Red Cell Distribution Width 14.1 % (11.6-14.8); White Blood Cell Count 10.2 X10^3/uL (4.5-11.0)
[2023-03-16 18:08] LABS: Alanine Aminotransferase 23 IU/L (<50); Albumin 4.4 g/dL (3.5-5.0); Albumin Globulin Ratio 1.4 (1.0-2.8); Alkaline Phosphatase 81 U/L (38-126); Aspartate Aminotransferase 32 IU/L (17-59); BUN Creatinine Ratio 18.1 (6-22); Bilirubin Total 1.7 mg/dL (0.2-1.3); Blood Urea Nitrogen 21 mg/dL (9-20); Calcium 9.6 mg/dL (8.4-10.2); Carbon Dioxide 20 mmol/L (22-32); Chloride 98 mmol/L (98-107); Estimated Glomerular Filt Rate > 60 mL/min (>60); Globulin 3.2 g/dL (1.7-4.1); Glucose 124 mg/dL (80-110); HEMOLYSIS 29 (0-50); Lipase 49 U/L (23-300); Potassium 3.8 mmol/L (3.4-5.1); Sodium 132 mmol/L (137-145); Total Protein 7.6 g/dL (6.3-8.2)
[2023-03-16] MEDS: KETOROLAC 30 MG/ML VIAL IV (20:33)
--- NOTE | 2023-03-16 21:26 | ED.ABDPAIN ---
HPI - Abdominal Pain General Chief Complaint: Abdominal Pain Stated Complaint: lt sided back pain Time Seen by Provider: 03/16/23 21:18 Source: patient Mode of arrival: Ambulatory History of Present Illness HPI narrative: Patient is a 62-year-old male history of nephrolithiasis, hypertension, hyperlipidemia, diabetes presenting today with ongoing left-sided flank pain. Seen evaluated here on March 09 thought to have nephrolithiasis but workup was negative. He reports that this happened 1 other time he had protein stone which were not detectable another urologist many years ago to go get them out. He also had a diagnosis of internal shingles as well. He is not had any fever or chills. Reports it is very reproducible with palpation vomiting. He can not quite find a comfortable position. He feels like he is bloated. He is finally passing some gas today he. He feels like after he urinates the pain gets worse. He denies any chest pain or shortness of breath. He does feel nauseous at times. He thinks that if he would vomit like to be excruciating. He does not really have any flank pain it seems to be left quadrant pain. Related Data Home Medications Medication Instructions Recorded Confirmed aspirin 81 mg tablet,delayed 81 mg PO DAILY 09/29/20 03/08/23 release (Adult Aspirin Regimen) allopurinol 100 mg tablet 100 mg PO DAILY 10/06/22 03/08/23 Previous Rx's Medication Instructions Recorded lisinopril 20 See Rx Instructions .Route 10/12/22 mg-hydrochlorothiazide 25 mg tablet .COMPLEX #90 tabs potassium citrate 15 mEq (1,620 15 meq PO TID #270 tabs 12/23/22 mg) tablet,extended release atorvastatin 40 mg tablet (Lipitor) 40 mg PO DAILY cholesterol #90 tabs 01/18/23 semaglutide 0.25 mg or 0.5 mg (2 0.25 mg (0.4 mL) SUBCUT QWEEK #3 mL 01/18/23 mg/3 mL) subcutaneous pen injector (Ozempic) tamsulosin 0.4 mg capsule See Rx Instructions .Route 02/08/23 .COMPLEX #90 caps hydrocodone 5 mg-acetaminophen 325 1 tab PO Q8H PRN pain #20 tabs 03/09/23 mg tablet ondansetron 4 mg disintegrating 4 mg PO Q8H PRN nausea and 03/09/23 tablet vomiting #20 tabs tamsulosin 0.4 mg capsule (Flomax) 0.4 mg PO DAILY #14 caps 03/09/23 Allergies Allergy/AdvReac Type Severity Reaction Status Date / Time No Known Drug Allergies Allergy Verified 03/08/23 07:44 Review of Systems Review of Systems ROS Unobtainable: All systems reviewed & are unremarkable except as noted in HPI and below Patient History Medical History ADD (attention deficit disorder) Arthritis Benign essential HTN BPH w urinary obs/LUTS Carpal tunnel syndrome (2012) CKD (chronic kidney disease) stage 3, GFR 30-59 ml/min Colon polyps (04/2017) Diverticulosis of colon (04/2017) External hemorrhoids without complication Gout History of elevated PSA Hyperlipidemia Hypertension (1989) Low testosterone (2011) Obesity (BMI 35.0-39.9 without comorbidity) Osteoarthritis Pre-diabetes Renal colic on left side Surgical History History of carpal tunnel repair (11/2013) History of hip surgery (~11/2016) History of lithotripsy Hx of colonoscopy with polypectomy (04/2017) Family History Brother Age: 74 Hypertension Kidney stones Brother Age: 71 Hypertension Kidney stones Father Colon cancer Heart disease Hyperlipidemia Hypertension Grandfather Cancer Mother Cancer Social History marital status: number of children: 2 occupational status: employed Smoking Status: Never smoker alcohol intake: never substance use type: does not use caffeine: No eating out: 1-3 times/week Type(s) of exercise: advised to exercise at least 150 min/week (moderate intensity aerobic) and advised to perform resistance training at least 2x/week Smoking Status: Never smoker Substance Use Type: marijuana Exam Initial Vital Signs Initial Vital Signs: Vital Signs Temperature 98 F 03/16/23 17:02 Pulse Rate 86 03/16/23 17:02 Respiratory Rate 22 03/16/23 17:02 Blood Pressure 113/69 03/16/23 17:02 Pulse Oximetry 98 03/16/23 17:02 Oxygen Delivery Method Room Air 03/16/23 17:02 GENERAL: Alert pleasant 62-year-old male and in no acute distress. HEENT: Head atraumatic,EOMI, pupils reactive, face symmetric, moist mucous membranes CARDIOVASCULAR: Regular rate and rhythm without murmurs, rubs or gallops. RESPIRATORY: Breath sounds equal bilaterally, no wheezes rales or rhonchi. ABDOMEN: Soft, mild distention normal bowel sounds mild left upper quadrant pain no guarding no rebound : No CVA tenderness EXTREMITIES: Normal range of motion, no clubbing or edema. Neurovascularly intact NEUROLOGICAL: Alert and oriented x4. SKIN: Warm, dry, no laceration, no petechiae, no rashes or lesions. Course Orders Ordered: ED Orders 03/16/23 21:40 CT abdomen pelvis w con Stat 03/16/23 21:41 EKG-12 Lead Stat Discontinued Medications Sodium Chloride (Normal Saline 0.9%) 1,000 mls @ 1,000 mls/hr IV BOLUS ONE Stop: 03/16/23 22:29 Last Infusion: 03/16/23 23:48 Dose: 0 mls/hr Documented By: Admin: 03/16/23 21:57 Dose: 1,000 mls/hr Documented By: GREGORIO Ketorolac Tromethamine (Ketorolac 30 Mg/Ml Vial) 30 mg IV NOW ONE Stop: 03/16/23 20:23 Last Admin: 03/16/23 20:33 Dose: 30 mg Documented By: GREGORIO Ondansetron HCl (Ondansetron 4 Mg Odt) 4 mg PO NOW PRN PRN Reason: Nausea And Vomiting Ondansetron HCl (Ondansetron 4 Mg/2 Ml Inj) 4 mg IV NOW PRN PRN Reason: Nausea And Vomiting Last Admin: 03/16/23 17:49 Dose: 4 mg Documented By: MARSHA Vital Signs Vital signs: Vital Signs - 8 hr 03/16/23 20:30 03/16/23 20:30 03/16/23 21:00 Pulse Rate 54 L Blood Pressure 96/54 L 91/55 L Pulse Oximetry 99 Oxygen Delivery Method Room Air 03/16/23 21:00 03/16/23 21:30 03/16/23 21:30 Pulse Rate 55 L 59 L Blood Pressure 112/69 Pulse Oximetry 99 99 Oxygen Delivery Method Room Air Room Air 03/16/23 22:00 03/16/23 22:00 03/16/23 22:30 Pulse Rate 62 54 L Blood Pressure 109/57 L Pulse Oximetry 99 98 Oxygen Delivery Method Room Air Room Air 03/16/23 22:53 03/16/23 22:53 03/16/23 23:00 Pulse Rate 52 L Blood Pressure 105/57 L 101/58 L Pulse Oximetry 98 Oxygen Delivery Method Room Air 03/16/23 23:00 03/16/23 23:30 03/16/23 23:30 Pulse Rate 51 L 50 L Blood Pressure 99/55 L Pulse Oximetry 97 97 Oxygen Delivery Method Room Air Room Air 03/17/23 00:00 03/17/23 00:00 Pulse Rate 51 L Blood Pressure 97/56 L Pulse Oximetry 97 Oxygen Delivery Method Room Air MDM - Abdominal Pain Lab Data 03/16/23 17:40 03/16/23 17:40 Labs: Lab Results 03/16/23 03/16/23 03/16/23 Range/Units 17:40 17:40 17:40 WBC 10.2 (4.5-11.0) X10^3/uL RBC 5.21 (4.5-5.9) X10^6/uL Hgb 16.0 (13.5-17.5) g/dL Hct 45.4 (41-53) % MCV 87.3 (80-100) fL MCH 30.7 (26-34) PG MCHC 35.2 (30-36) % RDW 14.1 (11.6-14.8) % Plt Count 313 (150-400) X10^3/uL Neut % (Auto) 76.1 H (50-75) % Lymph % (Auto) 15.3 L (25-40) % [place] % (Auto) 6.7 (3-14) % Eos % (Auto) 1.4 L (2-4) % Baso % (Auto) 0.5 (0-2) % Neut # (Auto) 7800 H (1453-1797) /uL Lymph # (Auto) 1600 (9394-3520) /uL [place] # (Auto) 700 (0-900) /uL Eos # (Auto) 100 (0-450) /uL Baso # (Auto) 0 (0-100) /uL Sodium 132 L (137-145) mmol/L Potassium 3.8 (3.4-5.1) mmol/L Chloride 98 (98-107) mmol/L Carbon Dioxide 20 L (22-32) mmol/L BUN 21 H (9-20) mg/dL Creatinine 1.16 (0.66-1.25) mg/dL Estimated GFR > 60 (>60) mL/min BUN/Creatinine Ratio 18.1 (6-22) Glucose 124 H (80-110) mg/dL Lactate 2.0 (0.7-2.1) mmol/L Calcium 9.6 (8.4-10.2) mg/dL Total Bilirubin 1.7 H (0.2-1.3) mg/dL AST 32 (17-59) IU/L ALT 23 (<50) IU/L Alkaline Phosphatase 81 (38-126) U/L Total Creatine Kinase (55-170) U/L Troponin I (0.01-0.034) ng/mL Total Protein 7.6 (6.3-8.2) g/dL Albumin 4.4 (3.5-5.0) g/dL Globulin 3.2 (1.7-4.1) g/dL Albumin/Globulin Ratio 1.4 (1.0-2.8) Lipase 49 (23-300) U/L 03/16/23 Range/Units 17:40 WBC (4.5-11.0) X10^3/uL RBC (4.5-5.9) X10^6/uL Hgb (13.5-17.5) g/dL Hct (41-53) % MCV (80-100) fL MCH (26-34) PG MCHC (30-36) % RDW (11.6-14.8) % Plt Count (150-400) X10^3/uL Neut % (Auto) (50-75) % Lymph % (Auto) (25-40) % [place] % (Auto) (3-14) % Eos % (Auto) (2-4) % Baso % (Auto) (0-2) % Neut # (Auto) (3818-8898) /uL Lymph # (Auto) (9450-9386) /uL [place] # (Auto) (0-900) /uL Eos # (Auto) (0-450) /uL Baso # (Auto) (0-100) /uL Sodium (137-145) mmol/L Potassium (3.4-5.1) mmol/L Chloride (98-107) mmol/L Carbon Dioxide (22-32) mmol/L BUN (9-20) mg/dL Creatinine (0.66-1.25) mg/dL Estimated GFR (>60) mL/min BUN/Creatinine Ratio (6-22) Glucose (80-110) mg/dL Lactate (0.7-2.1) mmol/L Calcium (8.4-10.2) mg/dL Total Bilirubin (0.2-1.3) mg/dL AST (17-59) IU/L ALT (<50) IU/L Alkaline Phosphatase (38-126) U/L Total Creatine Kinase 79 (55-170) U/L Troponin I < 0.012 (0.01-0.034) ng/mL Total Protein (6.3-8.2) g/dL Albumin (3.5-5.0) g/dL Globulin (1.7-4.1) g/dL Albumin/Globulin Ratio (1.0-2.8) Lipase (23-300) U/L Point of care testing: Urine Dip Bedside Urine Glucose Negative Bedside Urine Bilirubin - Negative Bedside Urine Ketone - Negative Urine Specific [place] 1.010 Bedside Urine Occult Blood - Negative Bedside Urine pH 8 Bedside Urine Protein - Negative Bedside Urine Urobilinogen - Negative Bedside Urine Nitrite - Negative Bedside Urine Leukocytes - Negative Esterase Imaging Data CT scan - abdomen/pelvis: Radiologist's Impression: PROCEDURE:? CT ABDOMEN PELVIS W CON ? INDICATIONS:? left side pain ? TECHNIQUE:? After the administration of IV contrast, axial sections were acquired from the lung bases to the pubic symphysis.? Coronal and sagittal reformats were performed.? For radiation dose reduction, the following was used:? automated exposure control, adjustment of mA and/or kV according to patient size. ? COMPARISON:? [facility], CT, CT ABDOMEN PELVIS W CON, 07/16/2020, 10:08. ? FINDINGS:? Image quality:? There is extensive metallic streak artifact from patient's bilateral hip prostheses limiting evaluation.? ? Lung bases:? Unremarkable.? ? Heart:? Heart is normal in size. ? ? ABDOMEN: Liver:? No mass lesion. Gallbladder:? Within normal limits without calcified gallstones.? ? Biliary ducts:? No biliary ductal dilatation.? ? Pancreas:? Unremarkable.? ? Spleen:? Normal in size.? ? Adrenal Glands:? No adrenal nodules.? ? Kidneys and Ureters:? No hydronephrosis.? There are multiple bilateral parapelvic renal cysts.? A punctate nonobstructing stone is demonstrated within the right kidney. ? ? Stomach and Bowel:? Stomach, small bowel loops, and colon are normal in caliber and wall thickness.? The appendix is normal.? There is colonic diverticulosis without acute diverticulitis.? There are scattered air-fluid levels throughout the colon without abnormal dilatation.? Peritoneum:? No abnormal intraperitoneal fluid.? No free air.? ? Ventral Wall: ? There is a small fat-containing umbilical hernia.? Abdominal Nodes:? No retroperitoneal or mesenteric adenopathy by size criteria.? Vessels:? Aorta and inferior vena cava are normal in size.? ? PELVIS: Pelvic Organs:? Prostate not well visualized due to streak artifact.? ? Bladder:? Unremarkable.? ? Pelvic Nodes: No enlarged lymph nodes.? Miscellaneous: No inguinal hernias are seen. ? ? ? Bones:? There is a healed left posterior lungs rib fracture.? Bilateral hip prostheses are present limiting evaluation due to streak artifact.? Visualized osseous structures demonstrate no suspicious focal lesions. ? IMPRESSION:? ? 1. Scattered air-fluid levels throughout the colon without abnormal dilatation.? The findings are suggestive of a gastroenteritis or ileus.? No bowel obstruction. ? 2. Colonic diverticulosis without acute diverticulitis.? ? ? Dictated by: Bryn Vela M.D. on 03/16/2023 at 23:37 ? ? Approved by: Bryn Vela M.D. on 03/16/2023 at 23:40 ? ECG Data Interpretation: EKG 1. Rhythm rate 63 P wave is noted small not junctional no ST changes EKG 2. Sinus rhythm rate 50 MO interval once any QRS [address] changes artifact noted MDM Narrative Medical decision making narrative: Patient with multiple comorbidities including hypertension diabetes hyperlipidemia presenting today with ongoing left-sided flank pain. Definitely is positional and reproducible. Low suspicion for dissection. Blood pressure did decrease however he was definitely on his side it has gone back up with positioning. Blood work is reassuring. Repeat CT does not show any nephrolithiasis. Possible gastroenteritis versus an ileus. He is passing gas. He is not requiring anything here for pain. Blood work is reassuring and has been reviewed. He did have some diarrhea which would be consistent with a gastroenteritis but did not seem like a lot. No nausea vomiting or fever. He is having some left-sided left upper quadrant pain EKGs do not show any ST elevation troponin is negative. Very atypical for STEMI or acute coronary syndrome. It has been ongoing for a couple 7 days. At this time recommend supportive care follow-up as needed. No further imaging needed. Discharge Plan Departure Patient Disposition: Home Clinical Impression: Abdominal pain Instructions: DI for Abdominal Pain-Adult Activity Restrictions/Additional Instructions: *You have been diagnosed with abdominal pain *What to do: At this time please follow-up with primary. I am sorry that ear in so much pain. *Continue to take medications as directed *Follow up with your primary care provider in 2-3 days or call [phone] *Return to ER if you should have increasing pain nausea vomiting fever or any new, worsening or concerning symptoms Prescriptions: No Action aspirin [Adult Aspirin Regimen] 81 mg tablet,delayed release (DR/EC) 81 mg PO DAILY lisinopril-hydrochlorothiazide 20-25 mg tablet See Rx Instructions .ROUTE .COMPLEX Qty: 90 2RF Dose Instruction: Take 1 tablet by mouth daily Rx Instructions: Take 1 tablet by mouth daily potassium citrate 15 mEq tablet extended release 15 meq PO TID Qty: 270 3RF Rx Instructions: Take with meals tamsulosin 0.4 mg capsule See Rx Instructions .ROUTE .COMPLEX Qty: 90 3RF Dose Instruction: Take 1 capsule (0.4 mg) by mouth daily Rx Instructions: Take 1 capsule (0.4 mg) by mouth daily atorvastatin [Lipitor] 40 mg tablet 40 mg PO DAILY Qty: 90 3RF Ozempic 0.25 mg or 0.5 mg (2 mg/3 mL) pen injector 0.25 mg SUBCUT QWEEK Qty: 3 11RF Rx Instructions: for 4 weeks, then 0.5 mg subQ weekly tamsulosin [Flomax] 0.4 mg capsule 0.4 mg PO DAILY Qty: 14 0RF ondansetron 4 mg tablet,disintegrating 4 mg PO Q8H PRN (Reason: nausea and vomiting) Qty: 20 0RF hydrocodone-acetaminophen 5-325 mg tablet 1 tab PO Q8H PRN (Reason: pain) Qty: 20 0RF allopurinol 100 mg tablet 100 mg PO DAILY Referrals: Luis Felipe Mora DO [Primary Care Provider] - Stand Alone Forms: Patient Portal/API
--- NOTE | 2023-03-16 21:40 | DI.CT.S_ITS ---
PROCEDURE: CT ABDOMEN PELVIS W CON INDICATIONS: left side pain TECHNIQUE: After the administration of IV contrast, axial sections were acquired from the lung bases to the pubic symphysis. Coronal and sagittal reformats were performed. For radiation dose reduction, the following was used: automated exposure control, adjustment of mA and/or kV according to patient size. COMPARISON: [facility], CT, CT ABDOMEN PELVIS W CON, 07/16/2020, 10:08. FINDINGS: Image quality: There is extensive metallic streak artifact from patient's bilateral hip prostheses limiting evaluation. Lung bases: Unremarkable. Heart: Heart is normal in size. ABDOMEN: Liver: No mass lesion. Gallbladder: Within normal limits without calcified gallstones. Biliary ducts: No biliary ductal dilatation. Pancreas: Unremarkable. Spleen: Normal in size. Adrenal Glands: No adrenal nodules. Kidneys and Ureters: No hydronephrosis. There are multiple bilateral parapelvic renal cysts. A punctate nonobstructing stone is demonstrated within the right kidney. Stomach and Bowel: Stomach, small bowel loops, and colon are normal in caliber and wall thickness. The appendix is normal. There is colonic diverticulosis without acute diverticulitis. There are scattered air-fluid levels throughout the colon without abnormal dilatation. Peritoneum: No abnormal intraperitoneal fluid. No free air. Ventral Wall: There is a small fat-containing umbilical hernia. Abdominal Nodes: No retroperitoneal or mesenteric adenopathy by size criteria. Vessels: Aorta and inferior vena cava are normal in size. PELVIS: Pelvic Organs: Prostate not well visualized due to streak artifact. Bladder: Unremarkable. Pelvic Nodes: No enlarged lymph nodes. Miscellaneous: No inguinal hernias are seen. Bones: There is a healed left posterior lungs rib fracture. Bilateral hip prostheses are present limiting evaluation due to streak artifact. Visualized osseous structures demonstrate no suspicious focal lesions. IMPRESSION: 1. Scattered air-fluid levels throughout the colon without abnormal dilatation. The findings are suggestive of a gastroenteritis or ileus. No bowel obstruction. 2. Colonic diverticulosis without acute diverticulitis. Dictated by: Bryn Vela M.D. on 03/16/2023 at 23:37 Approved by: Bryn Vela M.D. on 03/16/2023 at 23:40
[2023-03-16 21:54] LABS: Creatine Kinase 79 U/L (55-170)
[2023-03-16] MEDS: SODIUM CHLORIDE 0.9% 1,000 ML 1000 ML IV (21:57)
[2023-03-16 22:07] LABS: Troponin I < 0.012 ng/mL (0.01-0.034)
[2023-03-17] VITALS: BP 97/56; PULSE 51; O2SAT 97
== END 2023-03-17 00:15 | disposition home or self-care (01) ==
PROVIDERS: Emergency Medicine; Emergency Provider Emergency Medicine; PCP Family Medicine
DX: R10.9 Unspecified abdominal pain (principal)
CPT/HCPCS: 36415; 74177; 80053; 81003; 82550; 83605; 83690; 84484; 85025; 93005; 96361; 96374; 96375; 99284; J1885; J2405; Q9967

== ENCOUNTER → 2023-03-18 15:58 | Outpatient (CLI) | payer OTHER, SELFPAY ==
--- NOTE | 2023-03-18 15:59 | DI.MRI.S_ITS ---
PROCEDURE: MR ABDOMEN WO/W CON INDICATIONS: Lt lower abd pain x 2 wks. no lumbar tenderness. TECHNIQUE: Coronal HASTE through abdomen and pelvis; axial 2D FLASH in- and [id number] (with and without fat saturation), and breath-hold T2 FSE from the hepatic dome to the bottom of the kidneys. Coronal HASTE MR urogram of kidneys and bladder. Dynamic coronal VIBE during IV gadolinium administration; postgadolinium axial VIBE or 2D FLASH with fat saturation from the hepatic dome through the kidneys. COMPARISON: [facility], CT, CT ABDOMEN PELVIS W CON, 03/16/2023, 21:59. FINDINGS: Image quality: Excellent. Genitourinary system: No renal masses. Normal enhancement. No hydronephrosis. Other solid organs: No liver lesions. Spleen, pancreas, and adrenals are unremarkable. Nodes and vessels: Question beaded appearance of right mid and distal renal artery. Question fibromuscular dysplasia. Otherwise aorta, bilateral iliacs, left renal artery, and SMA, celiac, and VINAYAK are widely patent. Bowel and peritoneum: Visualized loops are unremarkable. Imaging does not include the pelvis.. Lung bases: Unremarkable Bones and soft tissues: Unremarkable IMPRESSION: 1. Suggestion of possible fibromuscular dysplasia of the right renal artery this is not definite. 2. No other significant findings noted. Dictated by: Vic Villagomez M.D. on 03/18/2023 at 17:52 Approved by: iVc Villagomez M.D. on 03/18/2023 at 17:59
== END ==
PROVIDERS: PCP Family Medicine; Referring Provider Family Medicine; Visit Provider Family Medicine
DX: R10.32 Left lower quadrant pain (principal)
CPT/HCPCS: 74183; A9579

== ENCOUNTER → 2023-04-18 09:10 | Outpatient (CLI) | payer OTHER, SELFPAY ==
--- NOTE | 2023-04-18 09:12 | DI.RAD.S_ITS ---
PROCEDURE: XR SHOULDER LT MIN 2V INDICATIONS: chronic neck and shoulder pain TECHNIQUE: 3 views of the shoulder were acquired. COMPARISON: None. FINDINGS: Bones: No fractures or dislocations. No suspicious bony lesions. Visualized ribs appear intact. Moderate AC joint hypertrophy. Possible spurring of the humeral head. The glenohumeral joint is not well evaluated on included views. Soft tissues: No suspicious soft tissue calcifications. IMPRESSION: No acute osseous abnormality. Acromioclavicular joint degenerative changes. If symptoms persist, follow-up radiographs and/or CT or MRI may be helpful for further evaluation. Dictated by: Lew Everett M.D. on 04/18/2023 at 10:46 Approved by: Lew Everett M.D. on 04/18/2023 at 10:49
--- NOTE | 2023-04-18 09:12 | DI.RAD.S_ITS ---
PROCEDURE: XR CERVICAL SPINE 2V OR 3V INDICATIONS: chronic neck and shoulder pain TECHNIQUE: 3 view(s) of the cervical spine were acquired. COMPARISON: None. FINDINGS: Bones: No fractures or dislocations to the C7 level. The lateral masses of C1 appear intact on the odontoid view. No suspicious bony lesions. Straightening of the normal cervical lordosis, a finding which can be seen in the setting of muscle strain and/or spasm. Mild-moderate multilevel degenerative changes with disc height loss, endplate spurring, and facet arthropathy. Soft tissues: No prevertebral soft tissue swelling. IMPRESSION: Multilevel degenerative changes of the cervical spine. Dictated by: Lew Everett M.D. on 04/18/2023 at 10:41 Approved by: Lew Everett M.D. on 04/18/2023 at 10:46
== END ==
PROVIDERS: PCP Family Medicine; Referring Provider Family Medicine; Visit Provider Family Medicine
DX: M54.2 Cervicalgia (principal); M25.512 Pain in left shoulder; M47.812 Spondylosis without myelopathy or radiculopathy, cervical region
CPT/HCPCS: 72040; 73030

== ENCOUNTER → 2023-06-28 07:45 | Outpatient (CLI) | payer OTHER, SELFPAY ==
[2023-06-28 09:01] LABS: Hemoglobin A1C% w Est Avg Glu 6.2 % (4.0-6.0)
[2023-06-28 09:02] LABS: BUN Creatinine Ratio 27.3 (6-22); Blood Urea Nitrogen 35 mg/dL (9-20); Calcium 10.3 mg/dL (8.4-10.2); Carbon Dioxide 24 mmol/L (22-32); Chloride 100 mmol/L (98-107); Estimated Glomerular Filt Rate > 60 mL/min (>60); Glucose 88 mg/dL (80-110); HEMOLYSIS < 15 (0-50); Potassium 4.8 mmol/L (3.4-5.1); Sodium 135 mmol/L (137-145); Uric Acid 6.4 mg/dL (3.5-8.5)
[2023-06-28 09:45] LABS: Creatinine Urine Random 98.6 mg/dL
[2023-06-28 09:50] LABS: Protein (Total) Urine Random 8 mg/dL (0-12); Protein Creatinine Ratio Urine 0.08 GRAM/24H
[2023-06-28 09:53] LABS: Microalbumi Creatinin Ratio Ur 30.4 ug/mg CR (<30)
[2023-06-30 09:15] LABS: Parathyroid Hormone Int 61 pg/mL (15-65)
== END ==
PROVIDERS: PCP Family Medicine; Referring Provider Student in an Organized Health Care Education/Training Program; Visit Provider Student in an Organized Health Care Education/Training Program
DX: M10.00 Idiopathic gout, unspecified site (principal); N05.9 Unspecified nephritic syndrome with unspecified morphologic changes; R80.9 Proteinuria, unspecified; N25.81 Secondary hyperparathyroidism of renal origin; E11.9 Type 2 diabetes mellitus without complications; N18.30 Chronic kidney disease, stage 3 unspecified
CPT/HCPCS: 36415; 80048; 82043; 82570; 83036; 83970; 84156; 84550

== ENCOUNTER → 2023-09-26 07:14 | Outpatient (CLI) | payer OTHER, SELFPAY ==
[2023-09-26 08:41] LABS: Prostate Specific Antigen 3.91 ng/mL (0.10-4.00)
== END ==
PROVIDERS: PCP Family Medicine; Referring Provider Specialist; Visit Provider Specialist
DX: Z87.898 Personal history of other specified conditions (principal)
CPT/HCPCS: 36415; 84153

== ENCOUNTER → 2023-10-11 08:20 | Outpatient (CLI) | payer OTHER, SELFPAY ==
[2023-10-11 10:07] LABS: Hemoglobin A1C% w Est Avg Glu 6.2 % (4.0-6.0)
[2023-10-11 11:02] LABS: HIV 1 & 2 Ab/Ag 4th Gen Combo NEGATIVE (NEGATIVE); Hep C Virus Ab w/Reflex Quant NEGATIVE s/c (NEGATIVE)
== END ==
PROVIDERS: PCP Family Medicine; Referring Provider Family Medicine; Visit Provider Family Medicine
DX: E66.9 Obesity, unspecified (principal); N18.30 Chronic kidney disease, stage 3 unspecified; E11.9 Type 2 diabetes mellitus without complications; Z11.59 Encounter for screening for other viral diseases; Z11.4 Encounter for screening for human immunodeficiency virus [HIV]; I10 Essential (primary) hypertension
CPT/HCPCS: 36415; 83036; 86803; 87389

== ENCOUNTER → 2023-10-18 11:59 | Outpatient (CLI) | payer OTHER, SELFPAY ==
[2023-10-18 13:08] LABS: BUN Creatinine Ratio 23.7 (6-22); Blood Urea Nitrogen 31 mg/dL (9-20); Calcium 10.3 mg/dL (8.4-10.2); Carbon Dioxide 25 mmol/L (22-32); Chloride 107 mmol/L (98-107); Estimated Glomerular Filt Rate > 60 mL/min (>60); Glucose 106 mg/dL (80-110); HEMOLYSIS < 15 (0-50); Potassium 4.6 mmol/L (3.4-5.1); Sodium 139 mmol/L (137-145); Uric Acid 5.8 mg/dL (3.5-8.5)
[2023-10-18 13:40] LABS: Creatinine Urine Random 77.7 mg/dL; Protein (Total) Urine Random 8 mg/dL (0-12)
[2023-10-20 07:36] LABS: Parathyroid Hormone Int 53 pg/mL (15-65)
== END ==
PROVIDERS: PCP Family Medicine; Referring Provider Student in an Organized Health Care Education/Training Program; Visit Provider Student in an Organized Health Care Education/Training Program
DX: N05.9 Unspecified nephritic syndrome with unspecified morphologic changes (principal); N25.81 Secondary hyperparathyroidism of renal origin; M10.00 Idiopathic gout, unspecified site; R80.9 Proteinuria, unspecified
CPT/HCPCS: 36415; 80048; 82570; 83970; 84156; 84550

== ENCOUNTER → 2024-01-23 07:25 | Outpatient (CLI) | payer OTHER, SELFPAY ==
[2024-01-23 10:35] LABS: BUN Creatinine Ratio 19.4 (6-22); Blood Urea Nitrogen 25 mg/dL (9-20); Calcium 9.3 mg/dL (8.4-10.2); Carbon Dioxide 25 mmol/L (22-32); Chloride 108 mmol/L (98-107); Estimated Glomerular Filt Rate > 60 mL/min (>60); Glucose 109 mg/dL (80-110); HEMOLYSIS < 15 (0-50); Potassium 4.6 mmol/L (3.4-5.1); Sodium 139 mmol/L (137-145)
[2024-01-23 10:53] LABS: Vitamin D 25 Hydroxy (D3) 25.3 ng/mL (30.0-100.0)
[2024-01-25 15:36] LABS: Immunoglobulin A, Serum 374 mg/dL (61-437); Immunoglobulin G,Serum 870 mg/dL (603-1613); Immunoglobulin M, Serum 46 mg/dL (20-172)
[2024-01-25 19:21] LABS: Albumin 3.5 g/dL (2.9-4.4); Alpha-1-Globulin 0.2 g/dL (0.0-0.4); Alpha-2-Globulin 0.8 g/dL (0.4-1.0); Globulin Total 3.2 g/dL (2.2-3.9); Protein, Total 6.7 g/dL (6.0-8.5)
[2024-01-26 12:30] LABS: Alpha-1 Globulin, Ur 2.7 % (.); Beta Globulin, Ur 13.1 % (.); Gamma Globulin, Ur 7.2 % (.); M-Spike % Not Observed % (Not Observed); Urine Total Protein 41.3 mg/dL (Not Estab.)
== END ==
PROVIDERS: PCP Family Medicine; Referring Provider Student in an Organized Health Care Education/Training Program; Visit Provider Student in an Organized Health Care Education/Training Program
DX: N05.9 Unspecified nephritic syndrome with unspecified morphologic changes (principal); D47.2 Monoclonal gammopathy; E55.9 Vitamin D deficiency, unspecified
CPT/HCPCS: 36415; 80048; 82306; 82784; 84155; 84156; 84165; 84166; 86334; 86335

== ENCOUNTER → 2024-06-11 07:08 | Outpatient (CLI) | payer OTHER, SELFPAY ==
[2024-06-11 09:09] LABS: Hemoglobin A1C% w Est Avg Glu 6.4 % (4.0-6.0)
[2024-06-11 09:16] LABS: BUN Creatinine Ratio 18.1 (6-22); Blood Urea Nitrogen 21 mg/dL (9-20); Calcium 9.8 mg/dL (8.4-10.2); Carbon Dioxide 24 mmol/L (22-32); Chloride 106 mmol/L (98-107); Estimated Glomerular Filt Rate > 60 mL/min (>60); Glucose 117 mg/dL (80-110); HEMOLYSIS < 15 (0-50); Potassium 4.4 mmol/L (3.4-5.1); Sodium 139 mmol/L (137-145)
== END ==
PROVIDERS: PCP Family Medicine; Referring Provider Family Medicine; Visit Provider Family Medicine
DX: N18.30 Chronic kidney disease, stage 3 unspecified (principal); E11.29 Type 2 diabetes mellitus with other diabetic kidney complication; E66.9 Obesity, unspecified; M25.512 Pain in left shoulder; M79.644 Pain in right finger(s); M79.645 Pain in left finger(s)
CPT/HCPCS: 36415; 80048; 83036

== ENCOUNTER → 2024-08-31 07:19 | Outpatient (CLI) | payer OTHER, SELFPAY ==
[2024-08-31 08:13] LABS: Hematocrit 46.8 % (41-53); Hemoglobin 16.1 g/dL (13.5-17.5); Mean Corpuscular HGB Conc 34.3 % (30-36); Mean Corpuscular Hemoglobin 30.9 PG (26-34); Mean Corpuscular Volume 90.2 fL (80-100); Platelet Count 275 X10^3/uL (150-400); Red Blood Cell Count 5.19 X10^6/uL (4.5-5.9); Red Cell Distribution Width 14.3 % (11.6-14.8); White Blood Cell Count 6.8 X10^3/uL (4.5-11.0)
[2024-08-31 08:24] LABS: Hemoglobin A1C% w Est Avg Glu 6.1 % (4.0-6.0)
[2024-08-31 08:53] LABS: Alanine Aminotransferase 29 IU/L (<50); Albumin 4.6 g/dL (3.5-5.0); Albumin Globulin Ratio 1.9 (1.0-2.8); Alkaline Phosphatase 81 U/L (38-126); Aspartate Aminotransferase 26 IU/L (17-59); BUN Creatinine Ratio 16.4 (6-22); Bilirubin Total 1.5 mg/dL (0.2-1.3); Blood Urea Nitrogen 22 mg/dL (9-20); Carbon Dioxide 25 mmol/L (22-32); Chloride 107 mmol/L (98-107); Cholesterol 119 mg/dL (140-199); Estimated Glomerular Filt Rate 59 mL/min (>60); Globulin 2.4 g/dL (1.7-4.1); Glucose 113 mg/dL (80-110); HDL Cholesterol 43 mg/dL (40-60); HEMOLYSIS < 15 (0-50); LDL Cholesterol Calculated 54 mg/dL (<100); Potassium 4.4 mmol/L (3.4-5.1); Sodium 139 mmol/L (137-145); Triglycerides 111 mg/dL (35-150)
== END ==
LOC: LAB 07:21
PROVIDERS: PCP Family Medicine; Referring Provider Family Medicine; Visit Provider Family Medicine
DX: E11.29 Type 2 diabetes mellitus with other diabetic kidney complication (principal); E66.9 Obesity, unspecified; N18.30 Chronic kidney disease, stage 3 unspecified; E78.5 Hyperlipidemia, unspecified; I12.9 Hypertensive chronic kidney disease with stage 1 through stage 4 chronic kidney disease, or unspecified chronic kidney disease
CPT/HCPCS: 36415; 80053; 80061; 83036; 85027

== ENCOUNTER → 2024-09-30 10:29 | Outpatient (CLI) | payer OTHER, SELFPAY ==
[2024-09-30 11:20] LABS: COVID-19 CEPHEID 4-PLEX PCR POSITIVE (Negative); Influenza A - CEPHEID Flu A NEGATIVE (NEGATIVE); Influenza B - CEPHEID Flu B NEGATIVE (NEGATIVE); Respiratory Syncytial Virus Negative (Negative)
== END ==
PROVIDERS: PCP Family Medicine; Visit Provider Nurse Practitioner Family
DX: R05.1 Acute cough (principal)
CPT/HCPCS: 0241U

== ENCOUNTER → 2024-11-29 10:36 | Outpatient (CLI) | payer MEDICARE, SELFPAY ==
[2024-11-29 12:19] LABS: Add Manual Diff / Slide Review NO; Basophils Absolute Auto 0 /uL (0-100); Basophils Percent Auto 0.6 % (0-2); Eosinophils Absolute Auto 400 /uL (0-450); Eosinophils Percent Auto 4.6 % (2-4); Hematocrit 49.4 % (41-53); Hemoglobin 16.9 g/dL (13.5-17.5); Lymphocytes Absolute Auto 1800 /uL (1100-4500); Lymphocytes Percent Auto 22.6 % (25-40); Mean Corpuscular HGB Conc 34.2 % (30-36); Mean Corpuscular Hemoglobin 30.9 PG (26-34); Mean Corpuscular Volume 90.3 fL (80-100); Monocytes Absolute Auto 700 /uL (0-900); Monocytes Percent Auto 8.6 % (3-14); Neutrophils Absolute Auto 4900 /uL (1500-7000); Neutrophils Percent Auto 63.6 % (50-75); Platelet Count 304 X10^3/uL (150-400); Red Blood Cell Count 5.47 X10^6/uL (4.5-5.9); Red Cell Distribution Width 14.2 % (11.6-14.8); White Blood Cell Count 7.7 X10^3/uL (4.5-11.0)
[2024-11-29 12:48] LABS: Appearance Urine UA CLEAR; Bilirubin Urine UA NEGATIVE (NEGATIVE); Color Urine UA YELLOW; Glucose Urine UA NEGATIVE (Negative); Ketones Urine UA NEGATIVE (NEGATIVE); Leukocyte Esterase Urine UA NEGATIVE (NEGATIVE); Nitrite Urine UA NEGATIVE (Negative); Occult Blood Urine UA TRACE-INTACT (Negative); Protein Urine UA 2+ (Negative); Specific Gravity Urine UA >=1.030 (1.000-1.035); Urobilinogen Urine UA 0.2 E.U./dL (0.2); pH Urine UA 5.5 (4.5-8.0)
[2024-11-29 12:52] LABS: Alanine Aminotransferase 28 IU/L (<50); Albumin 4.8 g/dL (3.5-5.0); Albumin Globulin Ratio 1.7 (1.0-2.8); Alkaline Phosphatase 85 U/L (38-126); Aspartate Aminotransferase 27 IU/L (17-59); BUN Creatinine Ratio 18.2 (6-22); Bilirubin Total 1.8 mg/dL (0.2-1.3); Blood Urea Nitrogen 22 mg/dL (9-20); C-Reactive Protein Quant < 0.5 mg/dL (<1.0); Calcium 10.2 mg/dL (8.4-10.2); Carbon Dioxide 23 mmol/L (22-32); Chloride 106 mmol/L (98-107); Estimated Glomerular Filt Rate > 60 mL/min (>60); Globulin 2.9 g/dL (1.7-4.1); Glucose 93 mg/dL (80-110); HEMOLYSIS < 15 (0-50); Potassium 4.5 mmol/L (3.4-5.1); Sodium 140 mmol/L (137-145); Total Protein 7.7 g/dL (6.3-8.2)
[2024-11-29 12:54] LABS: Amorphous Sediment Urine 1+; Bacteria Urine None Seen; Culture Indicated Urine Cult Not Indicated; RBC Urine 1-5/HPF (0-5/HPF); Squamous Epithelial Cell Urine None Seen (0-5/HPF); Urine Volume 10mL (spun); WBC Urine None Seen (0-5/HPF)
== END ==
PROVIDERS: PCP Family Medicine; Referring Provider Internal Medicine Cardiovascular Disease; Visit Provider Internal Medicine Cardiovascular Disease
DX: M13.0 Polyarthritis, unspecified (principal)
CPT/HCPCS: 36415; 80053; 81001; 83036; 85025; 86140

== ENCOUNTER → 2025-01-03 10:13 | Outpatient (CLI) | payer MEDICARE, SELFPAY ==
--- NOTE | 2025-01-03 10:15 | DI.ECHO.S_ITS ---
[facility] : : [address] : : [place] : : [id number] : : Phone: [phone] Echocardiogram Report + + :Name: LEONA JIANG Study Date: 01/03/2025 Height: 72 in : :[facility] ReadingLocation: Weight: 271 lb : : Gender: Male BSA: 2.4 m2 : :: 1960 Age: 64 yrs BP: 161/99 mmHg: :Reason For Study: HYPERTENSION : :Ordering Physician: CHRISTIANO, : :BRITT Adames Performed By: Jose R Pina : :Referring: BRITT ALVARADO : + + Interpretation Summary The left ventricle is normal in size. The ejection fraction is estimated to be 60-65%. There are no obvious focal wall motion abnormalities noted but poor endocardial definition reduces the sensitivity for the detection of such. Diastolic parameters suggest a relaxation abnormality of the left ventricle, consistent with probable normal filling pressures. The right ventricle is not well visualized. The left atrium grossly appears normal in size. There is no significant valvular heart disease. The aortic root is mildly dilated. The ascending aorta is mildly enlarged. Procedure: The study quality was technically difficult. A two-dimensional transthoracic echocardiogram with color flow and Doppler was performed. A contrast injection of Definity was performed to improve assessment of LV function. There is no prior echocardiogram noted for this patient. The patient was in normal sinus rhythm during the exam. Left Ventricle: The left ventricle is normal in size. Left ventricular wall thickness is mildly increased. There is no ventricular septal defect visualized. The ejection fraction is estimated to be 60-65%. There are no obvious focal wall motion abnormalities noted but poor endocardial definition reduces the sensitivity for the detection of such. Diastolic parameters suggest a relaxation abnormality of the left ventricle, consistent with probable normal filling pressures. Right Ventricle: The right ventricle is not well visualized. Atria: The left atrium grossly appears normal in size. The right atrium grossly appears normal in size. The interatrial septum is not well visualized. Mitral Valve: The mitral valve is grossly normal. There is no mitral regurgitation noted. Aortic Valve: The aortic valve is trileaflet. The aortic valve opens well. No aortic regurgitation is present. Tricuspid Valve: The tricuspid valve is not well visualized, but is grossly normal. No tricuspid regurgitation. Pulmonic Valve: The pulmonic valve is not well seen, but is grossly normal. There is no pulmonic valvular regurgitation. There is no significant valvular heart disease. Great Vessels: The aortic root is mildly dilated. The ascending aorta is mildly enlarged. The pulmonary artery is normal size. The IVC is of normal diameter and collapses greater than 50% with a sniff. This suggests a low right atrial pressure of 3 mm Hg. Pericardium/ Pleura There is no pericardial effusion. There is no pleural effusion. MMode/2D Measurements & Calculations LVIDd: 4.8 cm LVOT diam: 2.1 cm LVIDs: 3.2 cm Ao root diam: 4.4 cm FS: 33.7 % asc Aorta Diam: 4.0 cm EPSS: 0.86 cm IVSd: 1.4 cm LVPWd: 1.3 cm LV palmer. diameter/BSA (cm/m^2): 2.0 LV sys. diameter/BSA (cm/m^2): 1.3 LA A2 area: 15.1 cm2 RA long axis: 4.6 cm LA A4 area: 13.2 cm2 RA area: 15.3 cm2 LA length (vol): 4.7 cm RA vol: 42.8 ml LA vol: 36.0 ml RA : 17.7 ml/m2 LA vol index: 14.8 ml/m2 IVC diam: 0.93 cm TAPSE: 2.9 cm Doppler Measurements & Calculations Ao V2 max: 123.8 cm/sec LVOT Max Juan: 107.5 cm/sec Ao V2 mean: 91.4 cm/sec LV V1 max P.6 mmHg Ao max P.1 mmHg LV V1 VTI: 25.7 cm Ao mean P.6 mmHg VANESSA(I,D): 3.6 cm2 Ao V2 VTI: 24.4 cm VANESSA(V,D): 3.0 cm2 sev ratio: 1.1 VANSESA indexed to BSA (cm^2/m^2): 1.5 MV E max juan: 72.3 cm/sec PA V2 max: 130.0 cm/sec MV A max juan: 79.3 cm/sec PA V2 mean: 83.6 cm/sec MV E/A: 0.91 PA mean P.3 mmHg Med Peak E' Juan: 7.9 cm/sec PA pr(Accel): 48.2 mmHg E/E' med: 9.2 Lat Peak E' Juan: 6.3 cm/sec E/E' lat: 11.5 E/e' average: 10.3 MV dec time: 0.24 sec SV(LVOT): 88.0 ml Reading Physician:02:22 PM
== END ==
LOC: ECHO 10:14
PROVIDERS: PCP Family Medicine; Referring Provider Internal Medicine Cardiovascular Disease; Visit Provider Internal Medicine Cardiovascular Disease
DX: I77.89 Other specified disorders of arteries and arterioles (principal); I12.9 Hypertensive chronic kidney disease with stage 1 through stage 4 chronic kidney disease, or unspecified chronic kidney disease; N18.9 Chronic kidney disease, unspecified; I77.810 Thoracic aortic ectasia; M13.0 Polyarthritis, unspecified; E78.2 Mixed hyperlipidemia
CPT/HCPCS: C8929; Q9957

== ENCOUNTER → 2025-06-14 08:31 | Outpatient (CLI) | payer MEDICARE, SELFPAY ==
[2025-06-14 09:57] LABS: Hemoglobin A1C% w Est Avg Glu 6.0 % (4.0-6.0)
[2025-06-14 10:03] LABS: Blood Urea Nitrogen 18 mg/dL (9-20); Calcium 9.9 mg/dL (8.4-10.2); Carbon Dioxide 22 mmol/L (22-32); Chloride 106 mmol/L (98-107); Estimated Glomerular Filt Rate > 60 mL/min (>60); Glucose 92 mg/dL (70-99); HEMOLYSIS < 15 (0-50); Potassium 4.6 mmol/L (3.4-5.1); Sodium 138 mmol/L (137-145)
--- NOTE | 2025-06-14 14:20 | DI.RAD.S_ITS ---
PROCEDURE: XR SHOULDER LT MIN 2V INDICATIONS: left shoulder and neck pain TECHNIQUE: 3 views of the shoulder were acquired. COMPARISON: [facility], CR, XR SHOULDER LT MIN 2V, 04/18/2023, 9:20. FINDINGS: Bones: Slight deformity distal clavicle may represent an old fracture. No change from 2022 Acromioclavicular and glenohumeral joints: Normal in width and alignment without arthritic change Soft tissues: No soft tissue swelling, calcification or mass. IMPRESSION: Minor deformity distal clavicle may represent old fracture. No change Dictated by: Calvin Duenas M.D. on 06/17/2025 at 12:31 Approved by: Calvin Duenas M.D. on 06/17/2025 at 12:32
--- NOTE | 2025-06-14 14:20 | DI.RAD.S_ITS ---
PROCEDURE: XR CERVICAL SPINE 2V OR 3V INDICATIONS: left shoulder and neck pain TECHNIQUE: Three views of the cervical spine were acquired. COMPARISON: [facility], CR, XR CERVICAL SPINE 2V OR 3V, 04/18/2023, 9:20. FINDINGS: Cervical spine curvature and alignment: Normal. Bones: There are no osseous abnormalities. Disc spaces: Moderate C5-6 C6-7 degenerative disc disease. Mild C2-3 through C7-T1 degenerative facet disease . Soft tissues: No soft tissue swelling, calcification or mass. IMPRESSION: Degeneration Dictated by: Calvin Duenas M.D. on 06/17/2025 at 12:32 Approved by: Calvin Duenas M.D. on 06/17/2025 at 12:33
== END ==
PROVIDERS: PCP Family Medicine; Referring Provider Family Medicine; Visit Provider Family Medicine
DX: E11.22 Type 2 diabetes mellitus with diabetic chronic kidney disease (principal); N18.30 Chronic kidney disease, stage 3 unspecified; M54.2 Cervicalgia; M25.512 Pain in left shoulder
CPT/HCPCS: 36415; 72040; 73030; 80048; 83036

== ENCOUNTER → 2025-07-10 09:59 | Outpatient (CLI) | payer MEDICARE, SELFPAY ==
[2025-07-10 10:30] LABS: Hematocrit 47.0 % (41-53); Hemoglobin 16.0 g/dL (13.5-17.5)
[2025-07-10 10:47] LABS: Blood Urea Nitrogen 17 mg/dL (9-20); Calcium 9.8 mg/dL (8.4-10.2); Carbon Dioxide 23 mmol/L (22-32); Chloride 108 mmol/L (98-107); Estimated Glomerular Filt Rate > 60 mL/min (>60); Glucose 100 mg/dL (70-99); HEMOLYSIS < 15 (0-50); Potassium 4.3 mmol/L (3.4-5.1); Sodium 141 mmol/L (137-145)
[2025-07-10 10:53] LABS: Protein (Total) Urine Random 185 mg/dL (0-12); Protein Creatinine Ratio Urine 1.26 GRAM/24H
== END ==
PROVIDERS: PCP Family Medicine; Referring Provider Student in an Organized Health Care Education/Training Program; Visit Provider Student in an Organized Health Care Education/Training Program
DX: D70.9 Neutropenia, unspecified (principal); N05.9 Unspecified nephritic syndrome with unspecified morphologic changes; N25.81 Secondary hyperparathyroidism of renal origin; R80.9 Proteinuria, unspecified; D63.1 Anemia in chronic kidney disease
CPT/HCPCS: 36415; 80048; 82570; 83970; 84156; 85014; 85018